=== PATIENT | female | born 1975 | race Caucasian/White ===

== ENCOUNTER 2016-09-05 15:38 | Emergency (ER) | payer SELFPAY ==
[2016-09-05 15:53] VITALS: BP 148/91
--- NOTE | 2016-09-05 16:00 | ER Document Report ---
ED Medical Screen (RME) - General Stated Complaint: FACIAL PRESSURE/NAUSEA Mode of Arrival: Ambulatory Notes: Patient presents to the emergency department with a complaint of sinus pressure for one week. She complains of nausea and dizziness. Denies fever vomiting reports history of sinus infections. I have greeted and performed a rapid initial assessment of this patient. A comprehensive ED assessment and evaluation of the patient, analysis of test results and completion of the medical decision making process will be conducted by additional ED providers. TRAVEL OUTSIDE OF THE [place] IN LAST 30 DAYS: No - Related Data Allergies/Adverse Reactions: Penicillins Allergy (Verified 06/30/16 15:29) Hives Past Medical History - Past Medical History Cardiac Medical History: Reports: Hx Hypercholesterolemia - borderline, Hx Hypertension - borderline Denies: Hx Coronary Artery Disease, Hx Heart Attack Pulmonary Medical History: Reports: Hx Asthma - with cold, Hx Bronchitis, Hx Pneumonia Denies: Hx COPD Neurological Medical History: Denies: Hx Cerebrovascular Accident, Hx Seizures Renal/ Medical History: Reports: Hx Kidney Stones GI Medical History: Reports: Hx Gastroesophageal Reflux Disease Musculoskeltal Medical History: Denies Hx Arthritis Past Surgical History: Reports: Hx Section, Hx Kidney (Renal Surgery), Hx Orthopedic Surgery - bilateral calfs for compartment syndrome/ l finger surgery, Hx Pancreatic Surgery. Denies: Hx Hysterectomy, Hx Pacemaker - Immunizations Immunizations up to date: Yes Hx Diphtheria, Pertussis, Tetanus Vaccination: Yes Physical Exam - Vital signs Vitals: Temp Pulse Resp BP Pulse Ox 98.0 F 88 14 148/91 H 97 09/05/16 15:52 09/05/16 15:52 09/05/16 15:52 09/05/16 15:52 09/05/16 15:52 Course - Vital Signs Vital signs: Temp Pulse Resp BP Pulse Ox 98.0 F 88 14 148/91 H 97 09/05/16 15:52 09/05/16 15:52 09/05/16 15:52 09/05/16 15:52 09/05/16 15:52
--- NOTE | 2016-09-05 17:26 | ER Document Report ---
[id number] PRESSURE/NAUSEA Mode of Arrival: Ambulatory Notes: The patient is a 41-year-old female, past medical history multiple episodes of sinusitis, presents with 1 week of left-sided sinus congestion and maxillary pain. She says this feels similar to her prior episodes. She says the pressure is causing mild nausea and intermittent episodes of vertigo. She denies fevers, nasal drainage, headache, vomiting, diarrhea, abdominal pain, ataxia, blurry vision or rash. TRAVEL OUTSIDE OF THE [place] IN LAST 30 DAYS: No - Related Data Allergies/Adverse Reactions: Penicillins Allergy (Verified 09/05/16 15:59) Hives Past Medical History - General Information source: Patient - Social History Smoking Status: Never Smoker Chew tobacco use (# tins/day): No Frequency of alcohol use: Rare Drug Abuse: None Family History: DM, Hypertension Patient has suicidal ideation: No Patient has homicidal ideation: No - Past Medical History Cardiac Medical History: Reports: Hx Hypercholesterolemia - borderline, Hx Hypertension - borderline Denies: Hx Coronary Artery Disease, Hx Heart Attack Pulmonary Medical History: Reports: Hx Asthma - with cold, Hx Bronchitis, Hx Pneumonia Denies: Hx COPD Neurological Medical History: Denies: Hx Cerebrovascular Accident, Hx Seizures Renal/ Medical History: Reports: Hx Kidney Stones. Denies: Hx Peritoneal Dialysis GI Medical History: Reports: Hx Gastroesophageal Reflux Disease Musculoskeltal Medical History: Denies Hx Arthritis Past Surgical History: Reports: Hx Section, Hx Kidney (Renal Surgery), Hx Orthopedic Surgery - bilateral calfs for compartment syndrome/ l finger surgery, Hx Pancreatic Surgery. Denies: Hx Hysterectomy, Hx Pacemaker - Immunizations Immunizations up to date: Yes Hx Diphtheria, Pertussis, Tetanus Vaccination: Yes Review of Systems - Review of Systems Notes: REVIEW OF SYSTEMS: CONSTITUTIONAL: -fevers, -chills EENT: -eye pain, -difficulty swallowing, +sinus congestion CARDIOVASCULAR:-chest pain, -syncope. RESPIRATORY: -cough, -SOB GASTROINTESTINAL: -abdominal pain, +nausea, -vomiting, -diarrhea GENITOURINARY: -dysuria, -hematuria MUSCULOSKELETAL: -back pain, -neck pain SKIN: -rash or skin lesions. HEMATOLOGIC: -easy bruising or bleeding. LYMPHATIC: -swollen, enlarged glands. NEUROLOGICAL: -altered mental status or loss of consciousness, -headache, - neurologic symptoms PSYCHIATRIC: -anxiety, -depression. ALL OTHER SYSTEMS REVIEWED AND NEGATIVE. Physical Exam - Vital signs Vitals: Temp Pulse Resp BP Pulse Ox 98.0 F 88 14 148/91 H 97 09/05/16 15:52 09/05/16 15:52 09/05/16 15:52 09/05/16 15:52 09/05/16 15:52 - Notes Notes: PHYSICAL EXAMINATION: GENERAL: Well-appearing, well-nourished and in no acute distress. HEAD: Atraumatic, normocephalic. EYES: Pupils equal round and reactive to light, extraocular movements intact, sclera anicteric, conjunctiva are normal. ENT: nares patent, oropharynx clear without exudates. Moist mucous membranes. NECK: Normal range of motion, supple without lymphadenopathy LUNGS: Breath sounds clear to auscultation bilaterally and equal. No wheezes rales or rhonchi. HEART: Regular rate and rhythm without murmurs ABDOMEN: Soft, nontender, normoactive bowel sounds. No guarding, no rebound. No masses appreciated. EXTREMITIES: Normal range of motion, no pitting or edema. No cyanosis. NEUROLOGICAL: Cranial nerves grossly intact. Normal speech, normal gait. Normal sensory, motor, and reflex exams. PSYCH: Normal mood, normal affect. SKIN: Warm, Dry, normal turgor, no rashes or lesions noted. Course - Re-evaluation Re-evalutation: Patient appears very well. Spoke to patient not symptomatic treatment with nasal steroids, sinus rinses and antihistamines. Patient requesting a prescription for antibiotics. Told her that this infection is most likely viral and to try the symptomatic treatment, but will provide her with a prescription to fill in one week if her symptoms have not resolved. Told to follow-up with ENT if her symptoms continue to recur. - Vital Signs Vital signs: Temp Pulse Resp BP Pulse Ox 98.5 F 68 16 148/91 H 98 09/05/16 18:26 09/05/16 18:26 09/05/16 18:26 09/05/16 15:52 09/05/16 18:26 Discharge - Discharge Clinical Impression: Sinusitis Qualifiers: Sinusitis location: maxillary Chronicity: chronic Qualified Code(s): J32.0 - Chronic maxillary sinusitis Condition: Good Disposition: HOME, SELF-CARE Additional Instructions: Use Flonase and Zyrtec to help with your nasal congestion. If your symptoms are not better in one week, you may fill your prescription for antibiotics. Sinusitis You have sinusitis, an infection of the sinus cavities of the face. The sinuses are air-filled chambers which open into the inside of the nose. Bacteria and pus fill a sinus, causing pain, drainage, and fever. Sinusitis is treated with antibiotics after 2 weeks of symptoms. Often, expectorants (to thin the sinus mucous) or decongestants (to reduce swelling) are prescribed as well. Healing requires seven to 10 days. Avoid chemical fumes, pollens, dusts, and smoke (especially cigarette smoke ). Keep the air humidified in your bedroom and work area and take plenty of liquids by mouth. This condition can be serious if the infection spreads. If your symptoms worsen, or if you develop severe headache, high fever, stiff neck, or a rash, you must call the doctor or return for re-evaluation. Prescriptions: Doxycycline Hyclate 100 mg PO BID #14 capsule Fluticasone Propionate [Flonase Nasal [place] 50 Mcg/[place] 16 gm] 1 spray NASL Q12 #1 inhaler Ondansetron [Zofran Odt 4 mg Tablet] 1 - 2 tab PO Q4H PRN #15 tab.rapdis PRN Reason: For Nausea/Vomiting
== END 2016-09-05 18:00 | disposition home or self-care (01) ==
LOC: ER 15:38
DX: J32.0 Chronic maxillary sinusitis (principal); R11.0 Nausea; R42 Dizziness and giddiness; Z87.442 Personal history of urinary calculi; Z88.0 Allergy status to penicillin
CPT/HCPCS: 99283

== ENCOUNTER 2016-09-10 07:52 | Emergency (ER) | payer SELFPAY ==
--- NOTE | 2016-09-10 08:33 | EKG REPORT ---
SEVERITY:- NORMAL ECG - SINUS RHYTHM : Confirmed by: Annabel Thomas 10-Sep-2016 08:32:59
--- NOTE | 2016-09-10 11:45 | ER Document Report ---
HPI - HPI Patient complains to provider of: dizzy, lighthead Onset: Yesterday - mild yesterday Onset/Duration: Sudden Pain Level: 3 Context: 41 yo non dm, non htn, non hyperlipidemic, non smoker, female had mild dizziness yesterday, but this am at the laundry mat when she bent forward at 7 am got very dizzy that lasted less than a minute. If she sat down it would go away quickly. Tx with doxycycline for sinus infection on 09-05-16 (3 days). She looked up about this rX lists it as a side effect. still has pressure on left maxillary sinus. no fever. some headache. Prior to the laundry mat, got dizzy after bending forward also had tightness in upper chest, like closing up like asthma attack (lasted few minuytes) Feeling anxious at the time, sat down to calm herself down. NO chest tightness now, mild dizziness.. Wants to continue the doxycycline, only 3 days left. EKG NSR. FHx: mom htn, hyperlipid,dm dad hyperlipids Associated Symptoms: None Exacerbated by: Denies Relieved by: Denies Similar symptoms previously: No Recently seen / treated by doctor: No - ROS ROS below otherwise negative: Yes Systems Reviewed and Negative: Yes All other systems reviewed and negative - CARDIOVASCULAR Cardiovascular: DENIES: Chest pain - REPRODUCTIVE Reproductive: DENIES: : - DERM Skin Color: Normal Past Medical History - General Information source: Patient - Social History Smoking Status: Never Smoker Chew tobacco use (# tins/day): No Frequency of alcohol use: None Drug Abuse: None Lives with: Spouse/Significant other Family History: DM, Hypertension Patient has suicidal ideation: No Patient has homicidal ideation: No - Past Medical History Cardiac Medical History: Reports: Hx Hypercholesterolemia - borderline, Hx Hypertension - borderline Pulmonary Medical History: Reports: Hx Asthma - with cold, Hx Bronchitis, Hx Pneumonia Renal/ Medical History: Reports: Hx Kidney Stones. Denies: Hx Peritoneal Dialysis GI Medical History: Reports: Hx Gastroesophageal Reflux Disease Past Surgical History: Reports: Hx Section, Hx Kidney (Renal Surgery), Hx Orthopedic Surgery - bilateral calfs for compartment syndrome/ l finger surgery, Hx Pancreatic Surgery. Denies: Hx Hysterectomy, Hx Pacemaker - Immunizations Immunizations up to date: Yes Hx Diphtheria, Pertussis, Tetanus Vaccination: Yes Vertical Provider Document - CONSTITUTIONAL Agree With Documented VS: Yes Exam Limitations: No Limitations General Appearance: No Apparent Distress - INFECTION CONTROL TRAVEL OUTSIDE OF THE [place] IN LAST 30 DAYS: No - HEENT HEENT: Atraumatic, Normocephalic. negative: Conjuctival Injection, Tympanic Membrane Red Notes: points to left maxillary sinus area for pain - NECK Neck: Supple. negative: Lymphadenopathy-Left, Lymphadenopathy-Right - RESPIRATORY Respiratory: Breath Sounds Normal, No Respiratory Distress O2 Sat by Pulse Oximetry: 99 - CARDIOVASCULAR Cardiovascular: Regular Rate, Regular Rhythm - GI/ABDOMEN Gastrointestinal: Abdomen Soft, Abdomen Non-Tender, No Organomegaly - MUSCULOSKELETAL/EXTREMETIES Musculoskeletal/Extremeties: MAEW, FROM, Non-Tender - NEURO Level of Consciousness: Awake, Alert, Appropriate Motor/Sensory: No Motor Deficit, No Sensory Deficit Notes: romberg negative - DERM Integumentary: Warm, Dry, No Rash Course - Re-evaluation Re-evalutation: 09/10/16 12:[address] Toledo for disposition. ok to go home, referral for dizziness - Vital Signs Vital signs: Temp Pulse Resp BP Pulse Ox 97.5 F 78 18 153/94 H 99 09/10/16 07:59 09/10/16 07:59 09/10/16 07:59 09/10/16 07:59 09/10/16 07:59 Discharge - Discharge Clinical Impression: dizziness, episode of chest tightness, hx sinus infection, Elevated blood pressure reading Condition: Good Disposition: HOME, SELF-CARE Instructions: Dizziness ([facility]), Meclizine ([facility]), High Blood Pressure ([facility]), Family Physicians / Practices Additional Instructions: see your doctor for follow up, if you don't have one, I have given you a list, your blood pressures here when you come to the ER are elevated today and previous visits referral to neurologist if the dizziness persists to er if worse Prescriptions: Meclizine HCl [Verticalm] 25 mg PO QIDP PRN #30 tablet PRN Reason: Referrals: DENIZ FAUSTIN MD [ACTIVE STAFF] - Follow up as needed
[2016-09-10] MEDS ORDERED: MECLIZINE HCL 25 MG TABLET PO ONE (12:08)
[2016-09-10 12:50] VITALS: BP 140/93
== END 2016-09-10 12:49 | disposition home or self-care (01) ==
LOC: ER 07:52
DX: R42 Dizziness and giddiness (principal); R07.9 Chest pain, unspecified; E78.00 Pure hypercholesterolemia, unspecified; K21.9 Gastro-esophageal reflux disease without esophagitis; Z87.442 Personal history of urinary calculi
CPT/HCPCS: 71020; 93005; 93010; 99284

== ENCOUNTER 2016-12-14 12:47 | Inpatient (IN) | payer MEDICAID ==
[~2016-12-14 12:47] MED LIST: DEXAMETHASONE SOD PHOSPHATE INJ 4 MG/1 ML VIAL ONE; GLYCOPYRROLATE INJ 0.4 MG/2 ML VIAL ONE; LIDOCAINE 2% INJ-PF (20 MG/ML) 10 ML AMPUL ONE; METOCLOPRAMIDE HCL INJ/PF 10 MG/2 ML SDV ONE; NEOSTIGMINE METHYLSULFATE 10 MG/10 ML VIAL ONE; ONDANSETRON HCL INJ/PF 4 MG/2 ML SDV ONE; ROCURONIUM BROMIDE INJ 50 MG/5 ML VIAL IV ONE; SUCCINYLCHOLINE CHLORIDE INJ 200 MG/10 ML VIAL ONE
[2016-12-14] MEDS ORDERED: METOCLOPRAMIDE HCL ORAL SOLN 10 MG/10 ML UDCUP PO ONE (13:55)
[2016-12-14] MEDS ORDERED: LIDOCAINE 2% VISCOUS SOLN 20 ML UDCUP PO ONE (13:55)
[2016-12-14] MEDS ORDERED: MAG HYDROX/AL HYDROX/SIMETH SUSP 30 ML UDCUP PO ONE (13:55)
--- NOTE | 2016-12-14 13:57 | ER Document Report ---
ED GI/ - General Chief Complaint: Epigastric Pain Stated Complaint: ABDOMINAL PAIN Time Seen by Provider: 12/14/16 13:54 Mode of Arrival: Ambulatory Information source: Patient TRAVEL OUTSIDE OF THE [place] IN LAST 30 DAYS: No - HPI Patient complains to provider of: Abdominal pain Onset: Yesterday Timing/Duration: Persistent Quality of pain: Achy Severity at maximum: Moderate Severity in ED: Moderate Pain Level: 3 Location: Epigastric Associated symptoms: Diarrhea - White Colored stool, Nausea Exacerbated by: Food Relieved by: Denies Similar symptoms previously: No Recently seen / treated by doctor: No Notes: 12/14/16 13:56 It is a 41-year-old female who presents to the emergency room for epigastric abdominal pain has been going on since yesterday, worsened by food, she noted a whitish colored stool this morning as well, she reports nausea but no vomiting, no fever chills, no urinary symptoms, no history of similar symptoms previously , she does have a history of acid reflux, took Tums today without any relief of symptoms - Related Data Allergies/Adverse Reactions: Penicillins Allergy (Verified 12/14/16 13:54) Hives Past Medical History - General Information source: Patient - Social History Smoking Status: Never Smoker Chew tobacco use (# tins/day): No Frequency of alcohol use: None Drug Abuse: None Family History: DM, Hypertension Patient has suicidal ideation: No Patient has homicidal ideation: No - Past Medical History Cardiac Medical History: Reports: Hx Hypercholesterolemia - borderline, Hx Hypertension - borderline Denies: Hx Coronary Artery Disease, Hx Heart Attack Pulmonary Medical History: Reports: Hx Asthma - with cold, Hx Bronchitis, Hx Pneumonia Denies: Hx COPD Neurological Medical History: Denies: Hx Cerebrovascular Accident, Hx Seizures Renal/ Medical History: Reports: Hx Kidney Stones. Denies: Hx Peritoneal Dialysis GI Medical History: Reports: Hx Gastroesophageal Reflux Disease Musculoskeltal Medical History: Denies Hx Arthritis Past Surgical History: Reports: Hx Section, Hx Kidney (Renal Surgery), Hx Orthopedic Surgery - bilateral calfs for compartment syndrome/ l finger surgery, Hx Pancreatic Surgery. Denies: Hx Hysterectomy, Hx Pacemaker - Immunizations Immunizations up to date: Yes Hx Diphtheria, Pertussis, Tetanus Vaccination: Yes Review of Systems - Review of Systems Constitutional: No symptoms reported EENT: No symptoms reported Cardiovascular: No symptoms reported Respiratory: No symptoms reported Gastrointestinal: See HPI Genitourinary: No symptoms reported Female Genitourinary: No symptoms reported Musculoskeletal: No symptoms reported Skin: No symptoms reported Hematologic/Lymphatic: No symptoms reported Neurological/Psychological: No symptoms reported -: Yes All other systems reviewed and negative Physical Exam - Vital signs Vitals: Temp Pulse Resp BP Pulse Ox 98 F 76 18 166/82 H 97 12/14/16 13:10 12/14/16 13:10 12/14/16 13:10 12/14/16 13:10 12/14/16 13:10 Interpretation: Normal - General General appearance: Appears well, Alert - HEENT Head: Normocephalic, Atraumatic Eyes: Normal Pupils: PERRL - Respiratory Respiratory status: No respiratory distress Chest status: Nontender Breath sounds: Normal Chest palpation: Normal - Cardiovascular Rhythm: Regular Heart sounds: Normal auscultation Murmur: No - Abdominal Inspection: Normal Distension: No distension Bowel sounds: Normal Tenderness: Tender - epigastric Organomegaly: No organomegaly - Back Back: Normal, Nontender - Extremities General upper extremity: Normal inspection, Nontender, Normal color, Normal ROM , Normal temperature General lower extremity: Normal inspection, Nontender, Normal color, Normal ROM , Normal temperature, Normal weight bearing. No: Hamlet's sign - Neurological Neuro grossly intact: Yes Cognition: Normal Orientation: AAOx4 Wale Coma Scale Eye Opening: Spontaneous Avinger Coma Scale Verbal: Oriented Wale Coma Scale Motor: Obeys Commands Wale Coma Scale Total: 15 Speech: Normal Motor strength normal: LUE, RUE, LLE, RLE Sensory: Normal - Psychological Associated symptoms: Normal affect, Normal mood - Skin Skin Temperature: Warm Skin Moisture: Dry Skin Color: Normal Course - Re-evaluation Re-evalutation: 12/14/16 16:27 Was discussed with on-call surgeon, Dr. Piper, who agrees to admit for further evaluation and treatment - Vital Signs Vital signs: Temp Pulse Resp BP Pulse Ox 97.9 F 67 18 144/79 H 98 12/14/16 16:50 12/14/16 16:50 12/14/16 16:50 12/14/16 16:50 12/14/16 16:50 - Laboratory Result Diagrams: 12/14/16 14:15 12/14/16 14:15 Laboratory results interpreted by me: 12/14/16 12/14/16 12/14/16 14:15 14:15 14:15 RDW 14.1 H Total Bilirubin 2.8 H Direct Bilirubin 1.5 H AST 970 H ALT 527 H Alkaline Phosphatase 187 H Urine Blood SMALL H Urine Urobilinogen 2.0 H - Diagnostic Test Radiology reviewed: Image reviewed, Reports reviewed - Consults Dr Piper Time consulted: 16:58 Reason for consultation: 12/14/16 16:58 RUQ pain, cholelithiasis Consulted provider: will come to ER - Transfer of Care Care transferred to following provider: Dr Piper Discharge - Discharge Clinical Impression: Cholecystitis Cholelithiasis Qualifiers: Cholelithiasis location: gallbladder Cholecystitis presence: with cholecystitis Cholecystitis acuity: acute Biliary obstruction: without biliary obstruction Qualified Code(s): K80.00 - Calculus of gallbladder with acute cholecystitis without obstruction Condition: Stable Disposition: ADMITTED INPATIENT Admitting Provider: Surgicalist Unit Admitted: Surgical Floor
[2016-12-14 14:37] LABS: ABSOLUTE EOSINOPHILS # (AUTO) 0.1 10^3/uL (0.0-0.6); ABSOLUTE LYMPHOCYTES (AUTO) 1.6 10^3/uL (0.5-4.7); ABSOLUTE MONOCYTES (AUTO) 0.5 10^3/uL (0.1-1.4); ABSOLUTE NEUT (AUTO) 5.4 10^3/uL (1.7-8.2); BASOPHILS % (AUTO) 0.5 % (0-2); EOSINOPHILS % (AUTO) 0.9 % (0-6); HEMATOCRIT 38.8 % (36.0-47.0); HGB HCT DIFFERENCE 0.2; LYMPHOCYTES % (AUTO) 21.4 % (13-45); MEAN CORPUSCULAR HEMOGLOBIN 29.6 pg (27.0-33.4); MEAN CORPUSCULAR HGB CONC 33.6 g/dL (32.0-36.0); MEAN CORPUSCULAR VOLUME 88 fl (80-97); MONOCYTES % (AUTO) 6.1 % (3-13); RED BLOOD COUNT 4.39 10^6/uL (3.72-5.28); RED CELL DISTRIBUTION WIDTH 14.1 % (11.5-14.0); SEGMENTED NEUTROPHILS % (AUTO) 71.1 % (42-78); WHITE BLOOD COUNT 7.7 10^3/uL (4.0-10.5)
[2016-12-14 14:54] LABS: APPEARANCE,URINE CLOUDY; BILIRUBIN,URINE NEGATIVE (NEGATIVE); CALCIUM OXALATE CRYSTALS,URINE TOO NUMEROUS TO CNT /HPF; GLUCOSE, URINE NEGATIVE (NEGATIVE); KETONES,URINE NEGATIVE (NEGATIVE); LEUKOCYTE ESTERASE,URINE NEGATIVE (NEGATIVE); NITRITE,URINE NEGATIVE (NEGATIVE); PROTEIN,URINE NEGATIVE (NEGATIVE); URINE SPECIFIC GRAVITY 1.023
[2016-12-14 15:05] LABS: ALANINE AMINOTRANSFERASE 527 U/L (9-52); ALBUMIN 4.5 g/dL (3.5-5.0); ALKALINE PHOSPHATASE 187 U/L (38-126); ANION GAP 11 (5-19); BILIRUBIN,DIRECT 1.5 mg/dL (0.0-0.4); BILIRUBIN,TOTAL 2.8 mg/dL (0.2-1.3); BLOOD UREA NITROGEN 11 mg/dL (7-20); CARBON DIOXIDE 26 mmol/L (22-30); CHLORIDE 106 mmol/L (98-107); CREATININE RESULT 0.75 mg/dL (0.52-1.25); GLUCOSE 97 mg/dL (75-110); LIPASE 107.7 U/L (23-300); POTASSIUM 4.6 mmol/L (3.6-5.0); SODIUM 142.6 mmol/L (137-145); TOTAL PROTEIN 7.9 g/dL (6.3-8.2)
[2016-12-14 15:14] LABS: ASPARTATE AMINO TRANSFERASE 970 U/L (14-36)
[2016-12-14] MEDS ORDERED: OXYCODONE-ACETAMINOPHEN 5-325 MG TABLET PO ONE (15:23)
--- NOTE | 2016-12-14 16:08 | RADIOLOGY REPORT (SQ) ---
EXAM DESCRIPTION: U/S ABDOMEN LIMITED W/O DOP COMPLETED DATE/TIME: 12/14/2016 3:58 pm REASON FOR STUDY: pain COMPARISON: None. TECHNIQUE: Dynamic and static grayscale images acquired of the abdomen and recorded on PACS. Additio nal selected color Doppler and spectral images recorded. LIMITATIONS: None. FINDINGS: PANCREAS: Head and body of the pancreas are normal. The tail was obscured by gas. LIVER: 15.6 cm. Normal echotexture. LIVER VASCULATURE: Normal directional flow of the main portal vein and hepatic veins. GALLBLADDER: Gallbladder is contracted with stones. There is slight thickening of the gallbladder wa ll. There is no pericholecystic fluid. ULTRASOUND-DETECTED PEACOCK'S SIGN: Negative. INTRAHEPATIC DUCTS AND COMMON DUCT: The common bile duct is normal at 4 mm. INFERIOR VENA CAVA: Normal flow. AORTA: Proximal and middle aorta are normal. The distal aorta was obscured by gas. RIGHT KIDNEY: Normal size, measuring 9.7 mm. Normal echogenicity. No mass. No stones. No hydrone phrosis. PERITONEAL AND RIGHT PLEURAL SPACE: No ascites or effusions. OTHER: No other significant findings. IMPRESSION: Cholelithiasis with some thickening of the gallbladder wall, but with a normal common bi le duct. TECHNICAL DOCUMENTATION: JOB ID: [id number] [employer]- All Rights Reserved
[2016-12-14] MEDS ORDERED: RINGERS SOLUTION,LACTATED 1,000 ML IV PRN ×2 (17:34→20:05)
--- NOTE | 2016-12-14 17:43 | PDOC H&P ---
History of Present Illness Admission Date/PCP: 12/14/16 16:43 History of Present Illness: KECIA GIRON is a 41 year old female Complaining of abdominal pain. According to patient she has had a several week to month history of postprandial abdominal pain which she has minimized until last night when she developed acute onset abdominal pain after eating associated with nausea but no vomiting. She took a variety of [id number] medications without relief. Today she continued to hurt mostly in her right upper quadrant. She did have 2 PB J sandwiches this morning. She was seen in the emergency department this afternoon where she was evaluated found to have abdominal tenderness, and abnormal liver function studies. Gallbladder ultrasonography revealed cholelithiasis with thickened wall of the gallbladder, common bile duct normal. Of note patient states her stools have been light colored in her urine very dark. There is a strong family history of gallstones. She denies history of trauma previous history of gastrointestinal problems or diseases or surgery. Past Medical History Cardiac Medical History: Reports: Hyperlipidema - borderline, Hypertension - borderline Denies: Coronary Artery Disease, Myocardial Infarction Pulmonary Medical History: Reports: Asthma - with cold, Bronchitis, Pneumonia Denies: Chronic Obstructive Pulmonary Disease (COPD) Neurological Medical History: Denies: Seizures GI Medical History: Reports: Gastroesophageal Reflux Disease Musculoskeltal Medical History: Denies: Arthritis Hematology: Denies: Anemia Past Surgical History Past Surgical History: Reports: Section, Orthopedic Surgery - bilateral calfs for compartment syndrome/ l finger surgery, Other - Her surgery and bilateral tubal ligation Denies: Hysterectomy, Pacemaker Social History Information Source: Patient Smoking Status: Never Smoker Hx Recreational Drug Use: No Hx Prescription Drug Abuse: No Family History Family History: DM, Hypertension Parental Family History Reviewed: Yes Children Family History Reviewed: Yes Sibling(s) Family History Reviewed.: Yes Medication/Allergy Home Medications: Bupropion HCl [Wellbutrin Sr 150 mg Tablet] 1 tab PO Q12 10/07/14 Ciprofloxacin HCl [Cipro 500 mg Tablet] 500 mg PO BID #10 tablet 10/07/14 Oxycodone HCl/Acetaminophen [Percocet 5-325 mg Tablet] 1 - 2 tab PO ASDIR PRN # 15 tablet 10/07/14 Promethazine HCl [Phenergan 25 mg Tablet] 25 - 50 mg PO ASDIR PRN #12 tablet Tamsulosin HCl [Flomax] 0.4 mg PO DAILY #7 cap.sr.24h 10/07/14 Ciprofloxacin HCl [Cipro 500 mg Tablet] 500 mg PO BID #10 tablet 01/07/15 Oxycodone HCl/Acetaminophen [Percocet 5-325 mg Tablet] 1 - 2 tab PO Q4H PRN #25 tablet 01/07/15 Promethazine HCl [Phenergan 25 mg Tablet] 1 - 2 tab PO Q6H PRN #15 tablet Tamsulosin HCl [Flomax] 0.4 mg PO DAILY #7 cap.sr.24h 01/07/15 Albuterol Sulfate [Proair HFA] 1 - 2 puff IH Q4 PRN #1 inhaler 01/08/16 Inhaler, Assist Devices [Aerochamber Mv] 1 each MC DAILY #1 inhaler 01/08/16 Prednisone 20 mg PO DAILY #15 tablet 01/08/16 Ibuprofen [Motrin 600 Mg Tablet] 600 mg PO TID #15 tablet 04/10/16 Naproxen [Naprosyn 375 Mg Tablet] 375 mg PO BIDP PRN #15 tablet 06/21/16 Naproxen [Naprosyn 250 Nmg Tablet] 1 tab PO BID #14 tablet 06/30/16 Oxycodone HCl/Acetaminophen [Percocet 5-325 mg Tablet] 1 tab PO ASDIR PRN #15 tablet 06/30/16 Prednisone [Deltasone 10 mg Tablet] 10 mg PO ASDIR PRN #21 tablet 06/30/16 Doxycycline Hyclate 100 mg PO BID #14 capsule 09/05/16 Fluticasone Propionate [Flonase Nasal Hollister 50 Mcg/Hollister 16 gm] 1 spray NASL Q12 #1 inhaler 09/05/16 Ondansetron [Zofran Odt 4 mg Tablet] 1 - 2 tab PO Q4H PRN #15 tab.rapdis Meclizine HCl [Verticalm] 25 mg PO QIDP PRN #30 tablet 09/10/16 Allergies/Adverse Reactions: Penicillins Allergy (Verified 12/14/16 13:54) Hives Review of Systems Constitutional: ABSENT: chills, fever(s), headache(s), weight gain, weight loss Eyes: ABSENT: visual disturbances Ears: ABSENT: hearing changes Cardiovascular: ABSENT: chest pain, dyspnea on exertion, edema, orthropnea, palpitations Respiratory: ABSENT: cough, hemoptysis Gastrointestinal: PRESENT: as per HPI Musculoskeletal: ABSENT: joint swelling Integumentary: ABSENT: rash, wounds Neurological: ABSENT: abnormal gait, abnormal speech, confusion, dizziness, focal weakness, syncope Endocrine: ABSENT: cold intolerance, heat intolerance, polydipsia, polyuria Physical Exam Vital Signs: Temp Pulse Resp BP Pulse Ox 97.9 F 67 18 144/79 H 98 12/14/16 16:50 12/14/16 16:50 12/14/16 16:50 12/14/16 16:50 12/14/16 16:50 General appearance: PRESENT: no acute distress Head exam: PRESENT: normocephalic Eye exam: PRESENT: EOMI Ear exam: PRESENT: normal external ear exam Mouth exam: PRESENT: dry mucosa Neck exam: PRESENT: full ROM Respiratory exam: PRESENT: clear to auscultation mc Cardiovascular exam: PRESENT: RRR Pulses: PRESENT: normal carotid pulses, normal radial pulses, normal femoral pulses GI/Abdominal exam: PRESENT: other - The right upper quadrant to deep palpation. No peritoneal signs no rigidity Extremities exam: PRESENT: full ROM Musculoskeletal exam: PRESENT: full ROM Neurological exam: PRESENT: alert, altered, awake, oriented to person, oriented to place Psychiatric exam: PRESENT: appropriate affect Skin exam: PRESENT: dry Results Impressions: Abdomen Ultrasound 12/14/16 15:22 IMPRESSION: Cholelithiasis with some thickening of the gallbladder wall, but with a normal common bile duct. Assessment & Plan - Diagnosis (1) Cholelithiasis Qualifiers: Cholelithiasis location: gallbladder Cholecystitis presence: with cholecystitis Cholecystitis acuity: acute Biliary obstruction: without biliary obstruction Qualified Code(s): K80.00 - Calculus of gallbladder with acute cholecystitis without obstruction Plan: . Patient has acute cholecystitis with cholelithiasis, and associated liver function elevation. She may have passed a common duct stone although her common bile duct was interpreted as 4 mm in diameter by ultrasonography. 2. I have suggested the patient be admitted kept n.p.o. on IV fluids, intravenous antibiotics, and be taken to the operating for interval laparoscopic , possible open cholecystectomy with intraoperative cholangiography. I described the mechanics of the operation as well as a description of the wrist benefits alternatives including bleeding, infection, bile duct injury and need for additional intervention. I believe she understands and agrees to proceed. 3. If the patient is found to have a retained common bile duct stone, postoperative ERCP possibly at another institution may be required. I explained this to the patient. - Time Time Spent: 50 to 70 Minutes Critical Time spent with patient: 15-24 minutes Medications reviewed and adjusted accordingly: Yes Anticipated discharge: Home Within: within 48 hours - Inpatient Certification Based on my medical assessment, after consideration of the patient's comorbidities, presenting symptoms, or acuity I expect that the services needed warrant INPATIENT care.: Yes Medical Necessity: Need For IV Fluids, Need for Pain Control, Need for IV Antibiotics, Need for Surgery
[2016-12-14] MEDS ORDERED: MIDAZOLAM 2 MG/2 ML INJ ONE (17:57)
[2016-12-14] MEDS ORDERED: FENTANYL CITRATE INJ/PF 250 MCG/5 ML AMPULE ONE (17:57)
[2016-12-14] MEDS ORDERED: MORPHINE SULFATE 10 MG/ML INJ ONE (17:58)
[2016-12-14] MEDS ORDERED: PROPOFOL INJ 200 MG/20 ML VIAL IV ONE (17:58)
[2016-12-14] MEDS ORDERED: ACETAMINOPHEN 100 ML IV ONE (17:58)
[2016-12-14] MEDS ORDERED: BUPIVACAINE HCL 0.25 % INJ/PF (2.5 MG/1 ML) 30 ML VIAL ONE (18:04)
[2016-12-14] MEDS ORDERED: CIPROFLOXACIN 400 MG/D5W RTU 400 MG/200 ML RTUPB IV ONE (18:52)
[2016-12-14] MEDS ORDERED: HYDROMORPHONE HCL INJ/PF 2 MG/ML AMPULE ONE (19:11)
[2016-12-14] MEDS ORDERED: FENTANYL CITRATE INJ/PF 100 MCG/2 ML AMPUL IV PRN ×3 (19:39)
[2016-12-14] MEDS ORDERED: PROMETHAZINE HCL INJ 25 MG/1 ML VIAL IV PRN (19:39)
[2016-12-14] MEDS ORDERED: DIPHENHYDRAMINE HCL 50 MG/ML VIAL IV PRN (19:39)
[2016-12-14] MEDS ORDERED: MORPHINE SULFATE 10 MG/ML INJ IV PRN (19:39)
[2016-12-14] MEDS ORDERED: ONDANSETRON HCL INJ/PF 4 MG/2 ML SDV IV PRN (20:05)
--- NOTE | 2016-12-14 20:05 | Operative Report ---
Operative Report DATE OF SURGERY: 12/14/16 PREOPERATIVE DIAGNOSIS: 1. Symptomatic cholelithiasis with cholecystitis. 2. Elevated liver function studies POSTOPERATIVE DIAGNOSIS: Same OPERATION: 1. Laparoscopic cholecystectomy. 2. Unsuccessful intraoperative cholangiography SURGEON: TOMASZ YAO ANESTHESIA: GA TISSUE REMOVED OR ALTERED: 1 gallbladder with stones ESTIMATED BLOOD LOSS: Scant INTRAOPERATIVE FINDINGS: See below PROCEDURE: The patient was taken to the preop holding area to the main operating room and general anesthesia was induced. Abdomen was exposed, prepped draped sterile fashion patient is a laparoscopic cholecystectomy. Surgical intervention, or conducted A supraumbilical vertical incision made and a varies needle was inserted into to the peritoneal cavity and pneumoperitoneum established. The verres needle was removed, and a 5 mm port was inserted 5 mm flexible scope was inserted. Then 3 additional 5 mm ports were inserted under direct visualization. Findings were significant for no evidence of visceral or vascular injury the peritoneal cavity The gallbladder was mildly distended. It was grasped from the fundus and the infundibulum. Dissection was begun with a bottom up approach by dissecting out the cystic artery and the cystic duct. These 2 structures were in their classic location. [place] of kilo was opened widely. Cystic artery was clipped twice proximally once distally and divided with scissors. The gallbladder was now suspended by the cystic duct as well as the plate attachment to the liver surface. Because of the history of elevated liver function studies, despite a normal diameter common bile duct by ultrasonography , I felt that a cholangiogram would be useful to rule out common duct stone. A clip was then placed on the gallbladder side of the cystic duct. A incision was made into the cystic duct with scissors and the disposable cholangiogram catheter was then threaded through a separate stab wound in the anterior abdominal wall. Once the cystic duct was opened and there was leakage of bile nor the release of any small stones or sludge despite manipulating the cystic duct nor the common duct area. Multiple attempts were made to thread the narrow disposable cholangiogram catheter into the cystic duct stump. Eventually we thought we had a successful entry, and clip catheter into position. We shot a series of full contrast of Isovue images, using approximately 5 cc of contrast, and fluoroscopically the findings were significant for extravasation of contrast. When we returned to the peritoneal cavity with our laparoscopic instruments it was apparent that the catheter came into the anterior opening in the cystic duct stump and exited just posterior to the entry site. The cystic duct was very narrow and I felt that at this point we gave a satisfactory effort and that we would avoid any further times a cholangiography shows to minimize damage to the duct system. We removed the clip of fixing the cholangiogram catheter to the cystic duct thereby releasing the catheter. The cystic duct stump was formally clipped now closed. The cystic duct was divided in its entirety and then the gallbladder removed from the liver bed using hook cautery dissection. The gallbladder and stones were placed in an Endobag and brought the patient is super umbilical port site. Return the peritoneal cavity and checked for bleeding and there was none. There is no evidence of bile leak. We did watch that the peritoneal cavity thoroughly, and again there was no evidence of bile leaking anywhere. I did not believe a drain was necessary. All ports removed under direct visualization and pneumoperitoneum evacuated wounds closed with 0 Vicryl 3-0 Vicryl benzoin and Steri-Strips. Patient procedure well and extubated and taken recovery in stable condition. Plan to check patient's liver function studies in the morning. If they are higher than today, patient will need to be transferred for ERCP.
--- NOTE | 2016-12-14 20:29 | RADIOLOGY REPORT (SQ) ---
EXAM DESCRIPTION: CHOLANGIOGRAM OPERATIVE; NO CHG FLUORO COMPLETED DATE/TIME: 12/14/2016 8:08 pm REASON FOR STUDY: CHOLANGIOGRAM COMPARISON: None. FLUOROSCOPY TIME: 0 MINUTES. 1 image saved to PACS. TECHNIQUE: Single image were obtained from an intraoperative cholangiogram. LIMITATIONS: None. FINDINGS: LIMITED SINGLE IMAGE WITH POSSIBLE OPACIFICATION OF COMMON BILE DUCT CYSTIC DUCT WITH EXTR AVASATION OF CONTRAST TO THE GALLBLADDER FOSSA IMPRESSION: INTRAOPERATIVE CHOLANGIOGRAM. COMMENT: Quality ID 145: Final reports for procedures using fluoroscopy that document radiation exp osure indices, or exposure time and number of fluorographic images (if radiation exposure indices are not available) TECHNICAL DOCUMENTATION: JOB ID: [id number] [employer]- All Rights Reserved
--- NOTE | 2016-12-14 20:29 | RADIOLOGY REPORT (SQ) ---
EXAM DESCRIPTION: CHOLANGIOGRAM OPERATIVE; NO CHG FLUORO COMPLETED DATE/TIME: 12/14/2016 8:08 pm REASON FOR STUDY: CHOLANGIOGRAM COMPARISON: None. FLUOROSCOPY TIME: 0 MINUTES. 1 image saved to PACS. TECHNIQUE: Single image were obtained from an intraoperative cholangiogram. LIMITATIONS: None. FINDINGS: LIMITED SINGLE IMAGE WITH POSSIBLE OPACIFICATION OF COMMON BILE DUCT CYSTIC DUCT WITH EXTR AVASATION OF CONTRAST TO THE GALLBLADDER FOSSA IMPRESSION: INTRAOPERATIVE CHOLANGIOGRAM. COMMENT: Quality ID 145: Final reports for procedures using fluoroscopy that document radiation exp osure indices, or exposure time and number of fluorographic images (if radiation exposure indices are not available) TECHNICAL DOCUMENTATION: JOB ID: [id number] [employer]- All Rights Reserved
[2016-12-14] MEDS: MORPHINE SULFATE 10 MG/ML INJ IV PRN (22:07)
[2016-12-15] MEDS: MORPHINE SULFATE 10 MG/ML INJ IV PRN ×4 (02:24→14:32)
[2016-12-15 06:29] LABS: ALANINE AMINOTRANSFERASE 493 U/L (9-52); ALKALINE PHOSPHATASE 189 U/L (38-126); ASPARTATE AMINO TRANSFERASE 438 U/L (14-36); BILIRUBIN,DIRECT 0.7 mg/dL (0.0-0.4); BILIRUBIN,TOTAL 1.8 mg/dL (0.2-1.3); TOTAL PROTEIN 6.6 g/dL (6.3-8.2)
[2016-12-15] MEDS ORDERED: ERTAPENEM SODIUM 1 GM in NORMAL SALINE 50 ML IV SCH (10:00)
--- NOTE | 2016-12-15 10:00 | PDOC PROGRESS REPORT ---
Subjective Progress Note for:: 12/15/16 Subjective:: Patient is doing well, no complaints, voiding, feels much better postoperatively Physical Exam Vital Signs: Temp Pulse Resp BP Pulse Ox 98.1 F 76 16 134/70 H 100 12/15/16 07:31 12/15/16 07:31 12/15/16 07:31 12/15/16 07:31 12/15/16 07:31 Intake & Output 12/14/16 12/15/16 12/16/16 06:59 06:59 06:59 Intake Total 1890 175 Output Total 1370 Balance 520 175 General appearance: PRESENT: no acute distress GI/Abdominal exam: PRESENT: other - Incision was closed and covered. Abdomen is soft no focal Results Laboratory Results: 12/15/16 06:05 Total Bilirubin 1.8 H AST 438 H ALT 493 H Alkaline Phosphatase 189 H Total Protein 6.6 Albumin 4.0 Impressions: Cholangiogram 12/14/16 00:00 IMPRESSION: INTRAOPERATIVE CHOLANGIOGRAM. Fluoroscopy 12/14/16 00:00 IMPRESSION: INTRAOPERATIVE CHOLANGIOGRAM. Abdomen Ultrasound 12/14/16 15:22 IMPRESSION: Cholelithiasis with some thickening of the gallbladder wall, but with a normal common bile duct. Assessment & Plan - Diagnosis (1) Cholelithiasis Qualifiers: Cholelithiasis location: gallbladder Cholecystitis presence: with cholecystitis Cholecystitis acuity: acute Biliary obstruction: without biliary obstruction Qualified Code(s): K80.00 - Calculus of gallbladder with acute cholecystitis without obstruction Plan: 1. Patient is 1 day status post laparoscopic cholecystectomy with unsuccessful intraoperative cholangiography. He is doing well, feels better. I explained to her intraoperative events and the mechanical challenge of trying to perform the cholangiogram. 2. Patient's liver function studies are diminishing, and I discussed this with the patient. In light of this, and her clinical improvement, I would suggest continuing the current treatment course. 3. We will advance her diet, and recheck liver function studies this evening. If closer to normal, we will discharge patient home. If liver function studies are still elevated, then we will consider referral for ERCP to rule out retained common duct stone.
[2016-12-15 18:27] LABS: ALANINE AMINOTRANSFERASE 395 U/L (9-52); ALBUMIN 3.7 g/dL (3.5-5.0); ALKALINE PHOSPHATASE 163 U/L (38-126); ASPARTATE AMINO TRANSFERASE 265 U/L (14-36); BILIRUBIN,DIRECT 0.4 mg/dL (0.0-0.4); BILIRUBIN,TOTAL 1.2 mg/dL (0.2-1.3); TOTAL PROTEIN 6.7 g/dL (6.3-8.2)
[2016-12-15 20:17] VITALS: BP 112/66
--- NOTE | 2016-12-16 10:33 | DISCHARGE SUMMARY E ---
Discharge Summary NAME: KECIA GIRON : 1975 AGE: 41Y ADMITTED: 12/14/2016 DISCHARGED: 12/15/2016 REASON FOR ADMISSION: Abdominal pain. SUMMARY OF HOSPITALIZATION: The patient is a 41-year-old female who presents to the emergency department complaining of abdominal pain, associated with nausea. Pain was worse over the last 12 hours. She was evaluated in the emergency department, where she was found to have a mild leukocytosis and elevated liver function studies. Gallbladder ultrasonography revealed cholelithiasis with thickened wall. Common bile duct was interpreted as normal caliber. The patient was admitted to the surgicalist service, kept n.p.o. and taken to the operating room by Dr. Piper on 12/14/2016, where she underwent laparoscopic cholecystectomy and incomplete cholangiography. The cholangiogram could not be performed due to inability to access the cystic duct with a cholangiogram catheter. The patient tolerated the procedure well, and had an uneventful postoperative course. Her total bilirubin came down from 2.8 on admission to 1.2 (36 hours later) along with a decrease in the other liver function studies. By this time, she was having no significant abdominal pain and only incisional pain. The patient was felt to be safe for discharge home. FINAL DIAGNOSIS: Symptomatic cholelithiasis and cholecystitis, status post laparoscopic cholecystectomy with incomplete cholangiogram. DISPOSITION: The patient was discharged home in the care of the family. Follow up with Dr. Piper at the surgical clinic in approximately 1 week. Resume preoperative medications, diet, and activities. DICTATING PHYSICIAN: TOMASZ PIPER M.D. [id number] Y#: [id number] ID: [id number] JOB#: [id number] ACCT: [id number] cc:TOMASZ PIPER M.D. [facility],
== END 2016-12-15 21:00 | disposition home or self-care (01) | DRG 419 ==
LOC: ER 12:47 → EH 16:43 → 5 21:10
PROVIDERS: ADMIT Surgery; ATTEND Surgery
PROC: BF001ZZ Plain Radiography of Bile Ducts using Low Osmolar Contrast (ICD-10-PCS; 2016-12-14)
PROC: 0FT44ZZ Resection of Gallbladder, Percutaneous Endoscopic Approach (ICD-10-PCS; principal; 2016-12-14 18:30)
DX: K80.00 Calculus of gallbladder with acute cholecystitis without obstruction (principal); E78.5 Hyperlipidemia, unspecified; I10 Essential (primary) hypertension; J45.909 Unspecified asthma, uncomplicated; K21.9 Gastro-esophageal reflux disease without esophagitis; R94.5 Abnormal results of liver function studies; Z79.52 Long term (current) use of systemic steroids; Z79.899 Other long term (current) drug therapy; Z88.0 Allergy status to penicillin; Z83.3 Family history of diabetes mellitus; Z82.49 Family history of ischemic heart disease and other diseases of the circulatory system
CPT/HCPCS: 36415; 74300; 76705; 790; 80053; 80076; 81001; 83690; 84703; 85025; 87086; 88304; 99285; J0131; J0330; J0744; J1100; J1170; J1335; J2250; J2270; J2405; J2704; J2765; J3010; J3490

== ENCOUNTER 2017-03-10 14:49 | Emergency (ER) | payer MEDICAID ==
--- NOTE | 2017-03-10 15:44 | ER Document Report ---
ED ENT - General Chief Complaint: Sore Throat Stated Complaint: SORE THROAT Time Seen by Provider: 03/10/17 15:29 Mode of Arrival: Ambulatory Information source: Patient Notes: 41-year-old female presents to ED for sore throat started yesterday. States her throat feels swollen. States her son has strep throat about a month ago. TRAVEL OUTSIDE OF THE [place] IN LAST 30 DAYS: No - HPI Patient complains to provider of: Throat problem Onset: Yesterday Onset/Duration: Gradual Quality of pain: Other - Pressure Severity: Moderate Pain Level: 3 Location of pain: Throat Associated symptoms: Runny nose, Sinus drainage, Sore throat Similar symptoms previously: Yes Recently seen / treated by doctor: No - Related Data Allergies/Adverse Reactions: Penicillins Allergy (Verified 12/14/16 13:54) Hives Past Medical History - General Information source: Patient - Social History Smoking Status: Never Smoker Cigarette use (# per day): No Chew tobacco use (# tins/day): No Smoking Education Provided: No Frequency of alcohol use: None Drug Abuse: None Lives with: Family - kids only Family History: DM, Hypertension Patient has suicidal ideation: No Patient has homicidal ideation: No - Past Medical History Cardiac Medical History: Reports: Hx Hypercholesterolemia - borderline, Hx Hypertension - borderline Denies: Hx Coronary Artery Disease, Hx Heart Attack Pulmonary Medical History: Reports: Hx Asthma - with cold, Hx Bronchitis, Hx Pneumonia EENT Medical History: Reports: None Neurological Medical History: Reports: None Endocrine Medical History: Reports: None Renal/ Medical History: Reports: Hx Kidney Stones Malignancy Medical History: Reports: None GI Medical History: Reports: Hx Gastroesophageal Reflux Disease Musculoskeltal Medical History: Reports None Skin Medical History: Reports None Psychiatric Medical History: Reports: None Traumatic Medical History: Reports: None Infectious Medical History: Reports: None Past Surgical History: Reports: Hx Section, Hx Cholecystectomy, Hx Kidney (Renal Surgery), Hx Orthopedic Surgery - bilateral calfs for compartment syndrome/ l finger surgery, Other - Her surgery and bilateral tubal ligation - Immunizations Immunizations up to date: Yes Hx Diphtheria, Pertussis, Tetanus Vaccination: Yes Review of Systems - Review of Systems Constitutional: No symptoms reported EENT: Throat pain Cardiovascular: No symptoms reported Respiratory: No symptoms reported Gastrointestinal: No symptoms reported Genitourinary: No symptoms reported Female Genitourinary: No symptoms reported Musculoskeletal: No symptoms reported Skin: No symptoms reported Hematologic/Lymphatic: No symptoms reported Neurological/Psychological: No symptoms reported -: Yes All other systems reviewed and negative Physical Exam - Vital signs Vitals: Temp Pulse Resp BP Pulse Ox 98.5 F 87 20 141/79 H 100 03/10/17 15:05 03/10/17 15:05 03/10/17 15:05 03/10/17 15:05 03/10/17 15:05 Interpretation: Normal - General General appearance: Appears well, Alert - HEENT Head: Normocephalic, Atraumatic Eyes: Normal Pupils: PERRL Ears: Normal External canal: Normal Tympanic membrane: Normal Sinus: Normal Nasal: Purulent discharge, Swelling Mouth/Lips: Normal Mucous membranes: Normal Pharynx: Erythema, Post nasal drainage. No: Exudate, Tonsillar hypertrophy Neck: Anterior cervical chain - Respiratory Respiratory status: No respiratory distress Chest status: Nontender Breath sounds: Normal Chest palpation: Normal - Cardiovascular Rhythm: Regular Heart sounds: Normal auscultation Murmur: No - Abdominal Inspection: Normal Distension: No distension Bowel sounds: Normal Tenderness: Nontender Organomegaly: No organomegaly - Back Back: Normal, Nontender - Extremities General upper extremity: Normal inspection, Nontender, Normal color, Normal ROM , Normal temperature General lower extremity: Normal inspection, Nontender, Normal color, Normal ROM , Normal temperature, Normal weight bearing. No: Hamlet's sign - Neurological Neuro grossly intact: Yes Cognition: Normal Orientation: AAOx4 [place] Coma Scale Eye Opening: Spontaneous [place] Coma Scale Verbal: Oriented [place] Coma Scale Motor: Obeys Commands [place] Coma Scale Total: 15 Speech: Normal Motor strength normal: LUE, RUE, LLE, RLE Sensory: Normal - Psychological Associated symptoms: Normal affect, Normal mood - Skin Skin Temperature: Warm Skin Moisture: Dry Skin Color: Normal Course - Re-evaluation Re-evalutation: 03/10/17 17:53 Strep culture negative patient is to given instructions on upper respiratory infection. Her signs and symptoms are consistent with an upper respiratory infection with a viral sore throat. - Vital Signs Vital signs: Temp Pulse Resp BP Pulse Ox 98.6 F 95 20 135/76 H 99 03/10/17 16:42 03/10/17 16:42 03/10/17 16:42 03/10/17 16:42 03/10/17 16:42 Discharge - Discharge Clinical Impression: Sore throat (viral) URI (upper respiratory infection) Qualifiers: URI type: unspecified URI Qualified Code(s): J06.9 - Acute upper respiratory infection, unspecified Condition: Stable Disposition: HOME, SELF-CARE Instructions: Family Physicians / Practices, Use of Bbth-Bmb-Hpdnrzw Ibuprofen ([facility]) Additional Instructions: UPPER RESPIRATORY ILLNESS: You have a viral infection of the respiratory passages -- a "cold." This common infection causes nasal congestion, drainage, and often sore throat and cough. It is highly contagious. The disease usually lasts about 10 to 14 days. There is no "cure" for the viral infection -- it must run its course. If there is a complication, such as bacterial infection in the nose, sinuses, middle ear, or bronchial tubes, antibiotics may be required. The antibiotics won't affect the virus. Drink plenty of fluids. A humidifier may help. An expectorant medication or decongestant may make you more comfortable. Use acetaminophen or ibuprofen for fever or aches. See the doctor if fever persists over two days, if there is any significant worsening of your symptoms, or if you simply fail to improve as expected. SORE THROAT: Sore throats may be caused by viruses, bacteria, or fungi. Most are due to a virus, and must get better on their own. Bacterial sore throats, particularly those due to "strep," need treatment with antibiotics. If an antibiotic is prescribed, be sure to take the medication for a full 10 days. Failure to take the antibiotic can result in complications such as rheumatic fever. Sometimes, an injection of antibiotics is given instead of pills or liquid. This single "shot" is equal in effectiveness to the oral medication. To relieve symptoms, take acetaminophen for pain. Sip clear liquids frequently, or eat popsicles or ice chips. Anesthetic sprays or lozenges may help. Make sure the air in the room is not too dry. Avoid using decongestants or antihistamines. Call the doctor if there is no improvement in two days, or if you have difficulty breathing, increasing throat pain, high fever, rash, or frequent vomiting. COUGH-SUPPRESSANT & EXPECTORANT MEDICATION: You are to use a cough medication as needed for relief of symptoms. This medicine is a combination of an expectorant (to make the mucous thinner and more easily "coughed up") and a cough suppressant (to reduce the frequency of coughing). The cough-suppressant medicine is related to narcotics. You may experience mild nausea and sleepiness. Some patients who are very sensitive to narcotics may have stomach pain from this medicine. Taking the medicine with food reduces these side effects. Do not drive or work with machinery until you know how this medicine affects you. The expectorant should have no side effects. Iodine-containing expectorants (such as organidin) should not be taken by persons with active thyroid disease unless approved by your doctor. Call the doctor if you develop shortness of breath, hives, rash, itching, lightheadedness, or severe nausea and vomiting. Acetaminophen Acetaminophen may be taken for pain relief or fever control. It's much safer than aspirin, offering a wider range of "safe" dosages. It is safe during . Some brand names are Tylenol, Panadol, Datril, Anacin 3, Tempra, and Liquiprin. Acetaminophen can be repeated every four hours. The following are maximum recommended dosages: WEIGHT Dose Drops Elixir Chewable( 80mg) (LBS.) drprs=droppers tsp=teaspoon 6 40 mg .4 ml (1/2) 6-11 80 mg .8 ml (full) 1/2 tsp 1 tab 12-16 120 mg 1 1/2 drprs 3/4 tsp 1 1/2 tabs 17-23 160 mg 2 drprs 1 tsp 2 tabs 24-30 240 mg 3 drprs 1 1/2 tsp 3 tabs 30-35 320 mg 2 tsp 4 tabs 36-41 360 mg 2 1/4 tsp 4 1 /2 tabs 42-47 400 mg 2 1/2 tsp 5 tabs 48-53 480 mg 3 tsp 6 tabs 54-59 520 mg 3 1/4 tsp 6 1 /2 tabs 60-64 560 mg 3 1/2 tsp 7 tabs 65-70 600 mg 3 3/4 tsp 7 1 /2 tabs 71-76 640 mg 4 tsp 8 tabs 77-82 720 mg 4 1/2 tsp 9 tabs 83-88 800 mg 5 tsp 10 tabs >89 pounds or adults 650 mg to 900 mg Acetaminophen can be repeated every four hours. Maximum daily dose not to exceed 4000 mg. These maximum recommended dosages are slightly higher than the dosages written on the product container, but these dosages are very safe and well below the toxic dosage for acetaminophen. FOLLOW-UP CARE: If you have been referred to a physician for follow-up care, call the physician s office for an appointment as you were instructed or within the next two days. If you experience worsening or a significant change in your symptoms, notify the physician immediately or return to the Emergency Department at any time for re-evaluation. Forms: Elevated Blood Pressure, Return to Work
[2017-03-10 16:45] VITALS: BP 135/76
== END 2017-03-10 16:45 | disposition home or self-care (01) ==
LOC: ER 14:49
DX: J02.8 Acute pharyngitis due to other specified organisms (principal); B97.89 Other viral agents as the cause of diseases classified elsewhere; R09.82 Postnasal drip; J45.909 Unspecified asthma, uncomplicated; Z88.0 Allergy status to penicillin
CPT/HCPCS: 87070; 87880; 99283

== ENCOUNTER 2017-09-11 15:35 | Emergency (ER) | payer SELFPAY ==
[2017-09-11 17:51] LABS: APPEARANCE,URINE SLIGHTLY-CLOUDY; BILIRUBIN,URINE NEGATIVE (NEGATIVE); COLOR,URINE YELLOW; GLUCOSE, URINE NEGATIVE (NEGATIVE); KETONES,URINE NEGATIVE (NEGATIVE); LEUKOCYTE ESTERASE,URINE NEGATIVE (NEGATIVE); NITRITE,URINE NEGATIVE (NEGATIVE); PROTEIN,URINE NEGATIVE (NEGATIVE); URINE SPECIFIC GRAVITY 1.023; UROBILINOGEN,URINE NEGATIVE mg/dL (<2.0)
[2017-09-11 18:31] VITALS: BP 154/79
--- NOTE | 2017-09-11 18:31 | ER Document Report ---
ED General - General Chief Complaint: Urinary Problem Stated Complaint: URINARY PROBLEM Time Seen by Provider: 09/11/17 16:50 Mode of Arrival: Ambulatory Information source: Patient Notes: Patient states she has some pelvic pressure and a lot of irritation with urination. She states she does not have any type of vaginal discharge or any evidence of irritation on exam when she examines herself. She states she is not socially active and is not concerned about 60 transmitted disease. Her periods have been normal and she has had no bleeding. She states symptoms are worse with urination better without. She states that there is no radiation symptoms. They are mild to moderate and intermittent. TRAVEL OUTSIDE OF THE [place] IN LAST 30 DAYS: No - Related Data Allergies/Adverse Reactions: Penicillins Allergy (Verified 09/11/17 15:36) Hives Past Medical History - General Information source: Patient Last Menstrual Period: 09/04/2017 - Social History Smoking Status: Unknown if Ever Smoked Frequency of alcohol use: Occasional Drug Abuse: None Family History: DM, Hypertension Patient has suicidal ideation: No Patient has homicidal ideation: No - Past Medical History Cardiac Medical History: Reports: Hx Hypercholesterolemia - borderline, Hx Hypertension - borderline Denies: Hx Coronary Artery Disease, Hx Heart Attack Pulmonary Medical History: Reports: Hx Asthma - with cold, Hx Bronchitis, Hx Pneumonia Renal/ Medical History: Reports: Hx Kidney Stones. Denies: Hx Peritoneal Dialysis GI Medical History: Reports: Hx Gastroesophageal Reflux Disease Musculoskeltal Medical History: Denies Hx Arthritis Psychiatric Medical History: Denies: Hx Depression Past Surgical History: Reports: Hx Section, Hx Cholecystectomy, Hx Kidney (Renal Surgery), Hx Orthopedic Surgery - bilateral calfs for compartment syndrome/ l finger surgery, Hx Pancreatic Surgery, Other - Her surgery and bilateral tubal ligation. Denies: Hx Hysterectomy, Hx Pacemaker - Immunizations Immunizations up to date: Yes Hx Diphtheria, Pertussis, Tetanus Vaccination: Yes Review of Systems - Review of Systems Constitutional: denies: Chills, Fever Cardiovascular: denies: Chest pain, Palpitations Respiratory: denies: Cough, Short of breath -: Yes All other systems reviewed and negative Physical Exam - Vital signs Vitals: Temp Pulse Resp BP Pulse Ox 98.6 F 89 16 150/74 H 97 09/11/17 15:43 09/11/17 15:43 09/11/17 15:43 09/11/17 15:43 09/11/17 15:43 Interpretation: Normal - General General appearance: Appears well, Alert - HEENT Head: Normocephalic, Atraumatic Eyes: Normal Pupils: PERRL - Respiratory Respiratory status: No respiratory distress Chest status: Nontender Breath sounds: Normal Chest palpation: Normal - Cardiovascular Rhythm: Regular Heart sounds: Normal auscultation Murmur: No - Abdominal Inspection: Normal Distension: No distension Bowel sounds: Normal Tenderness: Nontender Organomegaly: No organomegaly - Back Back: Normal, Nontender - Extremities General upper extremity: Normal inspection, Nontender, Normal color, Normal ROM , Normal temperature General lower extremity: Normal inspection, Nontender, Normal color, Normal ROM , Normal temperature, Normal weight bearing. No: Hamlet's sign - Neurological Neuro grossly intact: Yes Cognition: Normal Orientation: AAOx4 [place] Coma Scale Eye Opening: Spontaneous [place] Coma Scale Verbal: Oriented [place] Coma Scale Motor: Obeys Commands [place] Coma Scale Total: 15 Speech: Normal Motor strength normal: LUE, RUE, LLE, RLE Sensory: Normal - Psychological Associated symptoms: Normal affect, Normal mood - Skin Skin Temperature: Warm Skin Moisture: Dry Skin Color: Normal Course - Re-evaluation Re-evalutation: 09/11/17 18:29 Patient's UA is negative. I discussed with patient that her symptoms are consistent with bacterial vaginosis and that we could try empirically treating for that. I told her if it does not work she could follow-up with her primary care physician or return here to the emergency department. I also told her the other option would be to wait for a bed to open my pelvic exam to be performed. Patient declined the option of waiting for a pelvic exam. - Vital Signs Vital signs: Temp Pulse Resp BP Pulse Ox 98.2 F 71 16 106/90 H 95 09/11/17 16:53 09/11/17 16:53 09/11/17 16:53 09/11/17 16:53 09/11/17 16:53 Discharge - Discharge Clinical Impression: Bacterial vaginosis Condition: Stable Disposition: HOME, SELF-CARE Instructions: Vaginosis, Bacterial ([facility]) Prescriptions: Metronidazole [Flagyl 500 mg Tablet] 500 mg PO BID 7 Days #14 tablet Forms: Return to Work
== END 2017-09-11 18:31 | disposition home or self-care (01) ==
LOC: ER 15:35
DX: N76.0 Acute vaginitis (principal); B96.89 Other specified bacterial agents as the cause of diseases classified elsewhere; J45.909 Unspecified asthma, uncomplicated; Z88.0 Allergy status to penicillin
CPT/HCPCS: 81001; 81025; 99283

== ENCOUNTER 2017-11-29 17:25 | Emergency (ER) | payer SELFPAY ==
--- NOTE | 2017-11-29 17:52 | ER Document Report ---
ED Medical Screen (RME) - General Chief Complaint: Palpitations Stated Complaint: DIZZY Time Seen by Provider: 11/29/17 17:48 Mode of Arrival: Ambulatory Information source: Patient TRAVEL OUTSIDE OF THE [place] IN LAST 30 DAYS: No - HPI Notes: 11/29/17 17:51 Dizzy, heart racing, "tunnel vision" on and off last week. NO PMHX. No PMD. NO ETOH/tobacco. Mom has HTN and high cholesterol. - Related Data Allergies/Adverse Reactions: Penicillins Allergy (Verified 11/29/17 17:32) Hives Past Medical History - Past Medical History Cardiac Medical History: Reports: Hx Hypercholesterolemia - borderline, Hx Hypertension - borderline Denies: Hx Coronary Artery Disease, Hx Heart Attack Pulmonary Medical History: Reports: Hx Asthma - with cold, Hx Bronchitis, Hx Pneumonia Renal/ Medical History: Reports: Hx Kidney Stones. Denies: Hx Peritoneal Dialysis GI Medical History: Reports: Hx Gastroesophageal Reflux Disease Musculoskeltal Medical History: Denies Hx Arthritis Psychiatric Medical History: Denies: Hx Depression Past Surgical History: Reports: Hx Section, Hx Cholecystectomy, Hx Kidney (Renal Surgery), Hx Orthopedic Surgery - bilateral calfs for compartment syndrome/ l finger surgery, Hx Pancreatic Surgery, Other - Her surgery and bilateral tubal ligation. Denies: Hx Hysterectomy, Hx Pacemaker - Immunizations Immunizations up to date: Yes Hx Diphtheria, Pertussis, Tetanus Vaccination: Yes Physical Exam - Vital signs Vitals: Temp Pulse Resp BP Pulse Ox 98.0 F 79 16 145/75 H 98 11/29/17 17:41 11/29/17 17:41 11/29/17 17:41 11/29/17 17:41 11/29/17 17:41 Course - Vital Signs Vital signs: Temp Pulse Resp BP Pulse Ox 98.0 F 79 16 145/75 H 98 11/29/17 17:41 11/29/17 17:41 11/29/17 17:41 11/29/17 17:41 11/29/17 17:41
--- NOTE | 2017-11-29 18:13 | RADIOLOGY REPORT (SQ) ---
EXAM DESCRIPTION: CHEST 2 VIEWS COMPLETED DATE/TIME: 11/29/2017 6:06 pm REASON FOR STUDY: chest palpitations COMPARISON: 09/10/2016 EXAM PARAMETERS: NUMBER OF VIEWS: two views TECHNIQUE: Digital Frontal and Lateral radiographic views of the chest acquired. RADIATION DOSE: NA LIMITATIONS: none FINDINGS: LUNGS AND PLEURA: No opacities, masses or pneumothorax. No pleural effusion. MEDIASTINUM AND HILAR STRUCTURES: No masses or contour abnormalities. HEART AND VASCULAR STRUCTURES: Heart normal size. No evidence for failure. BONES: No acute findings. HARDWARE: None in the chest. OTHER: No other significant finding. IMPRESSION: NO ACUTE RADIOGRAPHIC FINDING IN THE CHEST. TECHNICAL DOCUMENTATION: JOB ID: [id number] [employer]- All Rights Reserved Reading location - IP/workstation name: [email or web address]
[2017-11-29 18:33] LABS: ABSOLUTE BASOPHILS # (AUTO) 0.1 10^3/uL (0.0-0.2); ABSOLUTE EOSINOPHILS # (AUTO) 0.2 10^3/uL (0.0-0.6); ABSOLUTE LYMPHOCYTES (AUTO) 2.8 10^3/uL (0.5-4.7); ABSOLUTE MONOCYTES (AUTO) 0.4 10^3/uL (0.1-1.4); ABSOLUTE NEUT (AUTO) 5.2 10^3/uL (1.7-8.2); EOSINOPHILS % (AUTO) 1.8 % (0-6); HEMATOCRIT 38.5 % (36.0-47.0); HEMOGLOBIN 13.1 g/dL (12.0-15.5); LYMPHOCYTES % (AUTO) 32.5 % (13-45); MEAN CORPUSCULAR HEMOGLOBIN 29.9 pg (27.0-33.4); MEAN CORPUSCULAR HGB CONC 34.1 g/dL (32.0-36.0); MEAN CORPUSCULAR VOLUME 88 fl (80-97); MONOCYTES % (AUTO) 4.7 % (3-13); PLATELET COUNT 388 10^3/uL (150-450); RED BLOOD COUNT 4.38 10^6/uL (3.72-5.28); RED CELL DISTRIBUTION WIDTH 14.3 % (11.5-14.0); TOTAL CELLS COUNTED % (AUTO) 100 %; WHITE BLOOD COUNT 8.7 10^3/uL (4.0-10.5)
[2017-11-29 18:35] LABS: APPEARANCE,URINE SLIGHTLY-CLOUDY; BILIRUBIN,URINE NEGATIVE (NEGATIVE); COLOR,URINE YELLOW; GLUCOSE, URINE NEGATIVE (NEGATIVE); KETONES,URINE NEGATIVE (NEGATIVE); LEUKOCYTE ESTERASE,URINE TRACE (NEGATIVE); NITRITE,URINE NEGATIVE (NEGATIVE); PROTEIN,URINE NEGATIVE (NEGATIVE); UROBILINOGEN,URINE NEGATIVE mg/dL (<2.0)
[2017-11-29 18:52] LABS: ANION GAP 12 (5-19); BLOOD UREA NITROGEN 12 mg/dL (7-20); CALCIUM 9.8 mg/dL (8.4-10.2); CARBON DIOXIDE 30 mmol/L (22-30); CHLORIDE 104 mmol/L (98-107); GLUCOSE 87 mg/dL (75-110); POTASSIUM 4.2 mmol/L (3.6-5.0); SODIUM 146.1 mmol/L (137-145)
--- NOTE | 2017-11-29 19:00 | ER Document Report ---
ED General - General Chief Complaint: Palpitations Stated Complaint: DIZZY Time Seen by Provider: 11/29/17 17:48 Mode of Arrival: Ambulatory Notes: Patient is a 42-year-old female without past medical history who presents with complaints of intermittent palpitations as well as intermittent episodes in which she becomes lightheaded and feels like she might pass out. Patient reports the symptoms of lightheadedness do not coincide with episodes of palpitations. She notes that the episodes of lightheadedness are what brought her to the emergency department. She describes it as intermittent episodes in which she feels like she is about to pass out and this almost exclusively occurs at work. She is uncertain what triggers the symptoms and they typically resolve if she sits down for a period of time. She has never passed out with these episodes. Denies any associated chest pain, shortness of breath, nausea or vomiting. She has no history of cardiac pathology and no history of a DVT or pulmonary embolus. She has not seen her primary care doctor regarding today' s concerns. Nothing is new or different today that prompted a visit to the emergency department. TRAVEL OUTSIDE OF THE [place] IN LAST 30 DAYS: No - Related Data Allergies/Adverse Reactions: Penicillins Allergy (Verified 11/29/17 17:32) Hives Past Medical History - General Information source: Patient - Social History Smoking Status: Never Smoker Chew tobacco use (# tins/day): No Frequency of alcohol use: None Drug Abuse: None Lives with: Spouse/Significant other Family History: DM, Hypertension Patient has suicidal ideation: No Patient has homicidal ideation: No - Past Medical History Cardiac Medical History: Reports: Hx Hypercholesterolemia - borderline, Hx Hypertension - borderline Denies: Hx Coronary Artery Disease, Hx Heart Attack Pulmonary Medical History: Reports: Hx Asthma - with cold, Hx Bronchitis, Hx Pneumonia Renal/ Medical History: Reports: Hx Kidney Stones. Denies: Hx Peritoneal Dialysis GI Medical History: Reports: Hx Gastroesophageal Reflux Disease Musculoskeltal Medical History: Denies Hx Arthritis Psychiatric Medical History: Denies: Hx Depression Past Surgical History: Reports: Hx Section, Hx Cholecystectomy, Hx Kidney (Renal Surgery), Hx Orthopedic Surgery - bilateral calfs for compartment syndrome/ l finger surgery, Hx Pancreatic Surgery, Other - Her surgery and bilateral tubal ligation. Denies: Hx Hysterectomy, Hx Pacemaker - Immunizations Immunizations up to date: Yes Hx Diphtheria, Pertussis, Tetanus Vaccination: Yes Review of Systems - Review of Systems Notes: Constitutional: Negative for fever. HENT: Negative for sore throat. Eyes: Negative for visual changes. Cardiovascular: Negative for chest pain. Positive for palpitations Respiratory: Negative for shortness of breath. Gastrointestinal: Negative for abdominal pain, vomiting or diarrhea. Genitourinary: Negative for dysuria. Musculoskeletal: Negative for back pain. Skin: Negative for rash. Neurological: Negative for headaches, weakness or numbness. 10 point ROS negative except as marked above and in HPI. Physical Exam - Vital signs Vitals: Temp Pulse Resp BP Pulse Ox 98.0 F 79 16 145/75 H 98 11/29/17 17:41 11/29/17 17:41 11/29/17 17:41 11/29/17 17:41 11/29/17 17:41 Interpretation: Hypertensive Notes: PHYSICAL EXAMINATION: GENERAL: Well-appearing, well-nourished and in no acute distress. HEAD: Atraumatic, normocephalic. EYES: Pupils equal round and reactive to light, extraocular movements intact, sclera anicteric, conjunctiva are normal. ENT: nares patent, oropharynx clear without exudates. Moist mucous membranes. NECK: Normal range of motion, supple without lymphadenopathy LUNGS: Breath sounds clear to auscultation bilaterally and equal. No wheezes rales or rhonchi. HEART: Regular rate and rhythm without murmurs ABDOMEN: Soft, nontender, normoactive bowel sounds. No guarding, no rebound. No masses appreciated. EXTREMITIES: Normal range of motion, no pitting or edema. No cyanosis. NEUROLOGICAL: No focal neurological deficits. Moves all extremities spontaneously and on command. PSYCH: Normal mood, normal affect. SKIN: Warm, Dry, normal turgor, no rashes or lesions noted. Course - Re-evaluation Re-evalutation: 11/29/17 18:55 Patient presents with palpitations and intermittent episodes of near syncope but is in no acute distress. Patient is clear to state that she has no history of episodes of palpitations at the same time that she has had near syncope. She states these are 2 distinct issues. Patient normotensive, alert, without focal neurologic deficits at time of arrival. Denies presyncopal episodes occur during exertion. Patient asymptomatic at time of arrival. EKG is without evidence of HCOM, right heart strain, ST changes to suggest ischemia, prolong QTc, delta wave, epsilon wave, or Brugada syndrome. Patient denies any family history of sudden cardiac , personal history of of structural heart disease. Patient denies any symptoms to suggest an acute PE, DE, TAD, SAH, seizure, or acute GI bleed as the etiology of their syncope today. On exam, no murmurs to suggest critical aortic stenosis as possible etiology. Based on overall clinical history, exam findings, vitals, and patients appearance, I feel it is safe for patient to be discharged home at this time with close outpatient follow-up and strict return precautions. Patient is in agreement with this plan, has verbalized indications for return to ED, and questions have been answered. - Vital Signs Vital signs: Temp Pulse Resp BP Pulse Ox 98.0 F 79 15 103/55 L 100 11/29/17 17:41 11/29/17 17:41 11/29/17 20:01 11/29/17 20:01 11/29/17 20:01 - Laboratory Result Diagrams: 11/29/17 18:14 11/29/17 18:14 Laboratory results interpreted by me: 11/29/17 11/29/17 11/29/17 18:14 18:14 18:14 RDW 14.3 H Sodium 146.1 H Ur Leukocyte Esterase TRACE H Urine Ascorbic Acid 40 H - Diagnostic Test Radiology reviewed: Image reviewed, Reports reviewed Radiology results interpreted by me: 11/29/17 18:57 Chest x-ray: No acute infiltrate or pneumothorax - EKG Interpretation by Me Additional EKG results interpreted by me: 11/29/17 18:57 Sinus rhythm. Rate 78. No ST elevations or depressions. QTC is 392. Discharge - Discharge Clinical Impression: Palpitations, Near syncope Condition: Good Disposition: HOME, SELF-CARE Additional Instructions: Please follow-up with your primary care doctor or a production machinist regarding your palpitations and intermittent episodes of lightheadedness. Return if you develop chest pain, shortness of breath, pass out, or have any other symptoms that are worrisome to you. Please be sure to drink plenty of fluid while at work as your lightheadedness and near syncope episodes may be related to dehydration. Referrals: ANJELICA PARDO MD [ACTIVE STAFF] - Follow up in 3-5 days
[2017-11-29 20:26] VITALS: BP 103/55
--- NOTE | 2017-11-30 08:58 | EKG REPORT ---
SEVERITY:- NORMAL ECG - SINUS RHYTHM : Confirmed by: Christian Burton MD 30-Nov-2017 08:57:38
== END 2017-11-29 20:27 | disposition home or self-care (01) ==
LOC: ER 17:25
DX: R00.2 Palpitations (principal); R55 Syncope and collapse; J45.909 Unspecified asthma, uncomplicated; Z88.0 Allergy status to penicillin
CPT/HCPCS: 36415; 71046; 80048; 81001; 81025; 84443; 85025; 93005; 93010; 99285

== ENCOUNTER 2017-12-08 16:18 | Emergency (ER) | payer SELFPAY ==
[2017-12-08] MEDS ORDERED: GUAIFENESIN 600 MG TABLET.SA PO ONE (17:11)
[2017-12-08] MEDS ORDERED: ALBUTEROL SULFATE HFA (90 MCG/PUFF) 8 GM MDI (1 MDI/ER DISP) IH ONE (17:15)
--- NOTE | 2017-12-08 17:32 | RADIOLOGY REPORT (SQ) ---
EXAM DESCRIPTION: CHEST 2 VIEWS COMPLETED DATE/TIME: 12/08/2017 5:21 pm REASON FOR STUDY: cough, CP COMPARISON: 11/29/2017 EXAM PARAMETERS: NUMBER OF VIEWS: two views TECHNIQUE: Digital Frontal and Lateral radiographic views of the chest acquired. RADIATION DOSE: NA LIMITATIONS: none FINDINGS: LUNGS AND PLEURA: No opacities, masses or pneumothorax. No pleural effusion. MEDIASTINUM AND HILAR STRUCTURES: No masses or contour abnormalities. HEART AND VASCULAR STRUCTURES: Heart normal size. No evidence for failure. BONES: No acute findings. HARDWARE: None in the chest. OTHER: No other significant finding. IMPRESSION: NO ACUTE RADIOGRAPHIC FINDING IN THE CHEST. TECHNICAL DOCUMENTATION: JOB ID: [id number] [employer]- All Rights Reserved Reading location - IP/workstation name: [email or web address]
--- NOTE | 2017-12-08 18:30 | ER Document Report ---
ED General - General Chief Complaint: Cough Stated Complaint: COUGH Time Seen by Provider: 12/08/17 17:03 Mode of Arrival: Ambulatory Information source: Patient TRAVEL OUTSIDE OF THE [place] IN LAST 30 DAYS: No - HPI Notes: Patient is a 42-year-old female presents to the emergency department with report of a history of reactive airways disease and asthma that dates back to when she was a child, presents now with a 3 day history of cough and congestion bringing up minimal amount of yellowish phlegm. The patient reports mild chest discomfort just associated with the cough. She denies any radiation of the pain or nausea or vomiting or constipation or diarrhea or dysuria. The patient previously was on metered-dose inhalers but is currently out. - Related Data Allergies/Adverse Reactions: Penicillins Allergy (Verified 12/08/17 16:20) Hives Past Medical History - General Information source: Patient - Social History Smoking Status: Unknown if Ever Smoked Frequency of alcohol use: None Drug Abuse: None Lives with: Family Family History: DM, Hypertension Patient has suicidal ideation: No Patient has homicidal ideation: No - Past Medical History Cardiac Medical History: Reports: Hx Hypercholesterolemia - borderline, Hx Hypertension - borderline Denies: Hx Coronary Artery Disease, Hx Heart Attack Pulmonary Medical History: Reports: Hx Asthma - with cold, Hx Bronchitis, Hx Pneumonia Renal/ Medical History: Reports: Hx Kidney Stones. Denies: Hx Peritoneal Dialysis GI Medical History: Reports: Hx Gastroesophageal Reflux Disease Musculoskeltal Medical History: Denies Hx Arthritis Psychiatric Medical History: Denies: Hx Depression Past Surgical History: Reports: Hx Section, Hx Cholecystectomy, Hx Kidney (Renal Surgery), Hx Orthopedic Surgery - bilateral calfs for compartment syndrome/ l finger surgery, Hx Pancreatic Surgery, Other - Her surgery and bilateral tubal ligation. Denies: Hx Hysterectomy, Hx Pacemaker - Immunizations Immunizations up to date: Yes Hx Diphtheria, Pertussis, Tetanus Vaccination: Yes Review of Systems - Review of Systems Notes: REVIEW OF SYSTEMS: CONSTITUTIONAL : Denies fever, chills, or sweats. EENT: Denies eye, ear, throat, or mouth pain or symptoms. Denies throat, tongue, or mouth swelling or difficulty swallowing. CARDIOVASCULAR: Denies palpitations or racing or irregular heart beat. Denies ankle edema. RESPIRATORY: reports congestion and wheezing. GASTROINTESTINAL: Denies abdominal pain or distention. Denies nausea, vomiting , or diarrhea. Denies blood in vomitus, stools, or per rectum. Denies black, tarry stools. Denies constipation. GENITOURINARY: Denies difficulty urinating, painful urination, burning, frequency, blood in urine, or discharge. FEMALE GENITOURINARY: Denies vaginal bleeding, heavy or abnormal periods, irregular periods. Denies vaginal discharge or odor. MUSCULOSKELETAL: Denies back or neck pain or stiffness. Denies joint pain or swelling. SKIN: Denies rash, lesions or sores. HEMATOLOGIC : Denies easy bruising or bleeding. LYMPHATIC: Denies swollen, enlarged glands. NEUROLOGICAL: Denies confusion or altered mental status. Denies passing out or loss of consciousness. Denies dizziness or lightheadedness. Denies headache. Denies weakness or paralysis or loss of use of either side. Denies problems with gait or speech. Denies sensory loss, numbness, or tingling. Denies seizures. PSYCHIATRIC: Denies anxiety or stress. Denies depression, suicidal ideation, or homicidal ideation. ALL OTHER SYSTEMS REVIEWED AND NEGATIVE. Dictation was performed using [employer] voice recognition software Physical Exam - Vital signs Vitals: Temp Pulse Resp BP Pulse Ox 98.0 F 90 18 138/67 H 99 12/08/17 16:22 12/08/17 16:22 12/08/17 16:22 12/08/17 16:22 12/08/17 16:22 - Notes Notes: PHYSICAL EXAMINATION: GENERAL: Well-appearing, well-nourished and in no acute distress. HEAD: Atraumatic, normocephalic. EYES: Pupils equal round and reactive to light, extraocular movements intact, conjunctiva are normal. ENT: Nares patent, oropharynx clear without exudates. Moist mucous membranes. NECK: Normal range of motion, supple without lymphadenopathy LUNGS: Coarse breath sounds with scant expiratory wheeze. HEART: Regular rate and rhythm without murmurs. Mild tenderness on palpation to the chest. No crepitance or bony deformity. ABDOMEN: Soft, nontender, nondistended abdomen. No guarding, no rebound. No masses appreciated. Female : deferred Musculoskeletal: Normal range of motion, no pitting or edema. No cyanosis. Negative Homans. No palpable cord. NEUROLOGICAL: Cranial nerves grossly intact. Normal speech, normal gait. Normal sensory, motor exams PSYCH: Normal mood, normal affect. SKIN: Warm, Dry, normal turgor, no rashes or lesions noted. Course - Re-evaluation Re-evalutation: 12/08/17 18:30 Patient was given albuterol inhaler and Mucinex. On repeat exam she had no wheezing and denied any pain. Patient has no history of cardiac disease and gradual onset and worsening of her reproducible chest discomfort associated with the cough is more indicative of a pleurisy/irritation. There is no evidence for pneumonia or congestive heart failure. No clinical suggestion for pulmonary embolus. No hypoxia. - Vital Signs Vital signs: Temp Pulse Resp BP Pulse Ox 98.0 F 90 18 138/67 H 99 12/08/17 16:22 12/08/17 16:22 12/08/17 16:22 12/08/17 16:22 12/08/17 16:22 Discharge - Discharge Clinical Impression: Bronchitis Asthma with acute exacerbation Qualifiers: Asthma severity: mild Asthma persistence: intermittent Qualified Code(s): J45.21 - Mild intermittent asthma with (acute) exacerbation Condition: Stable Disposition: HOME, SELF-CARE Instructions: [facility] ([facility]), Bronchitis ([facility]), Family Physicians / Practices Additional Instructions: Drink plenty of fluids. Take for any fever. Prescriptions: Guaifenesin [Mucinex] 600 mg PO Q12HP PRN #20 tab.er.12h PRN Reason: Albuterol Sulfate [Proair HFA Inhalation Aerosol 8.5 gm MDI] 2 puff IH Q4H PRN # 1 mdi PRN Reason: Azithromycin [Zithromax 250 mg Tablet] 250 mg PO ASDIR PRN #6 tablet PRN Reason: Prednisone [Deltasone 10 mg Tablet] 10 mg PO ASDIR PRN #21 tablet PRN Reason: Forms: Return to Work
[2017-12-08 18:58] VITALS: BP 134/86
== END 2017-12-08 18:56 | disposition home or self-care (01) ==
LOC: ER 16:18
DX: J45.21 Mild intermittent asthma with (acute) exacerbation (principal); J40 Bronchitis, not specified as acute or chronic; R05 Cough; R09.89 Other specified symptoms and signs involving the circulatory and respiratory systems; I10 Essential (primary) hypertension
CPT/HCPCS: 99283; 71046; J3490

== ENCOUNTER 2017-12-11 07:26 | Emergency (ER) | payer SELFPAY ==
[2017-12-11 07:33] VITALS: BP 144/76
--- NOTE | 2017-12-11 07:48 | ER Document Report ---
ED General - General Chief Complaint: Congestion Stated Complaint: COUGH,COLD SYMPTOMS Time Seen by Provider: 12/11/17 07:47 Mode of Arrival: Ambulatory Information source: Patient TRAVEL OUTSIDE OF THE [place] IN LAST 30 DAYS: No - HPI Notes: 42-year-old female presents for reevaluation of her coughing 1 week. Patient was seen on December 08, approximately 3 days ago where she was diagnosed with bronchitis, chest x-ray was negative for any acute findings. He was discharged home with a Z-Jorge, tapering dose of prednisone, Ventolin inhaler and Mucinex. Patient states her cough has been the same. Patient reports that cough is dry. Patient is a non-smoker. Patient has mild asthma, states the prednisone is been helping. Denies fevers, chills, chest pain,palpitations, shortness of breath, dyspnea, nausea, vomiting, diarrhea, abdominal pain, hematuria,blurred vision, double vision, loss of vision, speech changes, LH, dizziness, syncope, headaches, wheezing, ST, URI, neck pain, weakness, bowel or bladder dysfunction , saddle anesthesia, numbness or tingling in bilateral upper or lower extremities equally, muscle paralysis, weakness in bilateral upper or lower extremities equally or rash. Denies IV drug use. - Related Data Allergies/Adverse Reactions: Penicillins Allergy (Verified 12/08/17 16:20) Hives Past Medical History - General Information source: Patient - Social History Smoking Status: Never Smoker Family History: Reviewed & Not Pertinent, DM, Hypertension - Past Medical History Cardiac Medical History: Reports: Hx Hypercholesterolemia - borderline, Hx Hypertension - borderline Denies: Hx Coronary Artery Disease, Hx Heart Attack Pulmonary Medical History: Reports: Hx Asthma - with cold, Hx Bronchitis, Hx Pneumonia Renal/ Medical History: Reports: Hx Kidney Stones. Denies: Hx Peritoneal Dialysis GI Medical History: Reports: Hx Gastroesophageal Reflux Disease Musculoskeltal Medical History: Denies Hx Arthritis Psychiatric Medical History: Denies: Hx Depression Past Surgical History: Reports: Hx Section, Hx Cholecystectomy, Hx Kidney (Renal Surgery), Hx Orthopedic Surgery - bilateral calfs for compartment syndrome/ l finger surgery, Hx Pancreatic Surgery, Other - Her surgery and bilateral tubal ligation. Denies: Hx Hysterectomy, Hx Pacemaker - Immunizations Immunizations up to date: Yes Hx Diphtheria, Pertussis, Tetanus Vaccination: Yes Review of Systems - Review of Systems Constitutional: No symptoms reported EENT: See HPI Cardiovascular: No symptoms reported Respiratory: See HPI Gastrointestinal: No symptoms reported Genitourinary: No symptoms reported Female Genitourinary: No symptoms reported Musculoskeletal: No symptoms reported Skin: No symptoms reported Hematologic/Lymphatic: No symptoms reported Neurological/Psychological: No symptoms reported Physical Exam - Vital signs Vitals: Temp Pulse Resp BP Pulse Ox 98.8 F 94 16 144/76 H 97 12/11/17 07:31 12/11/17 07:31 12/11/17 07:31 12/11/17 07:31 12/11/17 07:31 - Notes Notes: PHYSICAL EXAMINATION: GENERAL: Well-appearing, well-nourished and in no acute distress. HEAD: Atraumatic, normocephalic. EYES: Pupils equal round and reactive to light, extraocular movements intact, conjunctiva are normal. ENT: TM intact with bilateral serous effusion, no erythema. Nares boggy bilaterally, oropharynx with erythema without exudates. Moist mucous membranes. NECK: Normal range of motion, supple without lymphadenopathy LUNGS: Breath sounds clear to auscultation bilaterally and equal. No wheezes rales or rhonchi. HEART: Regular rate and rhythm without murmurs ABDOMEN: Soft, nontender, nondistended abdomen. No guarding, no rebound. No masses appreciated. Female : deferred Musculoskeletal: Normal range of motion, no pitting or edema. No cyanosis. NEUROLOGICAL: Cranial nerves grossly intact. Normal speech, normal gait. Normal sensory, motor exams PSYCH: Normal mood, normal affect. SKIN: Warm, Dry, normal turgor, no rashes or lesions noted. Course - Re-evaluation Re-evalutation: 12/11/17 08:05 42-year-old female is afebrile, vitals stable and in no distress warrants reevaluation of her cough. This is a postnasal drip cough, patient not taking any form of decongestant or antihistamine. No clinical evidence of pneumonia, CHF or PE on clinical review. Advised patient to start Flonase, use Tessalon Perles. Ventolin inhaler increasing for coughing fits, to sleep in an elevated position, showers and baths, his [id number]. Follow-up with primary care provider within 3 days. I have reevaluated this patient multiple times and no significant life threatening changes, no signs of toxicity, sepsis or peritonitis are noted. The patient and I have discussed the diagnosis and risks , and we agree with discharging home and close follow-up. We also discussed returning to the Emergency Department immediately if new or worsening symptoms occur with the understanding that symptoms and presentations can change. At this time will discharge with return precautions and follow-up recommendations. Verbal discharge instructions given a the bedside and opportunity for questions given. We have discussed the symptoms which are most concerning (e.g. , saddle anesthesia, urinary or bowel incontinence or retention, changing or worsening pain) that necessitate immediate return. Medication warnings reviewed. Patient is in agreement with this plan and has verbalized understanding of return precautions and the need for primary care follow-up in the next 24-72 hours. Patient verbalized understanding of plan of care and agree with plan of care. - Vital Signs Vital signs: Temp Pulse Resp BP Pulse Ox 98.8 F 94 16 144/76 H 97 12/11/17 07:31 12/11/17 07:31 12/11/17 07:31 12/11/17 07:31 12/11/17 07:31 Discharge - Discharge Clinical Impression: PND (post-nasal drip), Acute viral bronchitis Allergic rhinitis Qualifiers: Allergic rhinitis trigger: pollen Allergic rhinitis seasonality: seasonal Qualified Code(s): J30.1 - Allergic rhinitis due to pollen Clinical Impression: (Ruled Out): Allergic rhinitis caused by feathers Condition: Good Disposition: HOME, SELF-CARE Instructions: Non-Sedating Prescription Antihistamine ([facility]), OTC Antihistamines ([facility]), Upper Respiratory Illness ([facility]), Viral Syndrome ([facility]) Additional Instructions: Cough Suppressant/Expectorant Medication You are to use a cough medication as needed for relief of symptoms. This medicine is a combination of an expectorant (to make the mucous thinner and more easily "coughed up") and a cough suppressant (to reduce the frequency of coughing). The cough-suppressant medicine is related to narcotics. You may experience mild nausea and sleepiness. Some patients who are very sensitive to narcotics may have stomach pain from this medicine. Taking the medicine with food reduces these side effects. Do not drive or work with machinery until you know how this medicine affects you. The expectorant should have no side effects. Iodine-containing expectorants (such as organidin) should not be taken by persons with active thyroid disease unless approved by your doctor. Call the doctor if you develop shortness of breath, hives, rash, itching, lightheadedness, or severe nausea and vomiting. Your symptoms are likely due to a viral infection. Your cough may last for up to 4 weeks. Carry Ventolin inhaler and your person, use when you do get into coughing episodes. Suck on cough drops and jelly ranchers to suppress cough. Take Tessalon Perles as needed. Use Flonase daily. Take a daily antihistamine for seasonal allergies. Please return to the emergency department immediately if you become confused, have persistent vomiting, pass out, have severe headache , or have any other symptoms that are worrisome to you. Follow-up with your primary care doctor in the next several days. Return immediately for any new or worsening symptoms. Follow up with primary care provider, call tomorrow to make followup appointment. Prescriptions: Benzonatate 100 mg PO TIDP PRN #20 capsule PRN Reason: Fluticasone Propionate [Flonase Nasal Homer 50 Mcg/Homer 16 gm] 1 spray NASL Q12 #1 bottle Referrals: EDUAR DAVEY MD [[facility]] - Follow up as needed
== END 2017-12-11 08:25 | disposition home or self-care (01) ==
LOC: ER 07:26
DX: J45.909 Unspecified asthma, uncomplicated (principal); R09.82 Postnasal drip; R05 Cough; I10 Essential (primary) hypertension
CPT/HCPCS: 99283

== ENCOUNTER 2018-02-27 07:50 | Emergency (ER) | payer SELFPAY ==
[2018-02-27] MEDS ORDERED: KETOROLAC TROMETHAMINE 60 MG/2 ML SDV IM ONE (09:15)
[2018-02-27] MEDS ORDERED: DEXAMETHASONE SOD PHOS INJ 10 MG/1 ML VIAL IM ONE (09:15)
[2018-02-27] MEDS ORDERED: LIDOCAINE 5% (700 MG) TRANSDERMAL ADH..PATCH TP ONE (09:16)
--- NOTE | 2018-02-27 09:46 | RADIOLOGY REPORT (SQ) ---
EXAM DESCRIPTION: L SPINE WHOLE COMPLETED DATE/TIME: 02/27/2018 9:28 am REASON FOR STUDY: pain radiating across hip down leg COMPARISON: CT abdomen pelvis 04/09/2016 NUMBER OF VIEWS: Five views including obliques. TECHNIQUE: AP, lateral, oblique, and sacral radiographic images acquired of the lumbar spine. LIMITATIONS: None. FINDINGS: MINERALIZATION: Osteopenic SEGMENTATION: Normal. No transitional anatomy. ALIGNMENT: Normal. VERTEBRAE: Maintained height. No fracture or worrisome bone lesion. DISCS: Preserved height. No significant osteophytes or end plate irregularity. POSTERIOR ELEMENTS: Pedicles and facets are intact. No pars defect or posterior arch defects. HARDWARE: None in the spine. PARASPINAL SOFT TISSUES: Normal. PELVIS: Not in the field of view. SI joints intact. OTHER: No other significant finding. IMPRESSION: NORMAL 5 VIEW LUMBAR SPINE. TECHNICAL DOCUMENTATION: JOB ID: [id number] [employer]- All Rights Reserved Reading location - IP/workstation name: [email or web address]
--- NOTE | 2018-02-27 09:54 | RADIOLOGY REPORT (SQ) ---
EXAM DESCRIPTION: HIP RIGHT AP/LATERAL COMPLETED DATE/TIME: 02/27/2018 9:38 am REASON FOR STUDY: pain radiating across hip down leg COMPARISON: None. NUMBER OF VIEWS: Two views. TECHNIQUE: AP pelvis and additional frog-leg view of the right hip. LIMITATIONS: None. FINDINGS: MINERALIZATION: Normal. RIGHT HIP: No fracture or dislocation. No worrisome bone lesions. No significant joint space narrow ing. LEFT HIP: No fracture or dislocation. No worrisome bone lesions. No significant joint space narrowi ng. PUBIS AND ISCHIUM: No fracture. PELVIS: No fracture. SACRUM: No fracture or dislocation. No worrisome bone lesions. LOWER LUMBAR SPINE: No fracture or dislocation. No worrisome bone lesions. No significant disc disea se. SOFT TISSUES: No findings. OTHER: No other significant finding. IMPRESSION: NEGATIVE STUDY OF THE RIGHT HIP. NO RADIOGRAPHIC EVIDENCE OF ACUTE INJURY. TECHNICAL DOCUMENTATION: JOB ID: [id number] [employer]- All Rights Reserved Reading location - IP/workstation name: [facility]
--- NOTE | 2018-02-27 10:40 | ER Document Report ---
ED Neck/Back Problem - General Chief Complaint: Hip Pain Stated Complaint: HIP PAIN Time Seen by Provider: 02/27/18 08:54 Mode of Arrival: Ambulatory Information source: Patient Notes: 42-year-old female presents to ED for complaint of right low back pain radiating down the right hip and across the right leg. She states there is no loss control of bowel or bladder no loss of control of legs she is able to walk with a even steady gait. TRAVEL OUTSIDE OF THE [place] IN LAST 30 DAYS: No - HPI Patient complains to provider of: Lower back Onset: Other - 3-5 days Where: Home, Work Onset: Gradual Timing: Still present Quality of pain: Burning, Sharp Severity: Moderate Pain Level: 3 Context: Lifting, Turning Recent injury: Possibly Associated symptoms: Radiation to leg, Lower back pain - Right leg. denies: Incontinence, Like prior neck/back pain, Motor loss, Numbness/tingling, Radiation to arm, Radiation to chest, Sensory loss, Unable to urinate, Upper back pain Exacerbated by: Movement of trunk, Sitting position Relieved by: Nothing Similar symptoms previously: No Recently seen / treated by doctor: No - Related Data Allergies/Adverse Reactions: Penicillins Allergy (Verified 02/27/18 08:07) Hives Past Medical History - General Information source: Patient - Social History Smoking Status: Never Smoker Cigarette use (# per day): No Chew tobacco use (# tins/day): No Smoking Education Provided: No Frequency of alcohol use: Rare Drug Abuse: None Occupation: [employer] with: Spouse/Significant other Family History: Reviewed & Not Pertinent, DM, Hypertension Patient has suicidal ideation: No Patient has homicidal ideation: No - Past Medical History Cardiac Medical History: Reports: Hx Hypercholesterolemia - borderline, Hx Hypertension - borderline Pulmonary Medical History: Reports: Hx Asthma - with cold, Hx Bronchitis, Hx Pneumonia EENT Medical History: Reports: None Neurological Medical History: Reports: None Endocrine Medical History: Reports: None Renal/ Medical History: Reports: Hx Kidney Stones Malignancy Medical History: Reports: None GI Medical History: Reports: Hx Gastroesophageal Reflux Disease Musculoskeletal Medical History: Reports None Skin Medical History: Reports None Psychiatric Medical History: Reports: None Traumatic Medical History: Reports: None Infectious Medical History: Reports: None Past Surgical History: Reports: Hx Section, Hx Cholecystectomy, Hx Kidney (Renal Surgery), Hx Orthopedic Surgery - bilateral calfs for compartment syndrome/ l finger surgery, Hx Pancreatic Surgery, Other - Her surgery and bilateral tubal ligation - Immunizations Immunizations up to date: Yes Hx Diphtheria, Pertussis, Tetanus Vaccination: Yes Review of Systems - Review of Systems Constitutional: No symptoms reported EENT: No symptoms reported Cardiovascular: No symptoms reported Respiratory: No symptoms reported Gastrointestinal: No symptoms reported Genitourinary: No symptoms reported Female Genitourinary: No symptoms reported Musculoskeletal: Back pain, Muscle pain, Muscle stiffness Skin: No symptoms reported Hematologic/Lymphatic: No symptoms reported Neurological/Psychological: No symptoms reported -: Yes All other systems reviewed and negative Physical Exam - Vital signs Vitals: Temp Pulse Resp BP Pulse Ox 98.1 F 78 18 139/85 H 99 02/27/18 08:18 02/27/18 08:18 02/27/18 08:18 02/27/18 08:18 02/27/18 08:18 Interpretation: Normal - General General appearance: Appears well, Alert - HEENT Head: Normocephalic, Atraumatic Eyes: Normal Pupils: PERRL - Respiratory Respiratory status: No respiratory distress Chest status: Nontender Breath sounds: Normal Chest palpation: Normal - Cardiovascular Rhythm: Regular Heart sounds: Normal auscultation Murmur: No - Abdominal Inspection: Normal Distension: No distension Bowel sounds: Normal Tenderness: Nontender Organomegaly: No organomegaly - Back Back: Normal, Tender. No: Deformity/step-off, CVA tenderness, Vertebra tenderness, Scars, Scoliosis, Wounds - Extremities General upper extremity: Normal inspection, Nontender, Normal color, Normal ROM , Normal temperature General lower extremity: Normal inspection, Nontender, Normal color, Normal ROM , Normal temperature, Normal weight bearing. No: Hamlet's sign - Neurological Neuro grossly intact: Yes Cognition: Normal Orientation: AAOx4 [place] Coma Scale Eye Opening: Spontaneous [place] Coma Scale Verbal: Oriented [place] Coma Scale Motor: Obeys Commands [place] Coma Scale Total: 15 Speech: Normal Motor strength normal: LUE, RUE, LLE, RLE Sensory: Normal - Psychological Associated symptoms: Normal affect, Normal mood - Skin Skin Temperature: Warm Skin Moisture: Dry Skin Color: Normal Course - Re-evaluation Re-evalutation: 02/27/18 10:44 Patient was treated with Toradol Decadron and Lidoderm patch. Her x-rays were discussed with her and written report of the x-rays given to her for follow-up with her primary doctor. After performing a Medical Screening Examination, I estimate there is LOW risk for EXPANDING OR RUPTURED ABDOMINAL AORTIC ANEURYSM, CAUDA EQUINA SYNDROME, EPIDURAL MASS LESION, or HERNIATED DISK CAUSING SEVERE SPINAL STENOSIS, thus I consider the discharge disposition reasonable. I have reevaluated this patient multiple times and no significant life threatening changes are noted. The patient and I have discussed the diagnosis and risks, and we agree with discharging home and close follow-up. We also discussed returning to the Emergency Department immediately if new or worsening symptoms occur with the understanding that symptoms and presentations can change. We have discussed the symptoms which are most concerning (e.g., saddle anesthesia, urinary or bowel incontinence or retention, changing or worsening pain) that necessitate immediate return. - Vital Signs Vital signs: Temp Pulse Resp BP Pulse Ox 98.1 F 78 18 139/85 H 99 02/27/18 08:18 0818 08:18 02/27/18 08:18 02/27/18 08:18 02/27/18 08:18 - Diagnostic Test Radiology reviewed: Image reviewed, Reports reviewed Discharge - Discharge Clinical Impression: Low back pain with right-sided sciatica Qualifiers: Chronicity: acute Back pain laterality: right Qualified Code(s): M54.41 - Lumbago with sciatica, right side Condition: Stable Disposition: HOME, SELF-CARE Instructions: Family Physicians / Practices Additional Instructions: LOW BACK PAIN: Three out of every four people will have an episode of disabling back pain during their lifetime. Most commonly the pain is due to straining of the muscles and ligaments in the low back. Usual treatment includes: (1) Rest on a firm surface. Avoid lying on your stomach. (2) Ice pack the painful area. After a few days, gentle heat may be used intermittently to relax the area, or ice packs can be continued. (3) Medication may be needed -- muscle relaxers and antiinflammatory medicines are commonly used. (4) As the back improves, exercises are prescribed to strengthen the back and abdominal muscles. Your doctor will advise you on the proper care for your back at each stage in your recovery. You may be better in a few days -- or healing may take several weeks. If new symptoms of a "herniated disc" (radiation of pain, numbness, or tingling down the back of the leg or weakness in the leg) occur, you should be re-examined. Further testing may be necessary. STEROID MEDICATION: You have been given an injection of medicine of the cortisone/steroid class. This medication is used to control inflammation or allergy. It is often continued as a pill for a short period of time, until the acute process subsides. There are usually no side effects from short-term use of cortisone-like medications. Some persons feel an increased sense of well-being and are not sleepy at bedtime. Long-term use of cortisone medications is best avoided, unless required for a severe condition. If your condition does not remit, or relapses after the course of corticosteroid medication, you should consult your physician. Toradol Injection You have been given an injection of ketorolac tromethamine (Toradol). This is an excellent, safe drug for pain control. It also has potent antiinflammatory action. You should have significant pain relief within about one hour. Toradol is not addicting and is non-sedating. It does not interfere with driving or work. Call or return if you develop itching, hives, shortness of breath, or rash. Stretching Exercises for the Back The physician has recommended that you begin stretching exercises for your back. These are often used even while the back is painful. However, you should notify the physician if the activities seem to increase your pain. PELVIC TILT: Lie flat on your back with knees bent. Tighten your stomach and buttock muscles so it flattens your lower back against the floor. Hold 10 seconds. Repeat 10 times, twice daily. KNEE RAISE: Lying on the back with knees bent, raise one knee to your chest, then the other. Hold both knees against the chest 10 seconds, then lower one knee at a time. Repeat 10 times, twice daily. PARTIAL TRUNK RAISE: Lie face down, arms at your sides. Keeping your waist on the floor, use your arms raise your chest up. Support yourself on your elbows for 30 seconds. Repeat twice daily, increasing the time to two minutes as you recover. He was treated with a Lidoderm patch in the emergency room. This needs to be removed in 12 hours. After you remove this she need to wait 12 hours and then started using Aspercreme lidocaine to the area. These follow the instructions on the package. ICE PACKS: Apply ice packs frequently against the painful area. Many different schedules are recommended, such as "20 minutes on, 20 minutes off" or "one hour ice, two hours rest." If you need to work, you may need to go longer between ice treatments. You should plan to have the area ice packed AT LEAST one fourth of the time. The ice should be applied over the wrap, tape, or splint, or over a layer of cloth -- not directly against the skin. Some ice bags have a built-in cloth and can be put directly on the skin. WARM PACKS: After approximately two days, apply gentle heat (such as a heating pad or hot water bottle) for about 20 to 30 minutes about every two hours -- at least four times daily. Warmth and elevation will help you make a more rapid recovery , and will ease the pain considerably. Do not use HOT heat, and never apply heat for longer than 30 minutes. The continuous heat can invisibly damage skin and muscles -- even when no burn is seen on the surface. Damaged muscles can make you MORE sore. FOLLOW-UP CARE: If you have been referred to a physician for follow-up care, call the physician s office for an appointment as you were instructed or within the next two days. If you experience worsening or a significant change in your symptoms, notify the physician immediately or return to the Emergency Department at any time for re-evaluation. Prescriptions: Ibuprofen 800 mg PO Q8HP PRN #20 tablet PRN Reason: Forms: Elevated Blood Pressure, Return to Work
[2018-02-27 10:58] VITALS: BP 132/84
== END 2018-02-27 10:59 | disposition home or self-care (01) ==
LOC: ER 07:50
DX: M54.41 Lumbago with sciatica, right side (principal); M25.551 Pain in right hip; E78.00 Pure hypercholesterolemia, unspecified; I10 Essential (primary) hypertension; Z90.49 Acquired absence of other specified parts of digestive tract; Z98.51 Tubal ligation status
CPT/HCPCS: 99283; 96372; 73502; 72110; J1885; J1100

== ENCOUNTER 2018-03-08 15:28 | Emergency (ER) | payer MEDICAID, OTHER ==
[2018-03-08 15:34] VITALS: BP 139/81
--- NOTE | 2018-03-08 17:02 | ER Document Report ---
ED Burn/Smoke/Toxic Fumes - General Chief Complaint: Thermal Burn Stated Complaint: HAND INJURY Time Seen by Provider: 03/08/18 16:01 Mode of Arrival: Ambulatory Information source: Patient Notes: 2-year-old female presented to ED for burn to the anterior aspect of the left hand. She states she was changing the oral that when she reported that there was hot oil in that and it spilled onto her hand around 1 PM. There is no redness or inflammation noted to the hand there is minimal tenderness when palpated. Patient is alert and oriented respirations regular unlabored speaking in full sentences walk even steady gait. Patient is in no acute distress. TRAVEL OUTSIDE OF THE [place] IN LAST 30 DAYS: No - HPI Patient complains to provider of: Burn - Patient states she burned the back of her left hand at work Onset: This afternoon - Around 1 PM Where: Work Quality of pain: Burning Severity: Moderate Pain Level: 4 Context: Hot liquid - Hot grease Associated Symptoms: None - Related Data Allergies/Adverse Reactions: Penicillins Allergy (Verified 03/08/18 15:28) Hives Past Medical History - General Information source: Patient - Social History Smoking Status: Never Smoker Cigarette use (# per day): No Chew tobacco use (# tins/day): No Smoking Education Provided: No Frequency of alcohol use: None Drug Abuse: None Lives with: Family Family History: Reviewed & Not Pertinent, DM, Hypertension Patient has suicidal ideation: No Patient has homicidal ideation: No - Past Medical History Cardiac Medical History: Reports: Hx Hypercholesterolemia - borderline, Hx Hypertension - borderline Pulmonary Medical History: Reports: Hx Asthma - with cold, Hx Bronchitis, Hx Pneumonia EENT Medical History: Reports: None Neurological Medical History: Reports: None Endocrine Medical History: Reports: None Renal/ Medical History: Reports: Hx Kidney Stones GI Medical History: Reports: Hx Gastroesophageal Reflux Disease Musculoskeletal Medical History: Reports Other - Compartment syndrome Skin Medical History: Reports None Psychiatric Medical History: Reports: None Traumatic Medical History: Reports: None Infectious Medical History: Reports: None Past Surgical History: Reports: Hx Section, Hx Cholecystectomy, Hx Kidney (Renal Surgery), Hx Orthopedic Surgery - bilateral calfs for compartment syndrome/ l finger surgery, Hx Pancreatic Surgery, Other - Her surgery and bilateral tubal ligation - Immunizations Immunizations up to date: Yes Hx Diphtheria, Pertussis, Tetanus Vaccination: Yes Review of Systems - Review of Systems Constitutional: No symptoms reported EENT: No symptoms reported Cardiovascular: No symptoms reported Respiratory: No symptoms reported Gastrointestinal: No symptoms reported Genitourinary: No symptoms reported Female Genitourinary: No symptoms reported Musculoskeletal: No symptoms reported Skin: Other - Lugo to left hand Hematologic/Lymphatic: No symptoms reported Neurological/Psychological: No symptoms reported -: Yes All other systems reviewed and negative Physical Exam - Vital signs Vitals: Temp Pulse Resp BP Pulse Ox 98.4 F 84 16 139/81 H 97 03/08/18 15:31 03/08/18 15:31 03/08/18 15:31 03/08/18 15:31 03/08/18 15:31 Interpretation: Normal - General General appearance: Appears well, Alert - HEENT Head: Normocephalic, Atraumatic Eyes: Normal Pupils: PERRL - Respiratory Respiratory status: No respiratory distress Chest status: Nontender Breath sounds: Normal Chest palpation: Normal - Cardiovascular Rhythm: Regular Heart sounds: Normal auscultation Murmur: No - Abdominal Inspection: Normal Distension: No distension Bowel sounds: Normal Tenderness: Nontender Organomegaly: No organomegaly - Back Back: Normal, Nontender - Extremities General upper extremity: Normal inspection, Normal color, Normal ROM, Normal temperature General lower extremity: Normal inspection, Nontender, Normal color, Normal ROM , Normal temperature, Normal weight bearing. No: Hamlet's sign Hand: Tender - Patient states she burned the back of her hand. No blisters no redness noted, No evidence of human bite, No evidence of FB - Neurological Neuro grossly intact: Yes Cognition: Normal Orientation: AAOx4 [place] Coma Scale Eye Opening: Spontaneous [place] Coma Scale Verbal: Oriented [place] Coma Scale Motor: Obeys Commands [place] Coma Scale Total: 15 Speech: Normal Motor strength normal: LUE, RUE, LLE, RLE Sensory: Normal - Psychological Associated symptoms: Normal affect, Normal mood - Skin Skin Temperature: Warm Skin Moisture: Dry Skin Color: Normal Course - Vital Signs Vital signs: Temp Pulse Resp BP Pulse Ox 98.4 F 84 16 139/81 H 97 03/08/18 15:31 03/08/18 15:31 03/08/18 15:31 03/08/18 15:31 03/08/18 15:31 Discharge - Discharge Clinical Impression: grease burn to back of left hand 1 degree Condition: Stable Disposition: HOME, SELF-CARE Instructions: Family Physicians / Practices Additional Instructions: Lugo The seriousness of a burn is not always obvious at first. Delayed tissue damage and secondary infection may occur despite proper treatment. Proper care is very important. A burn that is third-degree may need skin grafting. Most lugo, however, are simply protected with dressings until healed. Keep the burn clean. If the dressing gets wet, remove it and blot the wound dry, then apply a fresh dressing. Dressings should be changed at least once daily. Soaks to remove crusting are usually started in about two days. Lugo in certain areas require stretching to prevent disabling tightness. Your doctor will advise you about this. For pain control, you may frequently apply a hand towel that has been dipped in water with ice cubes. Do not apply ice directly to the burned areas. If any signs of infection occur (swelling, redness, increasing tenderness, red streaks, tender lumps in the armpit or groin above the burn, or fever), contact the doctor immediately. Antibiotic Ointment Protection Your wounds are such that dressing them is not practical or optional. After cleansing, you should apply a thin coating of antibiotic ointment ( Bacitracin, not Neosporin) to the wounds at least three times daily. This lessens infection risk, and may decrease the amount of scarring. Use a q-tip or dull butter knife, not your finger, to apply this ointment. Any debris or ooze which builds up in the ointment should be gently rubbed off with a sterile gauze pad. Harder crusting may need to be gently scrubbed off with a clean wash cloth with soap and warm water, perhaps applying a warm, wet wash cloth to the wound for ten minutes first. Development of redness, severe itching, or blistering may mean allergy to the ointment. See the doctor. Acetaminophen Acetaminophen may be taken for pain relief or fever control. It's much safer than aspirin, offering a wider range of "safe" dosages. It is safe during . Some brand names are Tylenol, Panadol, Datril, Anacin 3, Tempra, and Liquiprin. Acetaminophen can be repeated every four hours. The following are maximum recommended dosages: WEIGHT Dose Drops Elixir Chewable( 80mg) (LBS.) drprs=droppers tsp=teaspoon 6 40 mg .4 ml (1/2) 6-11 80 mg .8 ml (full) 1/2 tsp 1 tab 12-16 120 mg 1 1/2 drprs 3/4 tsp 1 1/2 tabs 17-23 160 mg 2 drprs 1 tsp 2 tabs 24-30 240 mg 3 drprs 1 1/2 tsp 3 tabs 30-35 320 mg 2 tsp 4 tabs 36-41 360 mg 2 1/4 tsp 4 1 /2 tabs 42-47 400 mg 2 1/2 tsp 5 tabs 48-53 480 mg 3 tsp 6 tabs 54-59 520 mg 3 1/4 tsp 6 1 /2 tabs 60-64 560 mg 3 1/2 tsp 7 tabs 65-70 600 mg 3 3/4 tsp 7 1 /2 tabs 71-76 640 mg 4 tsp 8 tabs 77-82 720 mg 4 1/2 tsp 9 tabs 83-88 800 mg 5 tsp 10 tabs >89 pounds or adults 650 mg to 900 mg Acetaminophen can be repeated every four hours. Maximum daily dose not to exceed 4000 mg. These maximum recommended dosages are slightly higher than the dosages written on the product container, but these dosages are very safe and well below the toxic dosage for acetaminophen. Ibuprofen Ibuprofen is an excellent, safe drug for pain control. In addition, it has potent antiinflammatory effects which are beneficial, especially in the treatment of injuries, arthritis, or tendonitis. It's best to take ibuprofen with food. Persons with ulcer disease or allergy to aspirin should notify their physician of this before taking ibuprofen. Take the medication exactly as prescribed. Don't take additional doses unless instructed to do so by your doctor. If you develop wheezing, shortness of breath, hives, faintness, stomach pain, vomiting, or dark black stools, return for re-evaluation at once. Elevate the Injury Because of the nature of your injury, elevation will be helpful to reduce swelling. This also reduces infection risk in wounds. Keep the injury up above the level of your heart for at least the next 48 hours (or longer if the physician recommends it). FOLLOW-UP CARE: If you have been referred to a physician for follow-up care, call the physician s office for an appointment as you were instructed or within the next two days. If you experience worsening or a significant change in your symptoms, notify the physician immediately or return to the Emergency Department at any time for re-evaluation. Forms: Elevated Blood Pressure, Return to Work
[2018-03-08] MEDS ORDERED: IBUPROFEN 600 MG TABLET PO ONE ×2 (17:03)
== END 2018-03-08 17:08 | disposition home or self-care (01) ==
LOC: ER 15:28
DX: T23.162A Burn of first degree of back of left hand, initial encounter (principal); X12.XXXA Contact with other hot fluids, initial encounter; Y93.89 Activity, other specified; Y99.0 Civilian activity done for income or pay; Z88.0 Allergy status to penicillin; J45.909 Unspecified asthma, uncomplicated
CPT/HCPCS: 99283

== ENCOUNTER 2018-03-17 17:02 | Emergency (ER) | payer SELFPAY ==
--- NOTE | 2018-03-17 17:28 | ER Document Report ---
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 She limits her movement of this thigh. No history of DVT or PE. She also has some low back pain. No saddle anesthesia. No fever or chills. No rash. No specific injury. When she was seen in the emergency room she had an LS spine and a hip x -ray which were both negative. Associated Symptoms: None Exacerbated by: Movement, Walking Relieved by: Denies Similar symptoms previously: Yes Recently seen / treated by doctor: Yes - ROS ROS below otherwise negative: Yes Systems Reviewed and Negative: Yes All other systems reviewed and negative - REPRODUCTIVE Reproductive: DENIES: : Past Medical History - General Information source: Patient - Social History Smoking Status: Never Smoker Lives with: Family Family History: Reviewed & Not Pertinent, DM, Hypertension - Past Medical History Cardiac Medical History: Reports: Hx Hypercholesterolemia - borderline, Hx Hypertension - borderline Pulmonary Medical History: Reports: Hx Asthma - with cold, Hx Bronchitis, Hx Pneumonia Renal/ Medical History: Reports: Hx Kidney Stones GI Medical History: Reports: Hx Gastroesophageal Reflux Disease Past Surgical History: Reports: Hx Section, Hx Cholecystectomy, Hx Kidney (Renal Surgery), Hx Orthopedic Surgery - bilateral calfs for compartment syndrome/ l finger surgery, Hx Pancreatic Surgery, Other - Her surgery and bilateral tubal ligation - Immunizations Immunizations up to date: Yes Hx Diphtheria, Pertussis, Tetanus Vaccination: Yes Vertical Provider Document - CONSTITUTIONAL Agree With Documented VS: Yes Exam Limitations: No Limitations - INFECTION CONTROL TRAVEL OUTSIDE OF THE [place] IN LAST 30 DAYS: Yes - NECK Neck: Supple - RESPIRATORY Respiratory: Breath Sounds Normal, No Respiratory Distress - CARDIOVASCULAR Cardiovascular: Regular Rate, Regular Rhythm - GI/ABDOMEN Gastrointestinal: Abdomen Soft, Abdomen Non-Tender - MUSCULOSKELETAL/EXTREMETIES Musculoskeletal/Extremeties: MAEW - With encouragement, no bony tenderness, no swelling, redness, edema, rash to the thigh, Tender - Right proximal anterior lateral thigh muscle. negative: Edema, Eccymosis - NEURO Level of Consciousness: Awake, Alert Motor/Sensory: No Motor Deficit, No Sensory Deficit - DERM Integumentary: No Rash Course - Re-evaluation Re-evalutation: 08/27/18 18:37 Hip x-rays negative per radiologist and I will doubt it as well. This is a second hip x-ray that have been normal and she seems to be most tender over the proximal right thigh muscle and over the right lateral thigh there is no bony tenderness. Discharge - Discharge Clinical Impression: Muscle strain of right thigh Qualifiers: Encounter type: subsequent encounter Qualified Code(s): S76.911D - Strain of unspecified muscles, fascia and tendons at thigh level, right thigh, subsequent encounter Condition: Good Disposition: HOME, SELF-CARE Instructions: Acetaminophen, Ibuprofen (General) ([facility]), Muscle Strain ([facility]), Warm Packs ([facility]) Additional Instructions: Warm compress to the thigh muscle Gentle range of motion See primary care doctor if this symptom persists or return to the emergency room if it worsens Copy of negative hip x-ray per radiologist Prescriptions: Ibuprofen [Motrin 800 mg Tablet] 800 mg PO Q8HP PRN #30 tablet PRN Reason: Forms: Return to Work
--- NOTE | 2018-03-17 18:18 | RADIOLOGY REPORT (SQ) ---
EXAM DESCRIPTION: HIP RIGHT AP/LATERAL COMPLETED DATE/TIME: 03/17/2018 6:04 pm REASON FOR STUDY: persistant right hip pain COMPARISON: None. NUMBER OF VIEWS: Two views. TECHNIQUE: AP pelvis and additional frog-leg view of the right hip. LIMITATIONS: None. FINDINGS: MINERALIZATION: Normal. RIGHT HIP: No fracture or dislocation. No worrisome bone lesions. LEFT HIP: No fracture or dislocation. No worrisome bone lesions. PUBIS AND ISCHIUM: No fracture. PELVIS: No fracture. SACRUM: No fracture or dislocation. No worrisome bone lesions. LOWER LUMBAR SPINE: No fracture or dislocation. No worrisome bone lesions. No significant disc disea se. SOFT TISSUES: No findings. OTHER: No other significant finding. IMPRESSION: NEGATIVE STUDY OF THE RIGHT HIP. NO RADIOGRAPHIC EVIDENCE OF ACUTE INJURY. TECHNICAL DOCUMENTATION: JOB ID: [id number] [id number] [employer]- All Rights Reserved Reading location - IP/workstation name: [employer]
[2018-03-17 18:27] VITALS: BP 132/81
== END 2018-03-17 18:44 | disposition home or self-care (01) ==
LOC: ER 17:02
DX: S76.911D Strain of unspecified muscles, fascia and tendons at thigh level, right thigh, subsequent encounter (principal); X58.XXXD Exposure to other specified factors, subsequent encounter; E78.00 Pure hypercholesterolemia, unspecified; I10 Essential (primary) hypertension; Z87.442 Personal history of urinary calculi; Z90.49 Acquired absence of other specified parts of digestive tract; Z98.51 Tubal ligation status
CPT/HCPCS: 99283

== ENCOUNTER 2018-04-17 15:46 | Emergency (ER) | payer SELFPAY ==
[2018-04-17 16:10] VITALS: BP 149/90
[2018-04-17] MEDS ORDERED: BUPIVACAINE HCL 0.75% INJ/PF (7.5 MG/1 ML) 10 ML SDV INJ ONE (16:54)
[2018-04-17] MEDS ORDERED: METHYLPREDNISOLONE ACETATE INJ 80 MG/1 ML VIAL IM ONE (16:54)
--- NOTE | 2018-04-17 17:15 | ER Document Report ---
ED Extremity Problem, Lower - General Chief Complaint: Leg Pain Stated Complaint: RIGHT LEG PAIN Time Seen by Provider: 04/17/18 16:54 Mode of Arrival: Ambulatory Information source: Patient Notes: Chief complaint: Right leg pain History of complain:( obtained from----patient) 42 years old female presents today with right hip pain and swelling around that area for the last several days to the point that she has been having difficulty in walking. No injury but pain at workplace she walks a lot. Onset: Gradual Duration: Last few days Severity: Moderate to severe Quality: Sharp Context: Standing and walking a lot Exacerbating factor and relieving factors: Walking and sitting, change of position REVIEW OF SYSTEMS: CONSTITUTIONAL : Denies fever, chills, or sweats. Denies recent illness. EENT: Denies eye, ear, throat, or mouth pain or symptoms. Denies nasal or sinus congestion or discharge. Denies throat, tongue, or mouth swelling or difficulty swallowing. CARDIOVASCULAR: Denies chest pain. Denies palpitations or racing or irregular heart beat. Denies ankle edema. RESPIRATORY: Denies cough, cold, or chest congestion. Denies shortness of breath, difficulty breathing, or wheezing. GASTROINTESTINAL: Denies distention. Denies nausea, vomiting, or diarrhea. Denies blood in vomitus, stools, or per rectum. Denies black, tarry stools. Denies constipation. GENITOURINARY: Denies difficulty urinating, painful urination, burning, frequency, blood in urine, or discharge. FEMALE GENITOURINARY: Denies vaginal bleeding, heavy or abnormal periods, irregular periods. Denies vaginal discharge or odor. MUSCULOSKELETAL: Denies back or neck pain or stiffness. Denies joint pain or swelling. SKIN: Denies rash, lesions or sores. HEMATOLOGIC : Denies easy bruising or bleeding. LYMPHATIC: Denies swollen, enlarged glands. NEUROLOGICAL: Denies confusion or altered mental status. Denies passing out or loss of consciousness. Denies dizziness or lightheadedness. Denies headache. Denies weakness or paralysis or loss of use of either side. Denies problems with gait or speech. Denies sensory loss, numbness, or tingling. Denies seizures. PSYCHIATRIC: Denies anxiety or stress. Denies depression, suicidal ideation, or homicidal ideation. ALL OTHER SYSTEMS REVIEWED AND NEGATIVE. PHYSICAL EXAMINATION: GENERAL: Well-appearing, well-nourished and in no acute distress. Obesity HEAD: Atraumatic, normocephalic. EYES: Pupils equal round and reactive to light, extraocular movements intact, conjunctiva are normal. ENT: Nares patent, oropharynx clear without exudates. Moist mucous membranes. NECK: Normal range of motion, supple without lymphadenopathy LUNGS: Breath sounds clear to auscultation bilaterally and equal. No wheezes rales or rhonchi. HEART: Regular rate and rhythm without murmurs ABDOMEN: Soft, nontender, nondistended abdomen. No guarding, no rebound. No masses appreciated. Examination of genitals-deferred Musculoskeletal: Right trochanteric region shows sharp tenderness on palpation, range of motion limited due to pain. NEUROLOGICAL: Cranial nerves grossly intact. Normal speech, normal gait. Normal sensory, motor exams PSYCH: Normal mood, normal affect. SKIN: Warm, Dry, normal turgor, no rashes or lesions noted. Dictation was performed using [employer] voice recognition software TRAVEL OUTSIDE OF THE [place] IN LAST 30 DAYS: No - HPI Notes: Dictated - Related Data Allergies/Adverse Reactions: Penicillins Allergy (Verified 03/08/18 15:28) Hives Past Medical History - Social History Smoking Status: Never Smoker Chew tobacco use (# tins/day): No Frequency of alcohol use: Rare Drug Abuse: None Lives with: Family Family History: Reviewed & Not Pertinent, DM, Hypertension Patient has suicidal ideation: No Patient has homicidal ideation: No - Past Medical History Cardiac Medical History: Reports: Hx Hypercholesterolemia - borderline, Hx Hypertension - borderline Denies: Hx Coronary Artery Disease, Hx Heart Attack Pulmonary Medical History: Reports: Hx Asthma - with cold, Hx Bronchitis, Hx Pneumonia Renal/ Medical History: Reports: Hx Kidney Stones. Denies: Hx Peritoneal Dialysis GI Medical History: Reports: Hx Gastroesophageal Reflux Disease Musculoskeletal Medical History: Denies Hx Arthritis Psychiatric Medical History: Denies: Hx Depression Past Surgical History: Reports: Hx Section, Hx Cholecystectomy, Hx Kidney (Renal Surgery), Hx Orthopedic Surgery - bilateral calfs for compartment syndrome/ l finger surgery, Hx Pancreatic Surgery, Other - Her surgery and bilateral tubal ligation. Denies: Hx Hysterectomy, Hx Pacemaker - Immunizations Immunizations up to date: Yes Hx Diphtheria, Pertussis, Tetanus Vaccination: Yes Review of Systems - Review of Systems Notes: Dictated Physical Exam - Vital signs Vitals: Temp Pulse Resp BP Pulse Ox 98.3 F 73 16 149/90 H 99 04/17/18 16:08 04/17/18 16:08 04/17/18 16:08 04/17/18 16:08 04/17/18 16:08 - Notes Notes: Dictated Course - Vital Signs Vital signs: Temp Pulse Resp BP Pulse Ox 98.3 F 73 16 149/90 H 99 04/17/18 16:08 04/17/18 16:08 04/17/18 16:08 04/17/18 16:08 04/17/18 16:08 Procedures - Joint Aspiration Right Hip Time completed: 17:10 - Right trochanteric bursa injection Consent obtained: Yes Anesthetic type: Other - Depo-Medrol 80 mg mL's of anesthetic: 6 Needle size: 27 Complications: No Notes: Patient pain relieved almost immediately Discharge - Discharge Clinical Impression: Trochanteric bursitis, right hip Condition: Fair Disposition: HOME, SELF-CARE Instructions: Bursitis ([facility]) Prescriptions: Naproxen 500 mg PO BID #30 tablet.
== END 2018-04-17 17:27 | disposition home or self-care (01) ==
LOC: ER 15:46
DX: M70.61 Trochanteric bursitis, right hip (principal); J45.909 Unspecified asthma, uncomplicated
CPT/HCPCS: 20610 ×2; 99283; 96372; J3490; J1040

== ENCOUNTER 2018-06-21 17:46 | Emergency (ER) | payer SELFPAY ==
[2018-06-21] MEDS ORDERED: IBUPROFEN 600 MG TABLET PO ONE (18:44)
--- NOTE | 2018-06-21 19:18 | RADIOLOGY REPORT (SQ) ---
EXAM DESCRIPTION: WRIST LEFT 3 VIEWS COMPLETED DATE/TIME: 06/21/2018 7:05 pm REASON FOR STUDY: fell onto outstretched COMPARISON: None. NUMBER OF VIEWS: Three views. TECHNIQUE: AP, lateral, and oblique radiographic images acquired of the left wrist. LIMITATIONS: None. FINDINGS: MINERALIZATION: Normal. BONES: A very subtle lucency traverses the scaphoid waist on the frontal radiograph only. SOFT TISSUES: No soft tissue swelling. No foreign body. OTHER: No other significant finding. IMPRESSION: Subtle finding seen on one view only may represent a nondisplaced scaphoid waist fractur e. If snuffbox tenderness is present, recommend conservative management and repeat imaging in 7 to 1 0 days. TECHNICAL DOCUMENTATION: JOB ID: [id number] [employer]- All Rights Reserved Reading location - IP/workstation name: [email or web address]
--- NOTE | 2018-06-21 19:19 | RADIOLOGY REPORT (SQ) ---
EXAM DESCRIPTION: HAND LEFT 3 VIEWS COMPLETED DATE/TIME: 06/21/2018 7:05 pm REASON FOR STUDY: fell onto outstretched COMPARISON: None. EXAM PARAMETERS: NUMBER OF VIEWS: Three views. TECHNIQUE: AP, lateral and oblique radiographic images acquired of the left hand. LIMITATIONS: None. FINDINGS: MINERALIZATION: Normal. BONES: No acute fracture or dislocation. No worrisome bone lesions. JOINTS: No effusions. SOFT TISSUES: No soft tissue swelling. No foreign body. OTHER: No other significant finding. IMPRESSION: No evidence of acute osseous injury. TECHNICAL DOCUMENTATION: JOB ID: [id number] [employer]- All Rights Reserved Reading location - IP/workstation name: [email or web address]
--- NOTE | 2018-06-21 19:46 | ER Document Report ---
HPI - HPI Time Seen by Provider: 06/21/18 18:25 Pain Level: 3 Notes: Patient is a 43-year-old female whose presents to the emergency department with complaint of left wrist pain. Patient reports she tripped and fell earlier and fell onto her outstretched wrist. - CONSTITUTIONAL Constitutional: DENIES: Fever, Chills - REPRODUCTIVE Reproductive: DENIES: : - MUSCULOSKELETAL Musculoskeletal: REPORTS: Extremity pain - L wrist Past Medical History - General Information source: Patient - Social History Smoking Status: Never Smoker Family History: Reviewed & Not Pertinent, DM, Hypertension Patient has suicidal ideation: No Patient has homicidal ideation: No - Past Medical History Cardiac Medical History: Reports: Hx Hypercholesterolemia - borderline, Hx Hypertension - borderline Denies: Hx Coronary Artery Disease, Hx Heart Attack Pulmonary Medical History: Reports: Hx Asthma - with cold, Hx Bronchitis, Hx Pneumonia Renal/ Medical History: Reports: Hx Kidney Stones. Denies: Hx Peritoneal Dialysis GI Medical History: Reports: Hx Gastroesophageal Reflux Disease Musculoskeletal Medical History: Denies Hx Arthritis Psychiatric Medical History: Denies: Hx Depression Past Surgical History: Reports: Hx Section, Hx Cholecystectomy, Hx Kidney (Renal Surgery), Hx Orthopedic Surgery - bilateral calfs for compartment syndrome/ l finger surgery, Hx Pancreatic Surgery, Other - Her surgery and bilateral tubal ligation. Denies: Hx Appendectomy, Hx Hysterectomy, Hx Pacemaker - Immunizations Immunizations up to date: Yes Hx Diphtheria, Pertussis, Tetanus Vaccination: Yes Vertical Provider Document - CONSTITUTIONAL Notes: PHYSICAL EXAMINATION: GENERAL: Well-appearing, well-nourished and in no acute distress. HEAD: Atraumatic, normocephalic. EYES: Pupils equal round extraocular movements intact, conjunctiva are normal. ENT: Nares patent NECK: Normal range of motion LUNGS: No respiratory distress Musculoskeletal: Normal range of motion, mild swelling noted to left wrist on the dorsal surface, small amount of ecchymosis noted. No snuffbox tenderness. Cap refill less than 3 seconds, normal motor and sensation distal to injury. NEUROLOGICAL: Normal speech, normal gait. PSYCH: Normal mood, normal affect. SKIN: Warm, Dry, normal turgor, no rashes or lesions noted. - INFECTION CONTROL TRAVEL OUTSIDE OF THE [place] IN LAST 30 DAYS: No Course - Re-evaluation Re-evalutation: Possible scaphoid fracture on x-rays. Patient continues to report significant pain in her wrist however she does not have any snuffbox tenderness. Radiologist recommendation was to repeat x-rays in 7 days if she is still having pain. I explained this to the patient. I also gave her information for orthopedics. We will place the patient in a volar splint and refer her to orthopedics. Patient is agreeable with this plan. - Vital Signs Vital signs: Temp Pulse Resp BP Pulse Ox 98.5 F 99 18 133/76 H 96 06/21/18 17:54 06/21/18 17:54 06/21/18 17:54 06/21/18 17:54 06/21/18 17:54 Procedures - Immobilization Left wrist Pre-Proc Neuro Vasc Exam: Normal Immobilizer type: Volar splint Post-Proc Neuro Vasc Exam: Normal Alignment checked and good: Yes Discharge - Discharge Clinical Impression: Contusion Qualifiers: Encounter type: initial encounter Contusion area: wrist Laterality: left Qualified Code(s): S60.212A - Contusion of left wrist, initial encounter Condition: Stable Disposition: HOME, SELF-CARE Additional Instructions: The radiologist is concerned that you may have a fracture of the scaphoid bone in your wrist. You do not have pain where you typically would with a scaphoid bone fracture. However due to the amount of pain you are having we will still place you in a splint. The radiologist's recommendation is to repeat the x-ray in 7 days if you are continuing to have pain in that area. Please take ibuprofen 600 mg every 6 hours. Ice and elevate the extremity, apply the ice for 20 minutes at a time. Forms: Special Work Note, Return to Work Referrals: VIINCIUS EVANS, [ACTIVE STAFF] - Follow up as needed
[2018-06-21 19:56] VITALS: BP 144/84
== END 2018-06-21 20:17 | disposition home or self-care (01) ==
LOC: ER 17:46
DX: S60.212A Contusion of left wrist, initial encounter (principal); M25.532 Pain in left wrist; W19.XXXA Unspecified fall, initial encounter; J45.909 Unspecified asthma, uncomplicated
CPT/HCPCS: 99283

== ENCOUNTER 2018-08-27 15:37 | Emergency (ER) | payer BC ==
[2018-08-27 16:04] VITALS: BP 147/76
[2018-08-27] MEDS ORDERED: PSEUDOEPHEDRINE HCL 30 MG TABLET PO ONE (16:26)
[2018-08-27] MEDS ORDERED: IBUPROFEN 800 MG TABLET PO ONE (16:26)
--- NOTE | 2018-08-27 16:27 | ER Document Report ---
HPI - HPI Time Seen by Provider: 08/27/18 16:21 Onset: Yesterday Onset/Duration: Gradual Quality of pain: Throbbing Pain Level: 3 Context: She presents complaining of sore throat ear pain and headache that started yesterday. Patient denies any fever. Associated Symptoms: Earache, Headache, Sore throat Exacerbated by: Denies Relieved by: Denies Similar symptoms previously: Yes Recently seen / treated by doctor: No - ROS ROS below otherwise negative: Yes Systems Reviewed and Negative: Yes All other systems reviewed and negative - CONSTITUTIONAL Constitutional: DENIES: Fever - EENT EENT: REPORTS: Sore Throat, Ear Pain - NEURO Neurology: DENIES: Vision blurred, Dizzinesss / Vertigo - GASTROINTESTINAL Gastrointestinal: DENIES: Nausea, Patient vomiting - REPRODUCTIVE Reproductive: DENIES: : - MUSCULOSKELETAL Musculoskeletal: DENIES: Neck Pain - DERM Skin Color: Normal Skin Problems: None Past Medical History - General Information source: Patient - Social History Smoking Status: Never Smoker Frequency of alcohol use: Occasional Drug Abuse: None Occupation: Foodservice Family History: Reviewed & Not Pertinent, DM, Hypertension - Past Medical History Cardiac Medical History: Reports: Hx Hypercholesterolemia - borderline, Hx Hypertension - borderline Pulmonary Medical History: Reports: Hx Asthma - with cold, Hx Bronchitis, Hx Pneumonia Renal/ Medical History: Reports: Hx Kidney Stones. Denies: Hx Peritoneal Dialysis GI Medical History: Reports: Hx Gastroesophageal Reflux Disease Musculoskeletal Medical History: Denies Hx Arthritis Psychiatric Medical History: Denies: Hx Depression Past Surgical History: Reports: Hx Section, Hx Cholecystectomy, Hx Kidney (Renal Surgery), Hx Orthopedic Surgery - bilateral calfs for compartment syndrome/ l finger surgery, Hx Pancreatic Surgery, Other - Her surgery and bilateral tubal ligation - Immunizations Immunizations up to date: Yes Hx Diphtheria, Pertussis, Tetanus Vaccination: Yes Vertical Provider Document - CONSTITUTIONAL Agree With Documented VS: Yes Exam Limitations: No Limitations General Appearance: WD/WN, No Apparent Distress - INFECTION CONTROL TRAVEL OUTSIDE OF THE [place] IN LAST 30 DAYS: No - HEENT HEENT: Atraumatic, Normocephalic, Pharyngeal Tenderness, Pharyngeal Erythema. negative: Pharyngeal Exudate, Tympanic Membrane Red, Tympanic Membrane Bulging Notes: Clear rhinorrhea, swollen nasal mucosa - NECK Neck: Normal Inspection, Supple. negative: Lymphadenopathy-Left, Lymphadenopathy-Right Notes: No meningismus - RESPIRATORY Respiratory: Breath Sounds Normal, No Respiratory Distress - CARDIOVASCULAR Cardiovascular: Regular Rate, Regular Rhythm, No Murmur - BACK Back: Normal Inspection - MUSCULOSKELETAL/EXTREMETIES Musculoskeletal/Extremeties: MARK, IRWIN - NEURO Level of Consciousness: Awake, Alert, Appropriate Motor/Sensory: No Motor Deficit - DERM Integumentary: Warm, Dry, No Rash Course - Vital Signs Vital signs: Temp Pulse Resp BP Pulse Ox 97.3 F 79 16 147/76 H 100 08/27/18 16:02 08/27/18 16:02 08/27/18 16:02 08/27/18 16:02 08/27/18 16:02 - Laboratory Laboratory results interpreted by me: 08/27/18 17:25 Labs- Entire Visit 08/27/18 16:25 Group A Strep Rapid NEGATIVE Discharge - Discharge Clinical Impression: Sore throat Upper respiratory infection Qualifiers: URI type: unspecified URI Qualified Code(s): J06.9 - Acute upper respiratory infection, unspecified Condition: Stable Disposition: HOME, SELF-CARE Instructions: Sore Throat ([facility]), Upper Respiratory Illness ([facility]) Additional Instructions: Return immediately for any new or worsening symptoms Followup with your primary care provider, call tomorrow to make a followup appointment Prescriptions: Guaifenesin/Pseudoephedrne HCl [Mucinex D ER Tablet] 1 each PO Q12 PRN #12 tab.er.12h PRN Reason: Naproxen [Naprosyn 250 Nmg Tablet] 1 tab PO BID #14 tablet Forms: Return to Work Referrals: JEANETTE PERRY DO [NO LOCAL MD] - Follow up as needed
== END 2018-08-27 17:42 | disposition home or self-care (01) ==
LOC: ER 15:37
DX: J06.9 Acute upper respiratory infection, unspecified (principal); J02.9 Acute pharyngitis, unspecified; H92.09 Otalgia, unspecified ear; R51 Headache; I10 Essential (primary) hypertension; J45.909 Unspecified asthma, uncomplicated
CPT/HCPCS: 87070; 87880; 99283

== ENCOUNTER 2018-10-28 20:02 | Emergency (ER) | payer BC ==
[2018-10-28] MEDS ORDERED: ONDANSETRON 4 MG TAB.RAPDIS PO ONE (22:33)
--- NOTE | 2018-10-28 22:39 | ER Document Report ---
ED Medical Screen (RME) - General Chief Complaint: Flank Pain Stated Complaint: LOW BACK PAIN,NAUSEA Time Seen by Provider: 10/28/18 22:30 TRAVEL OUTSIDE OF THE [place] IN LAST 30 DAYS: No - HPI Notes: 10/28/18 22:35 Patient is a 43-year-old female who reports to the emergency department today for chief complaint of bilateral flank pain which is worse on the right feels like a throbbing intermittent type of pain. She reports that at times the right flank pain wraps around into the right upper quadrant. Patient does state that she has a history of kidney stones but that this does not feel like her usual pain. Denies fever. Does report diarrhea that started yesterday and estimates having around 5 bowel movements today. Does report urinary urgency and nausea. Patient has had gallbladder removed. - Related Data Allergies/Adverse Reactions: Penicillins Allergy (Verified 10/28/18 20:04) Hives Past Medical History - Social History Chew tobacco use (# tins/day): No Frequency of alcohol use: Rare - Past Medical History Cardiac Medical History: Reports: Hx Hypercholesterolemia - borderline, Hx Hypertension - borderline Denies: Hx Coronary Artery Disease, Hx Heart Attack Pulmonary Medical History: Reports: Hx Asthma - with cold, Hx Bronchitis, Hx Pneumonia Renal/ Medical History: Reports: Hx Kidney Stones. Denies: Hx Peritoneal Dialysis GI Medical History: Reports: Hx Gastroesophageal Reflux Disease Musculoskeltal Medical History: Denies Hx Arthritis Psychiatric Medical History: Denies: Hx Depression Past Surgical History: Reports: Hx Section, Hx Cholecystectomy, Hx Kidney (Renal Surgery), Hx Orthopedic Surgery - bilateral calfs for compartment syndrome/ l finger surgery, Hx Pancreatic Surgery, Other - Her surgery and bilateral tubal ligation. Denies: Hx Appendectomy, Hx Hysterectomy, Hx Pacemaker - Immunizations Immunizations up to date: Yes Hx Diphtheria, Pertussis, Tetanus Vaccination: Yes Physical Exam - Vital signs Vitals: Temp Pulse Resp BP Pulse Ox 98.0 F 77 16 150/84 H 99 10/28/18 20:29 10/28/18 20:29 10/28/18 20:29 10/28/18 20:29 10/28/18 20:29 Course - Re-evaluation Re-evalutation: 10/28/18 22:38 I have greeted and performed a rapid initial assessment of this patient. A comprehensive ED assessment and evaluation of the patient, analysis of test results and completion of the medical decision making process will be conducted by additional ED providers. - Vital Signs Vital signs: Temp Pulse Resp BP Pulse Ox 98.0 F 77 16 150/84 H 99 10/28/18 20:29 10/28/18 20:29 10/28/18 20:29 10/28/18 20:29 10/28/18 20:29
[2018-10-28 23:01] LABS: ABSOLUTE BASOPHILS # (AUTO) 0.1 10^3/uL (0.0-0.2); ABSOLUTE EOSINOPHILS # (AUTO) 0.1 10^3/uL (0.0-0.6); ABSOLUTE LYMPHOCYTES (AUTO) 2.7 10^3/uL (0.5-4.7); ABSOLUTE MONOCYTES (AUTO) 0.7 10^3/uL (0.1-1.4); BASOPHILS % (AUTO) 0.7 % (0-2); EOSINOPHILS % (AUTO) 1.5 % (0-6); HEMATOCRIT 37.7 % (36.0-47.0); HEMOGLOBIN 12.8 g/dL (12.0-15.5); LYMPHOCYTES % (AUTO) 28.1 % (13-45); MEAN CORPUSCULAR HEMOGLOBIN 29.9 pg (27.0-33.4); MEAN CORPUSCULAR HGB CONC 33.9 g/dL (32.0-36.0); MEAN CORPUSCULAR VOLUME 88 fl (80-97); PLATELET COUNT 370 10^3/uL (150-450); RED BLOOD COUNT 4.27 10^6/uL (3.72-5.28); RED CELL DISTRIBUTION WIDTH 14.5 % (11.5-14.0); SEGMENTED NEUTROPHILS % (AUTO) 62.7 % (42-78); TOTAL CELLS COUNTED % (AUTO) 100 %; WHITE BLOOD COUNT 9.6 10^3/uL (4.0-10.5)
[2018-10-28 23:09] LABS: APPEARANCE,URINE SLIGHTLY-CLOUDY; BILIRUBIN,URINE NEGATIVE (NEGATIVE); COLOR,URINE YELLOW; GLUCOSE, URINE NEGATIVE (NEGATIVE); KETONES,URINE NEGATIVE (NEGATIVE); LEUKOCYTE ESTERASE,URINE NEGATIVE (NEGATIVE); NITRITE,URINE NEGATIVE (NEGATIVE); PROTEIN,URINE NEGATIVE (NEGATIVE); URINE SPECIFIC GRAVITY 1.028
[2018-10-28 23:20] LABS: ALANINE AMINOTRANSFERASE 24 U/L (9-52); ALBUMIN 4.5 g/dL (3.5-5.0); ALKALINE PHOSPHATASE 107 U/L (38-126); ANION GAP 10 (5-19); ASPARTATE AMINO TRANSFERASE 17 U/L (14-36); BILIRUBIN,DIRECT 0.3 mg/dL (0.0-0.4); BILIRUBIN,TOTAL 0.8 mg/dL (0.2-1.3); BLOOD UREA NITROGEN 10 mg/dL (7-20); CALCIUM 9.5 mg/dL (8.4-10.2); CARBON DIOXIDE 29 mmol/L (22-30); CHLORIDE 103 mmol/L (98-107); GLUCOSE 98 mg/dL (75-110); LIPASE 48.5 U/L (23-300); POTASSIUM 3.9 mmol/L (3.6-5.0); SODIUM 142.4 mmol/L (137-145); TOTAL PROTEIN 7.9 g/dL (6.3-8.2)
[2018-10-29] MEDS ORDERED: CYCLOBENZAPRINE HCL 10 MG TABLET PO ONE (02:38)
[2018-10-29] MEDS ORDERED: NAPROXEN 250 MG TABLET PO ONE (02:39)
[2018-10-29 03:12] VITALS: BP 143/95
--- NOTE | 2018-10-29 05:00 | ER Document Report ---
Entered by UMA MANZANARES SCRIBE 10/29/18 0241 Acting as scribe for:NORA LATHAM MD ED General - General Chief Complaint: Flank Pain Stated Complaint: LOW BACK PAIN,NAUSEA Time Seen by Provider: 10/28/18 22:30 Mode of Arrival: Ambulatory Information source: Patient Notes: Patient is a 43 year old female presenting to the emergency department complaining of right flank pain onset a few days ago. Patient describes the pain as an intermittent sharp sensations that radiates into her right abdomen. She states the pain is exacerbated with movement. She has a history of kidney stones but states her current symptoms are not similar. She also complains of nausea. Patient's last menstrual period was a few weeks ago. TRAVEL OUTSIDE OF THE [place] IN LAST 30 DAYS: No - Related Data Allergies/Adverse Reactions: Penicillins Allergy (Verified 10/28/18 20:04) Hives Past Medical History - General Information source: Patient - Social History Smoking Status: Never Smoker Chew tobacco use (# tins/day): No Frequency of alcohol use: Rare Family History: Reviewed & Not Pertinent, DM, Hypertension Patient has suicidal ideation: No Patient has homicidal ideation: No - Past Medical History Cardiac Medical History: Reports: Hx Hypercholesterolemia - borderline, Hx Hypertension - borderline Pulmonary Medical History: Reports: Hx Asthma - with cold, Hx Bronchitis, Hx Pneumonia Renal/ Medical History: Reports: Hx Kidney Stones GI Medical History: Reports: Hx Gastroesophageal Reflux Disease Past Surgical History: Reports: Hx Section, Hx Cholecystectomy, Hx Kidney (Renal Surgery), Hx Orthopedic Surgery - BL anterior tibialis fasciotomy for compartment syndrome/ l finger surgery, Hx Pancreatic Surgery, Hx Tubal Lig ation - Immunizations Immunizations up to date: Yes Hx Diphtheria, Pertussis, Tetanus Vaccination: Yes Review of Systems - Review of Systems Constitutional: No symptoms reported EENT: No symptoms reported Cardiovascular: No symptoms reported Respiratory: No symptoms reported Gastrointestinal: See HPI Genitourinary: See HPI, Flank pain Female Genitourinary: No symptoms reported Musculoskeletal: No symptoms reported Skin: No symptoms reported Hematologic/Lymphatic: No symptoms reported Neurological/Psychological: No symptoms reported -: Yes All other systems reviewed and negative Physical Exam - Vital signs Vitals: Temp Pulse Resp BP Pulse Ox 98.0 F 77 16 150/84 H 99 10/28/18 20:29 10/28/18 20:29 04/09/19 20:29 10/28/18 20:29 10/28/18 20:29 - Notes Notes: GENERAL: Alert, interacts well. No acute distress. HEAD: Normocephalic, atraumatic. EYES: Pupils equal, round, and reactive to light. Extraocular movements intact. ENT: Oral mucosa moist, tongue midline. NECK: Full range of motion. Supple. Trachea midline. LUNGS: Clear to auscultation bilaterally, no wheezes, rales, or rhonchi. No respiratory distress. HEART: Regular rate and rhythm. No murmurs, gallops, or rubs. ABDOMEN: Soft, non-tender. Non-distended. Bowel sounds present in all 4 quadra nts. No guarding, rigidity, or rebound. EXTREMITIES: Moves all 4 extremities spontaneously. No edema, radial and dorsalis pedis pulses 2/4 bilaterally. No cyanosis. NEUROLOGICAL: Alert and oriented x3. Normal speech. PSYCH: Normal affect, normal mood. SKIN: Warm, dry, normal turgor. No rashes or lesions noted. BACK: Lumbar muscles tender to palpation, R>L. Complains of pain with sitting up and twisting trunk side to side. Course - Vital Signs Vital signs: Temp Pulse Resp BP Pulse Ox 98.0 F 75 16 143/95 H 100 10/28/18 20:29 10/29/18 03:07 10/29/18 03:07 10/29/18 03:07 10/29/18 03:07 - Laboratory Result Diagrams: 10/28/18 22:52 10/28/18 22:52 Laboratory results interpreted by me: 10/28/18 10/28/18 22:52 22:52 RDW 14.5 H Urine Blood SMALL H Urine Urobilinogen 2.0 H Discharge - Discharge Clinical Impression: Lumbar back pain Condition: Stable Disposition: HOME, SELF-CARE Additional Instructions: Low Back Pain Three out of every four people will have an episode of disabling back pain during their lifetime. Most commonly the pain is due to straining of the muscles and ligaments in the low back. Usual treatment includes: (1) Rest on a firm surface. Avoid lying on your stomach. (2) Ice pack the painful area. After a few days, gentle heat may be used intermittently to relax the area, or ice packs can be continued. (3) Medication may be needed -- muscle relaxers and antiinflammatory medicines are commonly used. (4) As the back improves, exercises are prescribed to strengthen the back and abdominal muscles. Your doctor will advise you on the proper care for your back at each stage in your recovery. You may be better in a few days -- or healing may take several weeks. If new symptoms of a "herniated disc" (radiation of pain, numbness, or tingling down the back of the leg or weakness in the leg) occur, you should be re-examined. Further testing may be necessary. Take the medication as prescribed. Rest. Limit activity that makes the back hurt worse. Try moist heat to the painful back muscles. Follow-up with your doctor this week for recheck if not improving. RETURN TO THE EMERGENCY ROOM IF ANY NEW OR WORSENING SYMPTOMS. Prescriptions: Cyclobenzaprine HCl [Flexeril 5 mg Tablet] 5 mg PO TID PRN #15 tablet PRN Reason: Naproxen [Naprosyn 375 Mg Tablet] 375 mg PO BID #20 tablet Forms: Return to Work Scribe Attestation: 10/29/18 02:39 I personally performed the services described in the documentation, reviewed and edited the documentation which was dictated to the scribe in my presence, and it accurately records my words and actions. I personally performed the services described in the documentation, reviewed and edited the documentation which was dictated to the scribe in my presence, and it accurately records my words and actions.
== END 2018-10-29 03:15 | disposition home or self-care (01) ==
LOC: ER 20:02
DX: M54.5 Low back pain (principal); R10.9 Unspecified abdominal pain; R11.0 Nausea; Z88.0 Allergy status to penicillin; Z87.442 Personal history of urinary calculi; Z98.51 Tubal ligation status
CPT/HCPCS: 99283; 36415; 83690; 84703; 85025; 80053; 81001; S0119

== ENCOUNTER 2018-12-29 16:46 | Emergency (ER) | payer BC ==
[2018-12-29 16:53] VITALS: BP 152/84
[2018-12-29] MEDS ORDERED: DEXAMETHASONE 4 MG TABLET PO ONE (18:48)
--- NOTE | 2018-12-29 18:48 | ER Document Report ---
ED General - General Chief Complaint: Sore Throat Stated Complaint: SORE THROAT Time Seen by Provider: 12/29/18 18:45 Notes: Patient is a 43-year-old female without chronic medical problems who presents with sore throat, cough and feeling generally unwell for the past 48 hours. Patient states that her symptoms started gradually, been worsening since onset. Not improved or worsened by anything. Describes the sore throat as being a mild, throbbing, aching discomfort. Has not had fever. Denies difficulty swallowing or breathing. Multiple sick contacts with similar symptoms. Has not seen her primary care doctor regarding today's concerns. States this feels somewhat similar to when she had strep pharyngitis in the past. TRAVEL OUTSIDE OF THE [place] IN LAST 30 DAYS: No - Related Data Allergies/Adverse Reactions: Penicillins Allergy (Verified 12/29/18 16:47) Hives Past Medical History - General Information source: Patient - Social History Smoking Status: Never Smoker Frequency of alcohol use: None Drug Abuse: None Family History: Reviewed & Not Pertinent, DM, Hypertension - Past Medical History Cardiac Medical History: Reports: Hx Hypercholesterolemia - borderline, Hx Hypertension - borderline Denies: Hx Coronary Artery Disease, Hx Heart Attack Pulmonary Medical History: Reports: Hx Asthma - with cold, Hx Bronchitis, Hx Pneumonia Renal/ Medical History: Reports: Hx Kidney Stones. Denies: Hx Peritoneal Dialysis GI Medical History: Reports: Hx Gastroesophageal Reflux Disease Musculoskeletal Medical History: Denies Hx Arthritis Psychiatric Medical History: Denies: Hx Depression Past Surgical History: Reports: Hx Section, Hx Cholecystectomy, Hx Kidney (Renal Surgery), Hx Orthopedic Surgery - BL anterior tibialis fasciotomy for compartment syndrome/ l finger surgery, Hx Pancreatic Surgery, Hx Tubal Ligation, Other - Her surgery and bilateral tubal ligation. Denies: Hx Appendectomy, Hx Hysterectomy, Hx Pacemaker - Immunizations Immunizations up to date: Yes Hx Diphtheria, Pertussis, Tetanus Vaccination: Yes Review of Systems - Review of Systems Notes: Constitutional: Negative for fever. HENT: Positive for sore throat. Eyes: Negative for visual changes. Cardiovascular: Negative for chest pain. Respiratory: Negative for shortness of breath. Gastrointestinal: Negative for abdominal pain, vomiting or diarrhea. Genitourinary: Negative for dysuria. Musculoskeletal: Negative for back pain. Skin: Negative for rash. Neurological: Negative for headaches, weakness or numbness. 10 point ROS negative except as marked above and in HPI. Physical Exam - Vital signs Vitals: Temp Pulse Resp BP Pulse Ox 98.3 F 87 18 152/84 H 99 12/29/18 16:52 12/29/18 16:52 12/29/18 16:52 12/29/18 16:52 12/29/18 16:52 Interpretation: Hypertensive Notes: PHYSICAL EXAMINATION: GENERAL: Well-appearing, well-nourished and in no acute distress. HEAD: Atraumatic, normocephalic. EYES: Pupils equal round and reactive to light, extraocular movements intact, sclera anicteric, conjunctiva are normal. ENT: nares patent, oropharynx clear without exudates. Moist mucous membranes. NECK: Normal range of motion, bilateral anterior cervical lymphadenopathy LUNGS: Breath sounds clear to auscultation bilaterally and equal. No wheezes rales or rhonchi. HEART: Regular rate and rhythm without murmurs ABDOMEN: Soft, nontender, normoactive bowel sounds. No guarding, no rebound. No masses appreciated. EXTREMITIES: Normal range of motion, no pitting or edema. No cyanosis. NEUROLOGICAL: No focal neurological deficits. Moves all extremities spontaneously and on command. PSYCH: Normal mood, normal affect. SKIN: Warm, Dry, normal turgor, no rashes or lesions noted. Course - Re-evaluation Re-evalutation: 12/29/18 18:47 Presentation of several days of sore throat in an otherwise well-appearing patient. Rapid strep is negative. History and exam are not consistent with a retropharyngeal abscess or peritonsillar abscess. Airway is patent. No difficulty handling oral secretions. Vitals within normal limits. Patient was treated with a dose of dexamethasone and advised on symptomatic care. Suspect likely viral pharyngitis. At this time will discharge with return precautions and follow-up recommendations. Verbal discharge instructions given a the bedside and opportunity for questions given. Medication warnings reviewed. Patient is in agreement with this plan and has verbalized understanding of return precautions and the need for primary care follow-up in the next 24-72 hours. - Vital Signs Vital signs: Temp Pulse Resp BP Pulse Ox 98.3 F 87 18 152/84 H 99 12/29/18 16:52 12/29/18 16:52 12/29/18 16:52 12/29/18 16:52 12/29/18 16:52 Discharge - Discharge Clinical Impression: Viral pharyngitis, Sore throat Condition: Good Disposition: HOME, SELF-CARE Additional Instructions: Your strep test is negative. Your symptoms are likely due to an viral infection and will resolve in the next 1-2 weeks. You have also been given a dose of steroids to help with your throat discomfort. Please continue to take ibuprofen 600 mg every 6 hours or Tylenol 1000 mg every 6 hours as needed for throat discomfort. You can also gargle with salt water. Continue to drink plenty of fluids. Follow-up with your primary care doctor in the next several days. Return if you become unable to swallow, have difficulty breathing, pass out, have persistent vomiting that prevents you from being able to tolerate fluids, or have any other symptoms that are concerning to you.
== END 2018-12-29 19:02 | disposition home or self-care (01) ==
LOC: ER 16:46
DX: J02.9 Acute pharyngitis, unspecified (principal); R05 Cough; I10 Essential (primary) hypertension; J45.909 Unspecified asthma, uncomplicated
CPT/HCPCS: 87070; 87880; 99283

== ENCOUNTER 2019-05-14 06:57 | Emergency (ER) | payer BC ==
[2019-05-14 07:06] VITALS: BP 126/82
[2019-05-14] MEDS ORDERED: PREDNISONE 20 MG TABLET PO ONE (07:49)
[2019-05-14] MEDS ORDERED: ALBUTEROL SULFATE HFA (90 MCG/PUFF) 8 GM MDI (1 MDI/ER DISP) IH ONE (07:49)
[2019-05-14] MEDS ORDERED: BENZONATATE 100 MG CAPSULE PO ONE (07:49)
--- NOTE | 2019-05-14 07:51 | ER Document Report ---
ED Respiratory Problem - General Chief Complaint: Cold Symptoms Stated Complaint: COLD SYMPTOMS Time Seen by Provider: 05/14/19 07:29 Mode of Arrival: Ambulatory Information source: Patient, [facility] Records Notes: This 43-year-old female patient comes emergency room with URI symptoms for the past week. She has a cough which she reports is thick sputum, but she swallows it and has not looked at it. There is some nasal congestion without nasal drainage. There is no fever. There is no nausea vomiting or diarrhea. She does notice that she wheezes at night. She is previously been treated for reactive airways disease and is known to wheeze when she has upper respiratory tract infections. TRAVEL OUTSIDE OF THE [place] IN LAST 30 DAYS: No - Related Data Allergies/Adverse Reactions: Penicillins Allergy (Verified 12/29/18 16:47) Hives Home Medications: none Past Medical History - General Information source: Patient, [facility] Records - Social History Smoking Status: Never Smoker Cigarette use (# per day): No Chew tobacco use (# tins/day): No Smoking Education Provided: No Frequency of alcohol use: None Drug Abuse: None Occupation: [employer] Family History: Reviewed & Not Pertinent, DM, Hypertension Patient has suicidal ideation: No Patient has homicidal ideation: No - Past Medical History Cardiac Medical History: Reports: Hx Hypercholesterolemia - borderline, Hx Hypertension - borderline Pulmonary Medical History: Reports: Hx Asthma - RAD w/ URI's, Hx Bronchitis, Hx Pneumonia Renal/ Medical History: Reports: Hx Kidney Stones GI Medical History: Reports: Hx Gastroesophageal Reflux Disease Past Surgical History: Reports: Hx Section, Hx Cholecystectomy, Hx Kidney (Renal Surgery), Hx Orthopedic Surgery - BL anterior tibialis fasciotomy for compartment syndrome/ l finger surgery, Hx Pancreatic Surgery, Hx Tubal Ligation, Other - Her surgery and bilateral tubal ligation - Immunizations Immunizations up to date: Yes Hx Diphtheria, Pertussis, Tetanus Vaccination: Yes Review of Systems - Review of Systems Constitutional: No symptoms reported EENT: Nose congestion Cardiovascular: No symptoms reported Respiratory: Cough, Wheezing Gastrointestinal: No symptoms reported Genitourinary: No symptoms reported Female Genitourinary: See HPI - End march Musculoskeletal: No symptoms reported Skin: No symptoms reported Hematologic/Lymphatic: No symptoms reported Neurological/Psychological: No symptoms reported Physical Exam - Vital signs Vitals: Temp Pulse Resp BP Pulse Ox 97.8 F 72 16 126/82 H 98 05/14/19 06:58 05/14/19 06:58 05/14/19 06:58 05/14/19 06:58 05/14/19 06:58 - General General appearance: Appears well, Alert In distress: None - HEENT Head: Normocephalic, Atraumatic Eyes: Normal Pupils: PERRL Tympanic membrane: Normal Nasal: Other - There is some nasal and sinus congestion. Pharynx: Normal - Respiratory Respiratory status: No respiratory distress Breath sounds: Nonproductive cough, Rhonchi, Wheezing - Cardiovascular Rhythm: Regular Heart sounds: Normal auscultation Murmur: No - Abdominal Inspection: Normal - Back Back: Normal - Extremities General upper extremity: Normal inspection General lower extremity: Normal inspection - Neurological Neuro grossly intact: Yes - Psychological Associated symptoms: Normal affect, Normal mood - Skin Skin Temperature: Warm Skin Moisture: Dry Skin Color: Normal Course - Vital Signs Vital signs: Temp Pulse Resp BP Pulse Ox 97.8 F 72 16 126/82 H 98 05/14/19 06:58 05/14/19 06:58 05/14/19 06:58 05/14/19 06:58 05/14/19 06:58 Discharge - Discharge Clinical Impression: Bronchitis with bronchospasm Condition: Stable Disposition: HOME, SELF-CARE Additional Instructions: Bronchitis with Bronchospasm (Wheezing) You have bronchitis with bronchospasm (wheezing). Sometimes people develop wheezing with a chest cold. This occurs either because of an underlying tendency toward asthma or because the virus itself irritates the bronchial tubes. This irritation causes cough, shortness of breath, and wheezing. Emergency treatment of bronchospasm may include adrenaline shots or bronchodilator aerosol. You may feel lightheaded and have a rapid pulse for an hour or two. Rest and get plenty of fluids. At home, we'll treat you with a bronchodilator inhaler. Corticosteroids may be required for some patients. Until you recover, avoid chemical fumes, dusts, pollens, and exercising in very cold or dry air. If you smoke, stop now! Most cases of bronchitis get better without antibiotics. We prescribe antibiotics when we believe bacteria are damaging your airways, or if there's high risk the bronchitis will worsen into pneumonia. Increase your fluid intake. A cool mist humidifier may make your lungs more comfortable. An expectorant (cough medicine that loosens phlegm) can help. Repeated episodes of bronchitis and bronchospasm may result in lung damage -- for example, chronic bronchitis, recurrent pneumonias, or emphysema. If you develop a fever, increased wheezing, chest pain, or severe shortness of breath, you should contact the doctor immediately. Start the prednisone as prescribed tomorrow, you have had today's dose here in the emergency room. Take the Tessalon Perles as prescribed for cough. Get the generic version of Delsym DM to take to help suppress your cough. Use the albuterol inhaler dispensed to you for wheezing as needed. Take 2 puffs every 4 hours when needed. Drink plenty of fluids and get plenty of rest. Follow-up with local medical doctor if not improving. RETURN TO THE EMERGENCY ROOM IF ANY NEW OR WORSENING SYMPTOMS. Prescriptions: Prednisone [Deltasone 10 mg Tablet] 10 mg PO ASDIR PRN #21 tablet PRN Reason: Benzonatate [Tessalon Perles 100 mg Capsule] 100 mg PO ASDIR PRN #30 capsule PRN Reason:
== END 2019-05-14 08:05 | disposition home or self-care (01) ==
LOC: ER 06:57
DX: J45.909 Unspecified asthma, uncomplicated (principal); R05 Cough; R09.81 Nasal congestion; Z87.01 Personal history of pneumonia (recurrent); Z88.0 Allergy status to penicillin
CPT/HCPCS: J7512; J3490; 99283

== ENCOUNTER 2019-05-21 17:41 | Emergency (ER) | payer BC ==
--- NOTE | 2019-05-21 18:10 | ER Document Report ---
ED Medical Screen (RME) - General Chief Complaint: Cough Stated Complaint: COUGH,CONGESTION,DIZZY Time Seen by Provider: 05/21/19 18:06 Mode of Arrival: Ambulatory Information source: Patient Notes: 43-year-old female presented to ED for cough congestion for the last 2 weeks. She states she has been dizzy and lightheaded for the last 2 to 3 days. She states she was diagnosed with bronchitis and given steroids but no antibiotics last week. She states she is getting worse and she is now becoming very dizzy with chest tightness. Patient is alert oriented respirations regular and unlabored she does have very elevated blood pressure. I have greeted and performed a rapid initial assessment of this patient. A comprehensive ED assessment and evaluation of the patient, analysis of test results and completion of medical decision making process will be conducted by an additional ED providers. TRAVEL OUTSIDE OF THE [place] IN LAST 30 DAYS: No - Related Data Allergies/Adverse Reactions: Penicillins Allergy (Verified 05/21/19 18:00) Hives Past Medical History - Social History Chew tobacco use (# tins/day): No Frequency of alcohol use: None Drug Abuse: None - Past Medical History Cardiac Medical History: Reports: Hx Hypercholesterolemia - borderline, Hx Hypertension - borderline Denies: Hx Coronary Artery Disease, Hx Heart Attack Pulmonary Medical History: Reports: Hx Asthma - RAD w/ URI's, Hx Bronchitis, Hx Pneumonia Renal/ Medical History: Reports: Hx Kidney Stones. Denies: Hx Peritoneal Dialysis GI Medical History: Reports: Hx Gastroesophageal Reflux Disease Musculoskeltal Medical History: Denies Hx Arthritis Psychiatric Medical History: Denies: Hx Depression Past Surgical History: Reports: Hx Section, Hx Cholecystectomy, Hx Kidney (Renal Surgery), Hx Orthopedic Surgery - BL anterior tibialis fasciotomy for compartment syndrome/ l finger surgery, Hx Pancreatic Surgery, Hx Tubal Ligation, Other - Her surgery and bilateral tubal ligation. Denies: Hx Appendectomy, Hx Hysterectomy, Hx Pacemaker - Immunizations Immunizations up to date: Yes Hx Diphtheria, Pertussis, Tetanus Vaccination: Yes Physical Exam - Vital signs Vitals: Temp Pulse Resp BP Pulse Ox 97.8 F 90 18 161/93 H 100 05/21/19 17:45 05/21/19 17:45 05/21/19 17:45 05/21/19 17:45 05/21/19 17:45 Course - Vital Signs Vital signs: Temp Pulse Resp BP Pulse Ox 97.8 F 90 18 161/93 H 100 05/21/19 17:45 05/21/19 17:45 05/21/19 17:45 05/21/19 17:45 05/21/19 17:45
--- NOTE | 2019-05-21 18:31 | RADIOLOGY REPORT (SQ) ---
EXAM DESCRIPTION: CHEST 2 VIEWS COMPLETED DATE/TIME: 05/21/2019 6:23 pm REASON FOR STUDY: cough short of breath COMPARISON: 12/08/2017 EXAM PARAMETERS: NUMBER OF VIEWS: two views TECHNIQUE: Digital Frontal and Lateral radiographic views of the chest acquired. RADIATION DOSE: NA LIMITATIONS: none FINDINGS: LUNGS AND PLEURA: No opacities, masses or pneumothorax. No pleural effusion. MEDIASTINUM AND HILAR STRUCTURES: No masses or contour abnormalities. HEART AND VASCULAR STRUCTURES: Heart normal size. No evidence for failure. BONES: No acute findings. HARDWARE: None in the chest. OTHER: No other significant finding. IMPRESSION: NO ACUTE RADIOGRAPHIC FINDING IN THE CHEST. TECHNICAL DOCUMENTATION: JOB ID: [id number] [employer]- All Rights Reserved Reading location - IP/workstation name: [email or web address]
[2019-05-21 19:14] LABS: APPEARANCE,URINE SLIGHTLY-CLOUDY; BILIRUBIN,URINE NEGATIVE (NEGATIVE); COLOR,URINE YELLOW; GLUCOSE, URINE NEGATIVE (NEGATIVE); KETONES,URINE NEGATIVE (NEGATIVE); PROTEIN,URINE NEGATIVE (NEGATIVE); URINE SPECIFIC GRAVITY 1.018; UROBILINOGEN,URINE NEGATIVE mg/dL (<2.0)
[2019-05-21 19:16] LABS: ABSOLUTE BASOPHILS # (AUTO) 0.1 10^3/uL (0.0-0.2); ABSOLUTE EOSINOPHILS # (AUTO) 0.2 10^3/uL (0.0-0.6); ABSOLUTE LYMPHOCYTES (AUTO) 3.1 10^3/uL (0.5-4.7); ABSOLUTE MONOCYTES (AUTO) 0.6 10^3/uL (0.1-1.4); ABSOLUTE NEUT (AUTO) 8.6 10^3/uL (1.7-8.2); BASOPHILS % (AUTO) 0.8 % (0-2); EOSINOPHILS % (AUTO) 1.6 % (0-6); HEMATOCRIT 36.3 % (36.0-47.0); HEMOGLOBIN 12.2 g/dL (12.0-15.5); LYMPHOCYTES % (AUTO) 24.8 % (13-45); MEAN CORPUSCULAR HEMOGLOBIN 29.5 pg (27.0-33.4); MEAN CORPUSCULAR HGB CONC 33.7 g/dL (32.0-36.0); MEAN CORPUSCULAR VOLUME 88 fl (80-97); MONOCYTES % (AUTO) 4.4 % (3-13); PLATELET COUNT 406 10^3/uL (150-450); RED BLOOD COUNT 4.14 10^6/uL (3.72-5.28); RED CELL DISTRIBUTION WIDTH 14.8 % (11.5-14.0); SEGMENTED NEUTROPHILS % (AUTO) 68.4 % (42-78); TOTAL CELLS COUNTED % (AUTO) 100 %; WHITE BLOOD COUNT 12.6 10^3/uL (4.0-10.5)
[2019-05-21 19:31] LABS: INTERNATIONAL RATION (INR) 0.89
[2019-05-21 19:32] LABS: PARTIAL THROMBOPLASTIN TIME 25.8 SEC (23.5-35.8)
[2019-05-21 19:42] LABS: ALBUMIN 3.9 g/dL (3.5-5.0); ALKALINE PHOSPHATASE 91 U/L (38-126); ANION GAP 7 (5-19); ASPARTATE AMINO TRANSFERASE 14 U/L (14-36); BILIRUBIN,DIRECT 0.1 mg/dL (0.0-0.4); BILIRUBIN,TOTAL 0.5 mg/dL (0.2-1.3); BLOOD UREA NITROGEN 13 mg/dL (7-20); CALCIUM 9.3 mg/dL (8.4-10.2); CARBON DIOXIDE 30 mmol/L (22-30); CHLORIDE 106 mmol/L (98-107); CREATINE KINASE 36 U/L (30-135); GLUCOSE 75 mg/dL (75-110); POTASSIUM 3.5 mmol/L (3.6-5.0); TOTAL PROTEIN 6.8 g/dL (6.3-8.2)
[2019-05-21 19:56] LABS: CREATINE KINASE MB 0.43 ng/mL (<4.55); NT PRO BNP 165 pg/mL (<125)
[2019-05-21 19:57] LABS: TROPONIN I < 0.012 ng/mL
--- NOTE | 2019-05-21 23:18 | EKG REPORT ---
SEVERITY:- NORMAL ECG - SINUS RHYTHM : Confirmed by: Christian Burton MD 21-May-2019 23:17:09
--- NOTE | 2019-05-21 23:51 | ER Document Report ---
ED General - General Chief Complaint: Cough Stated Complaint: COUGH,CONGESTION,DIZZY Time Seen by Provider: 05/21/19 18:06 Mode of Arrival: Ambulatory TRAVEL OUTSIDE OF THE [place] IN LAST 30 DAYS: No - HPI Notes: 43-year-old female, non-smoker, presents complaining of cough congestion sinus pressure for approximately 3 weeks. Patient states that she was seen here in the emergency department earlier this month and was given prednisone and a MDI. Patient states that her symptoms have not improved and. Patient states she does have a productive cough and does feel fullness in her sinuses. Patient denies fever, patient denies myalgias or arthralgias, patient denies neck stiffness. Differential diagnosis: Acute sinusitis, acute bronchitis, reactive airway disease, pneumonia - Related Data Allergies/Adverse Reactions: Penicillins Allergy (Verified 05/21/19 18:00) Hives Past Medical History - General Information source: Patient - Social History Smoking Status: Never Smoker Chew tobacco use (# tins/day): No Frequency of alcohol use: None Drug Abuse: None Family History: Reviewed & Not Pertinent, DM, Hypertension Patient has suicidal ideation: No Patient has homicidal ideation: No - Past Medical History Cardiac Medical History: Reports: Hx Hypercholesterolemia - borderline, Hx Hypertension - borderline Denies: Hx Coronary Artery Disease, Hx Heart Attack Pulmonary Medical History: Reports: Hx Asthma - RAD w/ URI's, Hx Bronchitis, Hx Pneumonia Renal/ Medical History: Reports: Hx Kidney Stones. Denies: Hx Peritoneal Dialysis GI Medical History: Reports: Hx Gastroesophageal Reflux Disease Musculoskeletal Medical History: Denies Hx Arthritis Psychiatric Medical History: Denies: Hx Depression Past Surgical History: Reports: Hx Section, Hx Cholecystectomy, Hx Kidney (Renal Surgery), Hx Orthopedic Surgery - BL anterior tibialis fasciotomy for compartment syndrome/ l finger surgery, Hx Pancreatic Surgery, Hx Tubal Ligation, Other - Her surgery and bilateral tubal ligation. Denies: Hx Appendectomy, Hx Hysterectomy, Hx Pacemaker - Immunizations Immunizations up to date: Yes Hx Diphtheria, Pertussis, Tetanus Vaccination: Yes Review of Systems - Review of Systems Constitutional: No symptoms reported EENT: Sinus pressure Cardiovascular: No symptoms reported Respiratory: Cough Gastrointestinal: No symptoms reported Genitourinary: No symptoms reported Female Genitourinary: No symptoms reported Musculoskeletal: No symptoms reported Skin: No symptoms reported Hematologic/Lymphatic: No symptoms reported Neurological/Psychological: No symptoms reported -: Yes All other systems reviewed and negative Physical Exam - Vital signs Vitals: Temp Pulse Resp BP Pulse Ox 97.8 F 90 18 161/93 H 100 05/21/19 17:45 05/21/19 17:45 05/21/19 17:45 05/21/19 17:45 05/21/19 17:45 - Notes Notes: PHYSICAL EXAMINATION: GENERAL: Well-appearing, well-nourished and in no acute distress. HEAD: Atraumatic, normocephalic. EYES: Pupils equal round and reactive to light, extraocular movements intact, sclera anicteric, conjunctiva are normal. ENT: nares patent, oropharynx clear without exudates. Moist mucous membranes. Maxillary sinuses are tender to light percussion bilaterally. NECK: Normal range of motion, supple without lymphadenopathy LUNGS: Breath sounds clear to auscultation bilaterally and equal. No wheezes ra les or rhonchi. HEART: Regular rate and rhythm without murmurs ABDOMEN: Soft, nontender, normoactive bowel sounds. No guarding, no rebound. No masses appreciated. EXTREMITIES: Normal range of motion, no pitting or edema. No cyanosis. NEUROLOGICAL: No focal neurological deficits. Moves all extremities spontaneously and on command. PSYCH: Normal mood, normal affect. SKIN: Warm, Dry, normal turgor, no rashes or lesions noted. Course - Re-evaluation Re-evalutation: 05/22/19 00:29 Medical screening exam findings discussed with patient. Diagnosis plan of treatment discussed with patient all questions were answered prior to patient discharge. - Vital Signs Vital signs: Temp Pulse Resp BP Pulse Ox 97.8 F 90 18 161/93 H 100 05/21/19 17:45 05/21/19 17:45 05/21/19 17:45 05/21/19 17:45 05/21/19 17:45 - Laboratory Result Diagrams: 05/21/19 18:57 05/21/19 18:57 Laboratory results interpreted by me: 05/21/19 05/21/19 05/21/19 18:45 18:57 18:57 WBC 12.6 H RDW 14.8 H Absolute Neuts (auto) 8.6 H Potassium 3.5 L NT-Pro-B Natriuret Pep Urine Blood LARGE H Leukocyte Esterase Rfl TRACE H 05/21/19 18:57 WBC RDW Absolute Neuts (auto) Potassium NT-Pro-B Natriuret Pep 165 H Urine Blood Leukocyte Esterase Rfl - Diagnostic Test Radiology reviewed: Reports reviewed - EKG Interpretation by Me Additional EKG results interpreted by me: 05/22/19 00:29 EKG performed on 05/21/2019 at 1914 hrs. was interpreted by this MD. Findings: Normal sinus rhythm, rate 78, normal axis, pes preceding QRS, narrow QRS complex, no obvious ST elevation or depression indicative of acute injury pattern. Impression normal EKG. Discharge - Discharge Clinical Impression: Acute respiratory infection Disposition: HOME, SELF-CARE Instructions: Sinusitis ([facility]), Bronchitis ([facility]) Additional Instructions: HOME CARE INSTRUCTIONS & INFORMATION: Thank you for choosing us for your medical needs. We hope you're satisfied with the care you received. After you leave, you must properly care for your problem and, at the same time, observe its progress. Any condition can change. Some illnesses can change rapidly over hours or days. If your condition worsens, return to the Emergency Department or see your physician promptly. ABOUT YOUR X-RAYS AND EKG'S: If you had an EKG or X-rays taken, they have been read by the Emergency Physician. The X-rays and EKG's will also be read by a Radiologist or Auriculotherapist within 24 hours. If discrepancies are noted, you will be notified by telephone. Please be certain the ED has a correct telephone number & address where you can be reached. Also, realize that some fractures or abnormalities do not show up on initial X-rays. If your symptoms continue, see your physician. ABOUT YOUR LABORATORY TEST: If you had laboratory tests, the results have been reviewed by the Emergency Physician. Some test results (for example cultures) may not be available for several days. You will be contacted if any test result shows you need additional treatment. Please be certain the ED has a correct telephone number and address where you can be reached. ABOUT YOUR MEDICATIONS: You will receive instructions on how to take your medicine on the prescription label you receive. Additional information may be provided by the Pharmacy. If you have questions afterwards, call the ED for clarification or further instructions. Some prescribed medications may cause drowsiness. Do not perform tasks such as driving a car or operating machinery without consulting your Pharmacist. If you feel you need a refill of pain medication, your condition will need re-evaluation. Please do not call for a refill of any medication. ABOUT YOUR SIGNATURE: Signature of this document acknowledges to followin. Understanding that you received emergency treatment and that you may be released before al medical problems are known or treated. Please be certain the ED has a correct phone number & address where you can be reached. 2. Acknowledgement that you will arrange for follow-up care as recommended. 3. Authorization for the Emergency Physician to provide information to your follow-up Physician in order to maximize your care. AT ANY TIME, IF YOUR SYMPTOMS CHANGE SIGNIFICANTLY OR WORSEN OR YOU DEVELOP NEW SYMPTOMS, RETURN TO THE EMERGENCY DEPARTMENT IMMEDIATELY FOR RE-EVALUATION. OUR GOAL IS TO PROVIDE EXCELLENT MEDICAL CARE! WE HOPE THAT WE HAVE MET YOUR EXPECTATIONS DURING YOUR EMERGENCY DEPARTMENT VISIT AND THAT YOU FEEL YOU HAVE RECEIVED EXCELLENT CARE! Return to the Emergency Department without delay if any worse. Follow up with your primary care provider if symptoms fail to improve despite taking medications as prescribed. Prescriptions: Hydrocodone/Chlorphen P-Stirex [Hydrocodone-Chlorphen ER Susp] 5 ml PO QHS PRN #115 [id number] PRN Reason: Cough Prednisone [Deltasone] 60 mg PO DAILY 4 Days #12 tablet Cefdinir [Omnicef 300 mg Capsule] 2 cap PO DAILY 10 Days #20 capsule Forms: Return to Work
[2019-05-22] MEDS ORDERED: PREDNISONE 20 MG TABLET PO ONE (00:23)
[2019-05-22] MEDS ORDERED: HYDROCODONE/ACETAMINOPHEN 5-325 MG (6 TAB/ER DISP) PO PRN (00:23)
[2019-05-22] MEDS ORDERED: CEPHALEXIN 500 MG CAPSULE PO ONE (00:25)
[2019-05-22 00:30] VITALS: BP 144/85
== END 2019-05-22 00:50 | disposition home or self-care (01) ==
LOC: ER 17:41
DX: J98.8 Other specified respiratory disorders (principal); R05 Cough; I10 Essential (primary) hypertension; R09.89 Other specified symptoms and signs involving the circulatory and respiratory systems; J45.909 Unspecified asthma, uncomplicated; Z87.01 Personal history of pneumonia (recurrent); Z88.0 Allergy status to penicillin
CPT/HCPCS: 36415; 71046; 80053; 81001; 82550; 82553; 83690; 83880; 84484; 84703; 85025; 85610; 85730; 87086; 93005; 93010; J7512

== ENCOUNTER 2019-07-19 15:25 | Emergency (ER) | payer OTHER, BC ==
[2019-07-19] MEDS ORDERED: IBUPROFEN 800 MG TABLET PO ONE (16:03)
--- NOTE | 2019-07-19 16:08 | ER Document Report ---
HPI - HPI Patient complains to provider of: fall Time Seen by Provider: 07/19/19 15:59 Onset: Just prior to arrival Onset/Duration: Sudden Quality of pain: Achy Context: 44-year-old female presents emergency department with complaints of left hand left lower leg and left foot pain after she fell while working at [employer]. She reports she slipped and fell into the bread rack. Denies change in LOC. Denies other symptoms such as fever vomiting diarrhea. Unsure when her last tetanus was. She does have a small abrasion to the left lateral lower leg. Associated Symptoms: None Exacerbated by: Denies Relieved by: Denies Similar symptoms previously: No Recently seen / treated by doctor: No - REPRODUCTIVE Reproductive: DENIES: : Past Medical History - General Information source: Patient - Social History Smoking Status: Unknown if Ever Smoked Occupation: [employer] Lives with: Family Family History: Reviewed & Not Pertinent, DM, Hypertension - Past Medical History Cardiac Medical History: Reports: Hx Hypercholesterolemia - borderline, Hx Hypertension - borderline Denies: Hx Coronary Artery Disease, Hx Heart Attack Pulmonary Medical History: Reports: Hx Asthma - RAD w/ URI's, Hx Bronchitis, Hx Pneumonia Renal/ Medical History: Reports: Hx Kidney Stones. Denies: Hx Peritoneal Dialysis GI Medical History: Reports: Hx Gastroesophageal Reflux Disease Musculoskeletal Medical History: Denies Hx Arthritis Psychiatric Medical History: Denies: Hx Depression Past Surgical History: Reports: Hx Section, Hx Cholecystectomy, Hx Kid sapphire (Renal Surgery), Hx Orthopedic Surgery - BL anterior tibialis fasciotomy for compartment syndrome/ l finger surgery, Hx Pancreatic Surgery, Hx Tubal Ligation, Other - Her surgery and bilateral tubal ligation. Denies: Hx Appendectomy, Hx Hysterectomy, Hx Pacemaker - Immunizations Immunizations up to date: Yes Hx Diphtheria, Pertussis, Tetanus Vaccination: Yes Vertical Provider Document - CONSTITUTIONAL Agree With Documented VS: Yes Exam Limitations: No Limitations General Appearance: WD/WN, No Apparent Distress - INFECTION CONTROL TRAVEL OUTSIDE OF THE [place] IN LAST 30 DAYS: No - HEENT HEENT: Atraumatic, Normocephalic - NECK Neck: Supple - RESPIRATORY Respiratory: No Respiratory Distress - CARDIOVASCULAR Cardiovascular: Regular Rate - MUSCULOSKELETAL/EXTREMETIES Musculoskeletal/Extremeties: MAEW, FROM, Tender - Left hand tender to palpate no ecchymosis no swelling no obvious deformity cap refill less than 2 seconds good radial pulse Left lower leg laterally with an abrasion. Complains of area tender to palpate. Complains of pain to left foot. Both leg and foot no obvious deformity good pedal pulse cap refill less than 2 seconds. - NEURO Level of Consciousness: Awake, Alert, Appropriate Motor/Sensory: No Motor Deficit - DERM Integumentary: Warm, Dry Adult Front & Back Diagram: 1 - Small abrasion noted Course - Re-evaluation Re-evalutation: 07/19/19 16:06 Patient presents emergency department with complaints of left leg left hand and left foot pain after she fell while working at [employer]. X-rays ordered with Roseann. 07/19/19 16:56 Foot X-Ray 07/19/19 16:03 IMPRESSION: NO FRACTURE. Hand X-Ray 07/19/19 16:03 IMPRESSION: NEGATIVE STUDY OF THE LEFT HAND. NO RADIOGRAPHIC EVIDENCE OF ACUTE INJURY. Tibia/Fibula X-Ray 07/19/19 16:03 IMPRESSION: NO FRACTURE. 07/19/19 17:59 All x-rays negative. Patient was instructed on this instructed on tetanus and instructed on the importance of keeping the abrasion clean. She verbalized understanding to all instructions. - Vital Signs Vital signs: Temp Pulse Resp BP Pulse Ox 98.1 F 85 18 148/86 H 100 07/19/19 15:53 07/19/19 15:53 07/19/19 15:53 07/19/19 15:53 07/19/19 15:53 - Diagnostic Test Radiology reviewed: Image reviewed, Reports reviewed Discharge - Discharge Clinical Impression: Fall, Left hand pain, LEFT LOWER LEG AND FOOT PAIN, Abrasion Condition: Stable Disposition: HOME, SELF-CARE Instructions: Abrasions ([facility]), Use of Wchj-Wdl-Lrcocyt Ibuprofen ([facility]), Ice & Elevation ([facility]), Tetanus Immunization Given ([facility]) Additional Instructions: *You have been evaluated post fall for hand leg and foot pain Monitor the abrasion on the side of your leg for signs of infection such as redness swelling warmth increased pain. Keep the area clean *Rest/Ice/Elevate your hand foot and leg *Follow up with your primary care provider within 1 week for recheck *Take ibuprofen as indicated for pain *Return to ED for worsening condition, changes, needs Monitor your blood pressure. Your blood pressure was elevated today. This may be because you were anxious, in pain or because you need medication. It is important to follow up with your primary care provider for full evaluation. Forms: Elevated Blood Pressure, Return to Work
[2019-07-19] MEDS ORDERED: DIPH/PERTUSS(ACELL)/TETANUS VAC/PF 0.5 ML SYR (>=10YO) IM ONE (16:56)
--- NOTE | 2019-07-19 16:56 | RADIOLOGY REPORT (SQ) ---
EXAM DESCRIPTION: HAND LEFT 3 VIEWS COMPLETED DATE/TIME: 07/19/2019 4:44 pm REASON FOR STUDY: fall hand leg foot pain COMPARISON: Left hand radiographs 06/21/2018 EXAM PARAMETERS: NUMBER OF VIEWS: Three views. TECHNIQUE: AP, lateral and oblique radiographic images acquired of the left hand. LIMITATIONS: None. FINDINGS: MINERALIZATION: Normal. BONES: No acute fracture or dislocation. No worrisome bone lesions. JOINTS: No effusions. SOFT TISSUES: No soft tissue swelling. No foreign body. OTHER: No other significant finding. IMPRESSION: NEGATIVE STUDY OF THE LEFT HAND. NO RADIOGRAPHIC EVIDENCE OF ACUTE INJURY. TECHNICAL DOCUMENTATION: JOB ID: [id number] [employer]- All Rights Reserved Reading location - IP/workstation name: [email or web address]
--- NOTE | 2019-07-19 16:56 | RADIOLOGY REPORT (SQ) ---
EXAM DESCRIPTION: FOOT LEFT 2 VIEWS; TIBIA FIBULA LEFT COMPLETED DATE/TIME: 07/19/2019 4:44 pm REASON FOR STUDY: fall hand leg foot pain COMPARISON: None. EXAM PARAMETERS: NUMBER OF VIEWS: Five views. TECHNIQUE: AP, lateral and oblique radiographic images acquired of the left foot and left tibia -fib gianna. LIMITATIONS: None. FINDINGS: MINERALIZATION: Normal. BONES: No acute fracture or dislocation. No worrisome bone lesions. JOINTS: No effusion. SOFT TISSUES: No significant soft tissue swelling. No radiopaque foreign body. OTHER: No other significant finding. IMPRESSION: NO FRACTURE. TECHNICAL DOCUMENTATION: JOB ID: [id number] [place]-72 2010 [employer]- All Rights Reserved Reading location - IP/workstation name: [email or web address]
--- NOTE | 2019-07-19 16:56 | RADIOLOGY REPORT (SQ) ---
EXAM DESCRIPTION: FOOT LEFT 2 VIEWS; TIBIA FIBULA LEFT COMPLETED DATE/TIME: 07/19/2019 4:44 pm REASON FOR STUDY: fall hand leg foot pain COMPARISON: None. EXAM PARAMETERS: NUMBER OF VIEWS: Five views. TECHNIQUE: AP, lateral and oblique radiographic images acquired of the left foot and left tibia -fib gianna. LIMITATIONS: None. FINDINGS: MINERALIZATION: Normal. BONES: No acute fracture or dislocation. No worrisome bone lesions. JOINTS: No effusion. SOFT TISSUES: No significant soft tissue swelling. No radiopaque foreign body. OTHER: No other significant finding. IMPRESSION: NO FRACTURE. TECHNICAL DOCUMENTATION: JOB ID: [id number] [place]-72 2010 [employer]- All Rights Reserved Reading location - IP/workstation name: [email or web address]
[2019-07-19 17:44] VITALS: BP 151/74
== END 2019-07-19 18:08 | disposition home or self-care (01) ==
LOC: ER 15:25
DX: S80.812A Abrasion, left lower leg, initial encounter (principal); M79.672 Pain in left foot; M79.642 Pain in left hand; M79.662 Pain in left lower leg; W01.0XXA Fall on same level from slipping, tripping and stumbling without subsequent striking against object, initial encounter; Y92.511 Restaurant or cafe as the place of occurrence of the external cause; Y99.0 Civilian activity done for income or pay; Z23 Encounter for immunization; E78.00 Pure hypercholesterolemia, unspecified; I10 Essential (primary) hypertension
CPT/HCPCS: 90471; 90715; 99283

== ENCOUNTER 2019-09-07 04:46 | Emergency (ER) | payer BC, OTHER ==
--- NOTE | 2019-09-07 05:46 | ER Document Report ---
ED Flu Like - General Chief Complaint: Flu Symptoms Stated Complaint: FLU LIKE SYMPTOMS,FLANK PAIN Time Seen by Provider: 09/07/19 05:46 Primary Care Provider: YONI GUERIN MD [ACTIVE STAFF] - Follow up as needed Notes: CHIEF COMPLAINT: Cough and nausea for 1 day HPI: 44-year-old female presenting to the emergency department complaining of slight dry cough and nausea without vomiting or fever over the last 24 hours. Patient's boyfriend diagnosed with flu 2 to 3 days ago. Denies abdominal pain nausea vomiting or dysuria. Denies hematuria. Denies shortness of breath or chest pain ROS: See HPI - all other systems were reviewed and are otherwise negative Constitutional: no fever Eyes: no drainage, no blurred vision ENT: + runny nose, no sore throat Cardiovascular: no chest pain Resp: no SOB, + cough GI: no vomiting, no diarrhea, no abdominal pain, positive nausea : no dysuria Integumentary: no rash Allergy: no hives Musculoskeletal: no extremity pain or swelling Neurological: no numbness/tingling, no weakness MEDICATIONS: I agree with the patient medications as charted by the RN. ALLERGIES: I agree with the allergies as charted by the RN. PAST MEDICAL HISTORY/PAST SURGICAL HISTORY: Reviewed and agree as charted by RN. SOCIAL HISTORY: Reviewed and agree as charted by RN. FAMILY HISTORY: No significant familial comorbid conditions directly related to patient complaint EXAM: Reviewed vital signs as charted by RN. CONSTITUTIONAL: Alert and oriented and responds appropriately to questions. Well-appearing; well-nourished, no acute distress HEAD: Normocephalic; atraumatic EYES: PERRL; Conjunctivae clear, sclerae non-icteric ENT: normal nose; no rhinorrhea; moist mucous membranes; pharynx without lesions noted, no uvula edema or deviation, no tonsillar hypertrophy, phonation normal NECK: Supple without meningismus; non-tender; no cervical lymphadenopathy, no masses CARD: RRR; no murmurs, no clicks, no rubs, no gallops; symmetric distal pulses RESP: Normal chest excursion without splinting or tachypnea; breath sounds clear and equal bilaterally; no wheezes, no rhonchi, no rales, pulse oximetry 97% on room air not hypoxic ABD/GI: Obese, normal bowel sounds; non-distended; soft, non-tender, no rebound, no guarding; no palpable organomegaly or masses. BACK: The back appears normal and is non-tender to palpation, there is no CVA tenderness EXT: Normal ROM in all joints; non-tender to palpation; no cyanosis, no effusions, no edema SKIN: Normal color for age and race; warm; dry; good turgor; no acute lesions noted NEURO: Moves all extremities equally; Motor and sensory function intact PSYCH: The patient's mood and manner are appropriate. Grooming and personal hygiene are appropriate. MDM: 44-year-old female with flulike symptoms. Primarily complaining of nausea. Will give Zofran. Strep and flu test sent by nursing. Did discuss Tamiflu use with the patient she declines. Will await test results, if strep is positive will place on antibiotics if negative will discharge on Zofran per patient request TRAVEL OUTSIDE OF THE [place] IN LAST 30 DAYS: No - Related Data Allergies/Adverse Reactions: Penicillins Allergy (Verified 09/07/19 05:31) Hives Past Medical History - Social History Smoking Status: Never Smoker Family History: Reviewed & Not Pertinent, DM, Hypertension Patient has suicidal ideation: No Patient has homicidal ideation: No - Past Medical History Cardiac Medical History: Reports: Hx Hypercholesterolemia - borderline, Hx Hypertension - borderline Denies: Hx Coronary Artery Disease, Hx Heart Attack Pulmonary Medical History: Reports: Hx Asthma - RAD w/ URI's, Hx Bronchitis, Hx Pneumonia Renal/ Medical History: Reports: Hx Kidney Stones. Denies: Hx Peritoneal Dialysis GI Medical History: Reports: Hx Gastroesophageal Reflux Disease Musculoskeletal Medical History: Denies Hx Arthritis Psychiatric Medical History: Denies: Hx Depression Past Surgical History: Reports: Hx Section, Hx Cholecystectomy, Hx Kidney (Renal Surgery), Hx Orthopedic Surgery - BL anterior tibialis fasciotomy for compartment syndrome/ l finger surgery, Hx Pancreatic Surgery, Hx Tubal Ligation, Other - Her surgery and bilateral tubal ligation. Denies: Hx Appendectomy, Hx Hysterectomy, Hx Pacemaker - Immunizations Immunizations up to date: Yes Hx Diphtheria, Pertussis, Tetanus Vaccination: Yes Physical Exam - Vital signs Vitals: Temp Pulse Resp BP Pulse Ox 98 F 84 16 139/78 H 98 09/07/19 04:52 09/07/19 04:52 09/07/19 04:52 09/07/19 04:52 09/07/19 04:52 Course - Re-evaluation Re-evalutation: 09/07/19 06:22 Influenza and strep testing negative will discharge home with symptomatic treatment - Vital Signs Vital signs: Temp Pulse Resp BP Pulse Ox 98 F 84 16 139/78 H 98 09/07/19 04:52 09/07/19 04:52 09/07/19 04:52 09/07/19 04:52 09/07/19 04:52 Discharge - Discharge Clinical Impression: Influenza-like illness, Nausea Condition: Stable Disposition: HOME, SELF-CARE Additional Instructions: Take Zofran for nausea. Mucinex for cough. Strep and flu testing tonight was negative follow-up primary care provider for reevaluation return for concerns Prescriptions: Ondansetron [Zofran Odt 4 mg Tablet] 1 - 2 tab PO Q4H PRN #15 tab.rapdis PRN Reason: For Nausea/Vomiting Referrals: YONI GUERIN MD [ACTIVE STAFF] - Follow up as needed
[2019-09-07] MEDS ORDERED: ONDANSETRON 4 MG TAB.RAPDIS PO ONE (05:55)
[2019-09-07 06:15] LABS: A TYPE INFLUENZA AG NEGATIVE (NEGATIVE); B INFLUENZA AG NEGATIVE (NEGATIVE)
[2019-09-07 06:31] VITALS: BP 145/70
== END 2019-09-07 06:32 | disposition home or self-care (01) ==
LOC: ER 04:46
DX: J11.1 Influenza due to unidentified influenza virus with other respiratory manifestations (principal); R05 Cough; R11.0 Nausea; J45.909 Unspecified asthma, uncomplicated; Z87.01 Personal history of pneumonia (recurrent); Z88.0 Allergy status to penicillin
CPT/HCPCS: 99283; 87070; 87880; 87077; 87804; S0119

== ENCOUNTER → 2019-10-21 | Outpatient (CLI) | payer BC ==
--- NOTE | 2019-10-21 10:17 | WOMENS IMAGING REPORT ---
EXAM DESCRIPTION: BILAT SCREENING MAMMO W/CAD IMAGES COMPLETED DATE/TIME: 10/21/2019 9:31 am REASON FOR STUDY: Z12.31 SCREENING MAMMO Z12.31 ENCNTR SCREEN MAMMOGRAM FOR MALIGNANT NEOPLASM OF B RE COMPARISON: Baseline study EXAM PARAMETERS: Standard craniocaudal and mediolateral oblique views of each breast recorded using digital acquisition. Read with the assistance of CAD. .[facility] - [employer] Progress Clerk Version 9.2 LIMITATIONS: None. FINDINGS: No suspicious masses, suspicious calcifications or architectural distortion. No areas of c oncern. IMPRESSION: NEGATIVE MAMMOGRAM. BIRADS 1 BREAST DENSITY: a. The breasts are almost entirely fatty. BIRAD: ASSESSMENT: 1 NEGATIVE RECOMMENDATION: ROUTINE SCREENING COMMENT: The patient has been notified of the results by letter per MQSA requirements. Additional no tification policies are in place for contacting patient with suspicious or incomplete findings. Quality ID #225: The [employer] recommends an annual screening mammogram for women aged 40 years or over. This facility utilizes a reminder system to ensure that all patients receive reminder letters, and/or direct phone calls for appointments. This includes reminders for routine scr eening mammograms, diagnostic mammograms, or other Breast Imaging Interventions when appropriate. Th is patient will be placed in the appropriate reminder system. TECHNICAL DOCUMENTATION: FINDING NUMBER: (1) ASSESSMENT: (1) JOB ID: [id number] 2010 [employer]- All Rights Reserved Reading location - IP/workstation name: [email or web address]
== END ==
LOC: WI 08:30
PROVIDERS: ATTEND Nurse Practitioner Family
DX: Z12.31 Encounter for screening mammogram for malignant neoplasm of breast (principal)
CPT/HCPCS: 77067

== ENCOUNTER 2020-01-30 03:42 | Emergency (ER) | payer BC ==
[2020-01-30 04:31] LABS: ABSOLUTE BASOPHILS # (AUTO) 0.1 10^3/uL (0.0-0.2); ABSOLUTE EOSINOPHILS # (AUTO) 0.1 10^3/uL (0.0-0.6); ABSOLUTE LYMPHOCYTES (AUTO) 1.9 10^3/uL (0.5-4.7); ABSOLUTE MONOCYTES (AUTO) 0.4 10^3/uL (0.1-1.4); BASOPHILS % (AUTO) 0.8 % (0-2); EOSINOPHILS % (AUTO) 1.8 % (0-6); HEMATOCRIT 38.6 % (36.0-47.0); HEMOGLOBIN 12.9 g/dL (12.0-15.5); LYMPHOCYTES % (AUTO) 25.7 % (13-45); MEAN CORPUSCULAR HEMOGLOBIN 29.7 pg (27.0-33.4); MEAN CORPUSCULAR HGB CONC 33.3 g/dL (32.0-36.0); MEAN CORPUSCULAR VOLUME 89 fl (80-97); PLATELET COUNT 392 10^3/uL (150-450); RED BLOOD COUNT 4.33 10^6/uL (3.72-5.28); SEGMENTED NEUTROPHILS % (AUTO) 66.7 % (42-78); TOTAL CELLS COUNTED % (AUTO) 100 %; WHITE BLOOD COUNT 7.5 10^3/uL (4.0-10.5)
[2020-01-30 04:45] LABS: ALBUMIN 4.2 g/dL (3.5-5.0); ALKALINE PHOSPHATASE 123 U/L (38-126); ANION GAP 8 (5-19); ASPARTATE AMINO TRANSFERASE 21 U/L (14-36); BILIRUBIN,TOTAL 0.8 mg/dL (0.2-1.3); BLOOD UREA NITROGEN 12 mg/dL (7-20); CALCIUM 9.1 mg/dL (8.4-10.2); CARBON DIOXIDE 23 mmol/L (22-30); CHLORIDE 109 mmol/L (98-107); GLUCOSE 108 mg/dL (75-110); POTASSIUM 4.3 mmol/L (3.6-5.0); TOTAL PROTEIN 7.5 g/dL (6.3-8.2)
[2020-01-30] MEDS ORDERED: MORPHINE SULFATE 10 MG/ML INJ IV ONE (04:56)
[2020-01-30] MEDS ORDERED: ONDANSETRON HCL INJ/PF 4 MG/2 ML SDV IV ONE (04:56)
[2020-01-30] MEDS ORDERED: NORMAL SALINE 1000 ML 1,000 ML IV ONE (04:56)
[2020-01-30] MEDS ORDERED: KETOROLAC TROMETHAMINE INJ/PF 30 MG/1 ML SDV IV ONE ×2 (04:56→06:09)
[2020-01-30 04:57] LABS: APPEARANCE,URINE CLEAR; BILIRUBIN,URINE NEGATIVE (NEGATIVE); GLUCOSE, URINE NEGATIVE (NEGATIVE); KETONES,URINE NEGATIVE (NEGATIVE); LEUKOCYTE ESTERASE,URINE NEGATIVE (NEGATIVE); NITRITE,URINE NEGATIVE (NEGATIVE); PROTEIN,URINE >=500 mg/dL (NEGATIVE); URINE SPECIFIC GRAVITY 1.029; UROBILINOGEN,URINE NEGATIVE mg/dL (<2.0)
[2020-01-30 04:58] LABS: COLOR,URINE RED
--- NOTE | 2020-01-30 05:00 | ER Document Report ---
ED GI/ - General Chief Complaint: Flank Pain Stated Complaint: POSSIBLE KIDNEY STONES Time Seen by Provider: 01/30/20 04:54 Primary Care Provider: TWIN BAILEY FNP [Primary Care Provider] - Follow up as needed Notes: Patient is a 44-year-old female that comes to the emergency department for chief complaint of sudden onset right flank pain that woke her from her sleep. Pain radiates around to the right mid to lower abdomen. She reports nausea but denies vomiting. She states she has passed kidney stones several times previously and this feels the same. She denies ever having stent or surgical removal of stones, she does not currently have a urologist. She denies any other complaints including dysuria, fever, vaginal discharge although she does report she is currently on her menstrual cycle. TRAVEL OUTSIDE OF THE [place] IN LAST 30 DAYS: No - Related Data Allergies/Adverse Reactions: Penicillins Allergy (Verified 09/07/19 05:31) Hives Home Medications: lexapro. losartin Past Medical History - General Information source: Patient - Social History Smoking Status: Never Smoker Chew tobacco use (# tins/day): No Frequency of alcohol use: None Drug Abuse: None Lives with: Family Family History: Reviewed & Not Pertinent, DM, Hypertension Patient has homicidal ideation: No - Past Medical History Cardiac Medical History: Reports: Hx Hypercholesterolemia - borderline, Hx Hypertension - borderline Denies: Hx Coronary Artery Disease, Hx Heart Attack Pulmonary Medical History: Reports: Hx Asthma - RAD w/ URI's, Hx Bronchitis, Hx Pneumonia Renal/ Medical History: Reports: Hx Kidney Stones. Denies: Hx Peritoneal Dialysis GI Medical History: Reports: Hx Gastroesophageal Reflux Disease Musculoskeletal Medical History: Denies Hx Arthritis Psychiatric Medical History: Denies: Hx Depression Past Surgical History: Reports: Hx Section, Hx Cholecystectomy, Hx Kidney (Renal Surgery), Hx Orthopedic Surgery - BL anterior tibialis fasciotomy for compartment syndrome/ l finger surgery, Hx Pancreatic Surgery, Hx Tubal Ligation, Other - Her surgery and bilateral tubal ligation. Denies: Hx Appendectomy, Hx Hysterectomy, Hx Pacemaker - Immunizations Immunizations up to date: Yes Hx Diphtheria, Pertussis, Tetanus Vaccination: Yes Review of Systems - Review of Systems Constitutional: No symptoms reported EENT: No symptoms reported Cardiovascular: No symptoms reported Respiratory: No symptoms reported Gastrointestinal: See HPI Genitourinary: See HPI Female Genitourinary: No symptoms reported Musculoskeletal: No symptoms reported Skin: No symptoms reported Hematologic/Lymphatic: No symptoms reported Neurological/Psychological: No symptoms reported Physical Exam - Vital signs Vitals: Temp Pulse Resp BP Pulse Ox 98.0 F 80 22 H 156/84 H 97 01/30/20 03:52 01/30/20 03:52 01/30/20 03:52 01/30/20 03:52 01/30/20 03:52 - Notes Notes: GENERAL: Patient appears to be in pain, holding her right side, restless, moderate distress HEAD: Normocephalic, atraumatic. EYES: Pupils equal, round, and reactive to light. Extraocular movements intact. ENT: Oral mucosa moist, tongue midline. Oropharynx unremarkable. Airway patent. NECK: Full range of motion. Supple. Trachea midline. No lymphadenopathy. LUNGS: Clear to auscultation bilaterally, no wheezes, rales, or rhonchi. No respiratory distress. Non-tender chest wall. HEART: Regular rate and rhythm. No murmur ABDOMEN: Soft, non-tender. Non-distended. Bowel sounds present in all 4 quadra nts. GENITOURINARY: Deferred EXTREMITIES: Moves all 4 extremities spontaneously. No edema, normal radial and dorsalis pedis pulses bilaterally. No cyanosis. BACK: Right CVA tenderness. No cervical, thoracic, lumbar midline tenderness. No saddle anesthesia, normal distal neurovascular exam. Moves all extremities in full range of motion. NEUROLOGICAL: Alert and oriented x3. Normal speech. Cranial nerves II through XII grossly intact. Strength 5/5 in all extremities. PSYCH: Normal affect, normal mood. SKIN: Warm, dry, normal turgor. No rashes or lesions noted. Course - Re-evaluation Re-evalutation: CBC unremarkable, chemistry unremarkable, urinalysis shows blood but patient is also on her menstrual cycle. No overt infection. KUB performed and shows no large stone or obvious abnormality. I had discussed in detail with patient, decision was made to not perform CAT scan because she does not have signs of infection, and it is reassuring that we cannot visualize a large stone on KUB. Patient reevaluated after treatment, symptoms have resolved, patient is very well-appearing. I strongly suspect the passing stone based on her evaluation, patient will be discharged with medications, urology follow-up, and return preca utions which were discussed. Patient states appreciation and agreement with plan. Stable and well-appearing at time of discharge. - Vital Signs Vital signs: Temp Pulse Resp BP Pulse Ox 97.8 F 68 14 148/82 H 98 01/30/20 06:23 01/30/20 06:23 01/30/20 06:23 01/30/20 06:23 01/30/20 06:23 - Laboratory Result Diagrams: 01/30/20 04:10 01/30/20 04:10 Laboratory results interpreted by me: 01/30/20 01/30/20 01/30/20 04:10 04:10 04:10 RDW 15.0 H Chloride 109 H Urine Protein >=500 H Urine Blood LARGE H Discharge - Discharge Clinical Impression: Right flank pain Condition: Stable Disposition: HOME, SELF-CARE Additional Instructions: Your evaluation is consistent with passing a kidney stone on the right side. Take the pain medication as prescribed if needed, take the nausea medication if needed, you can take 600 mg of ibuprofen along with this every 6 hours. Drink plenty of fluids. Follow-up with the urology referral listed. Return if you worsen including fever, severe worsening pain, uncontrolled vomiting, or any other concerning or worsening symptoms. [facility] [address] [place], [place] [id number] [facility] [address] [place], [place] [id number] Prescriptions: Oxycodone HCl/Acetaminophen [Percocet 5-325 mg Tablet] 1 tab PO TID PRN #15 tab PRN Reason: Ondansetron [Zofran Odt 4 mg Tablet] 1 - 2 tab PO Q4H PRN #15 tab.rapdis PRN Reason: For Nausea/Vomiting Forms: Return to Work Referrals: TWIN BAILEY FNP [Primary Care Provider] - Follow up as needed
--- NOTE | 2020-01-30 05:53 | RADIOLOGY REPORT (SQ) ---
EXAM DESCRIPTION: XR ABDOMEN 1 VIEW (KUB) COMPLETED DATE/TME: 01/30/2020 04:57 CLINICAL HISTORY: large right sided ureterolithiasis COMPARISON: None. FINDINGS: Bowel: No dilated loops of large or small bowel. Peritoneum: No free intraperitoneal air identified. Solid organs: No definite organomegaly. Calcifications: Calcified structure in the pelvis likely represents a phlebolith. No calcifications overlying the kidneys. Bones: No acute osseous abnormalities. IMPRESSION: 1. Nonobstructive bowel gas pattern. No definite calcifications overlying the kidneys.
[2020-01-30] MEDS ORDERED: HYDROCODONE/ACETAMINOPHEN 5-325 MG (6 TAB/ER DISP) PO PRN (06:09)
[2020-01-30] MEDS ORDERED: ONDANSETRON ODT 4 MG TAB (6 TAB/ER DISP) PO PRN (06:09)
[2020-01-30 06:23] VITALS: BP 148/82
== END 2020-01-30 06:32 | disposition home or self-care (01) ==
LOC: ER 03:42
DX: R10.9 Unspecified abdominal pain (principal); E78.00 Pure hypercholesterolemia, unspecified; I10 Essential (primary) hypertension; Z88.0 Allergy status to penicillin; Z87.442 Personal history of urinary calculi; Z90.49 Acquired absence of other specified parts of digestive tract
CPT/HCPCS: 96376; 99284; 96361; 96374; 96375; 36415; 83690; 84703; 85025; 80053; 81001; 74018; J1885; J2270; J2405; J7030

== ENCOUNTER 2020-02-04 01:15 | Emergency (ER) | payer BC ==
[2020-02-04 02:54] LABS: ABSOLUTE BASOPHILS # (AUTO) 0.1 10^3/uL (0.0-0.2); ABSOLUTE EOSINOPHILS # (AUTO) 0.1 10^3/uL (0.0-0.6); ABSOLUTE LYMPHOCYTES (AUTO) 1.9 10^3/uL (0.5-4.7); ABSOLUTE MONOCYTES (AUTO) 0.5 10^3/uL (0.1-1.4); BASOPHILS % (AUTO) 0.9 % (0-2); EOSINOPHILS % (AUTO) 1.6 % (0-6); HEMATOCRIT 35.1 % (36.0-47.0); HEMOGLOBIN 11.6 g/dL (12.0-15.5); LYMPHOCYTES % (AUTO) 21.9 % (13-45); MEAN CORPUSCULAR HEMOGLOBIN 29.4 pg (27.0-33.4); MEAN CORPUSCULAR HGB CONC 33.1 g/dL (32.0-36.0); MEAN CORPUSCULAR VOLUME 89 fl (80-97); MONOCYTES % (AUTO) 5.5 % (3-13); PLATELET COUNT 369 10^3/uL (150-450); RED BLOOD COUNT 3.95 10^6/uL (3.72-5.28); RED CELL DISTRIBUTION WIDTH 14.9 % (11.5-14.0); SEGMENTED NEUTROPHILS % (AUTO) 70.1 % (42-78); TOTAL CELLS COUNTED % (AUTO) 100 %; WHITE BLOOD COUNT 8.6 10^3/uL (4.0-10.5)
[2020-02-04 03:01] LABS: APPEARANCE,URINE CLOUDY; BILIRUBIN,URINE NEGATIVE (NEGATIVE); CALCIUM OXALATE CRYSTALS,URINE RARE /HPF; COLOR,URINE YELLOW; GLUCOSE, URINE NEGATIVE (NEGATIVE); KETONES,URINE NEGATIVE (NEGATIVE); LEUKOCYTE ESTERASE,URINE TRACE (NEGATIVE); NITRITE,URINE NEGATIVE (NEGATIVE); PROTEIN,URINE 100 mg/dL (NEGATIVE); URINE SPECIFIC GRAVITY 1.025; UROBILINOGEN,URINE NEGATIVE mg/dL (<2.0)
[2020-02-04 03:10] LABS: ALBUMIN 4.2 g/dL (3.5-5.0); ALKALINE PHOSPHATASE 102 U/L (38-126); ANION GAP 5 (5-19); ASPARTATE AMINO TRANSFERASE 28 U/L (14-36); BILIRUBIN,TOTAL 0.5 mg/dL (0.2-1.3); BLOOD UREA NITROGEN 14 mg/dL (7-20); CARBON DIOXIDE 29 mmol/L (22-30); CHLORIDE 106 mmol/L (98-107); GLUCOSE 115 mg/dL (75-110); POTASSIUM 4.5 mmol/L (3.6-5.0); TOTAL PROTEIN 7.1 g/dL (6.3-8.2)
--- NOTE | 2020-02-04 07:41 | ER Document Report ---
Entered by ENEDINA GUZMÁN SCRIBE 02/04/20 0715 Acting as scribe for:NORA LATHAM MD ED GI/ - General Chief Complaint: Possible Kidney Stone Stated Complaint: LOWER RIGHT ABDOMINAL PAIN Time Seen by Provider: 02/04/20 07:01 Primary Care Provider: [facility] KRISHNANY NICOLE [Provider Group] - Follow up as needed Mode of Arrival: Ambulatory Information source: Patient Notes: This 44 year old female patient presents to the emergency department today with complaints of abdominal pain. Patient has a history of kidney stones and she was seen here on 01/29 and she had hematuria, diagnosed with kidney stone. Patient reports that she had been okay the last few days but mentions that last night around 8:00 PM she began having symptoms "like a bladder infection". Patient complains of nausea but denies vomiting or fevers. TRAVEL OUTSIDE OF THE [place] IN LAST 30 DAYS: No - Related Data Allergies/Adverse Reactions: Penicillins Allergy (Verified 02/04/20 02:15) Hives Home Medications: HTN. DEPRESSION. PERCOCET Past Medical History - General Information source: Patient, [facility] Records - Social History Smoking Status: Never Smoker Cigarette use (# per day): No Frequency of alcohol use: None Drug Abuse: None Lives with: Family Family History: Reviewed & Not Pertinent, DM, Hypertension Patient has homicidal ideation: No - Past Medical History Cardiac Medical History: Reports: Hx Hypercholesterolemia - borderline, Hx Hypertension - borderline Pulmonary Medical History: Reports: Hx Asthma - RAD w/ URI's, Hx Bronchitis, Hx Pneumonia Renal/ Medical History: Reports: Hx Kidney Stones GI Medical History: Reports: Hx Gastroesophageal Reflux Disease Past Surgical History: Reports: Hx Section, Hx Cholecystectomy, Hx Kidney (Renal Surgery), Hx Orthopedic Surgery - BL anterior tibialis fasciotomy for compartment syndrome/ l finger surgery, Hx Pancreatic Surgery, Hx Tubal Ligation, Other - Her surgery and bilateral tubal ligation - Immunizations Immunizations up to date: Yes Hx Diphtheria, Pertussis, Tetanus Vaccination: Yes Review of Systems - Review of Systems Constitutional: denies: Fever EENT: No symptoms reported Cardiovascular: No symptoms reported Respiratory: No symptoms reported Gastrointestinal: See HPI, Abdominal pain, Nausea. denies: Vomiting Genitourinary: denies: Flank pain Female Genitourinary: See HPI, Last menstrual period - ended 3 days ago Musculoskeletal: No symptoms reported Skin: No symptoms reported Hematologic/Lymphatic: No symptoms reported Neurological/Psychological: No symptoms reported -: Yes All other systems reviewed and negative Physical Exam - Vital signs Vitals: Temp Pulse Resp BP Pulse Ox 98.4 F 59 L 16 156/86 H 100 02/04/20 01:24 02/04/20 01:24 02/04/20 01:24 02/04/20 01:24 02/04/20 01:24 - Notes Notes: Physical Exam: General: Alert, appears well. HEENT: Normocephalic. Atraumatic. PERRL. Extraocular movements intact. Oropharynx clear. Neck: Supple. Non-tender. Respiratory: No respiratory distress. Clear and equal breath sounds bilaterally. Cardiovascular: Regular rate and rhythm. Abdominal: Obese. Right lower quadrant and suprapubic tenderness to palpation. No distension. Normal Bowel Sounds. Back: No gross abnormalities. Extremities: Moves all four extremities. Upper extremities: Normal inspection. Normal ROM. Lower extremities: Normal inspection. No edema. Normal ROM. Neurological: Normal cognition. AAOx4. Normal speech. Psychological: Normal affect. Normal Mood. Skin: Warm. Dry. Normal color. Course - Vital Signs Vital signs: Temp Pulse Resp BP Pulse Ox 98.2 F 68 14 153/71 H 100 02/04/20 04:40 02/04/20 04:40 02/04/20 04:40 02/04/20 04:40 02/04/20 04:40 - Laboratory Result Diagrams: 02/04/20 02:30 02/04/20 02:30 Laboratory results interpreted by me: 02/04/20 02/04/20 02/04/20 02:30 02:30 02:30 Hgb 11.6 L Hct 35.1 L RDW 14.9 H Glucose 115 H Urine Protein 100 H Urine Blood LARGE H Ur Leukocyte Esterase TRACE H - Diagnostic Test Radiology reviewed: Image reviewed, Reports reviewed - CT scan abdomen pelvis shows a new moderate right hydronephrosis and hydroureter to the level of a 5 mm right mid ureteral stone. There is bilateral nephrolithiasis. Discharge - Discharge Clinical Impression: Renal colic on right side, Ureteral stone with hydronephrosis Condition: Stable Disposition: HOME, SELF-CARE Additional Instructions: Kidney Stone You are passing a kidney stone. These stones are usually due to increased calcium or uric acid concentrations in your urine. Stones within the kidney itself are not painful. The pain occurs as the stone leaves the kidney to pass down the long tube, called the ureter, leading to the bladder. If the stone is small, it will usually pass by itself. Most patients can pass the stone at home. You will usually receive medications for pain, nausea or vomiting, and sometimes a medication to assist in passing the kidney stone. However, if the pain is very severe or if vomiting prevents you from taking oral pain medications, you may need to return for further treatment. Drink three or four quarts of fluids per day. You will be given pain medication (if needed) and urine strainers. Strain all your urine to see if the stone passes. If your doctor has asked you to bring the stone in for analysis, return with the stone once it has passed. Return if pain or vomiting become severe, if you develop a high fever, if you are unable to pass your urine, or if other unusual symptoms occur. Take the pain and nausea medicine as needed. Start the Flomax tomorrow. Drink plenty of fluids. Follow-up with [facility] if the stone does not pass. RETURN TO THE EMERGENCY ROOM IF ANY NEW OR WORSENING SYMPTOMS. Prescriptions: Tamsulosin HCl [Flomax 0.4 mg Cap.sr] 0.4 mg PO DAILY #7 cap.sr.24h Oxycodone HCl/Acetaminophen [Percocet 5-325 mg Tablet] 1 tab PO ASDIR PRN #15 tablet PRN Reason: Ondansetron [Zofran Odt 4 mg Tablet] 1 - 2 tab PO Q4H PRN #15 tab.rapdis PRN Reason: Referrals: ADE[facility] KRISHNANY NICOLE [Provider Group] - Follow up as needed I personally performed the services described in the documentation, reviewed and edited the documentation which was dictated to the scribe in my presence, and it accurately records my words and actions.
--- NOTE | 2020-02-04 07:56 | RADIOLOGY REPORT (SQ) ---
CT abdomen and pelvis without contrast on 02/04/2020 at 7:22 AM CLINICAL INDICATION: Right lower quadrant pain, hematuria, history of kidney stones TECHNIQUE: Multiple axial images are obtained throughout the abdomen and pelvis without the administration of contrast. This exam was performed according to our departmental dose-optimization program, which includes automated exposure control, adjustment of the mA and/or kV according to patient size and/or use of iterative reconstruction technique. Total DLP is 922.73 mGy*cm. COMPARISON: 04/09/2016 FINDINGS: Abdomen: The lung bases are clear. The patient is status post cholecystectomy. There are small nonobstructing bilateral renal stones with the largest stone on the right measuring 5-6 mm. There is new moderate right hydronephrosis and hydroureter to the level of a 5 mm right mid ureteral stone at the pelvic inlet. There are no other ureteral stones. There is mild right perinephric and proximal periureteral stranding related to the obstruction. The unenhanced solid abdominal organs are otherwise unremarkable. There is no abdominal adenopathy. There is no free fluid or free air within the abdomen. The abdominal portion of the GI tract is unremarkable. Pelvis: Pelvic organs appear unremarkable by CT. No free fluid is noted in the pelvis. There is no pelvic adenopathy. The pelvic portion of the GI tract including the appendix is unremarkable. No bony abnormality is noted. IMPRESSION: 1. New moderate right hydronephrosis and hydroureter to the level of a 5 mm right mid ureteral stone at the pelvic inlet. 2. Bilateral nephrolithiasis.
[2020-02-04] MEDS ORDERED: KETOROLAC TROMETHAMINE 60 MG/2 ML SDV IM ONE (08:22)
[2020-02-04] MEDS ORDERED: TAMSULOSIN HCL 0.4 MG CAP.SR.24H PO ONE (08:35)
[2020-02-04] MEDS ORDERED: ONDANSETRON 4 MG TAB.RAPDIS PO ONE (08:36)
[2020-02-04 09:24] VITALS: BP 143/73
== END 2020-02-04 09:25 | disposition home or self-care (01) ==
LOC: ER 01:15
DX: N13.2 Hydronephrosis with renal and ureteral calculous obstruction (principal); R10.31 Right lower quadrant pain; E78.00 Pure hypercholesterolemia, unspecified; Z87.442 Personal history of urinary calculi
CPT/HCPCS: 99284; 96372; 36415; 83690; 85025; 80053; 81001; 74176; J1885; S0119

== ENCOUNTER 2020-02-14 05:09 | Emergency (ER) | payer BC ==
[2020-02-14] MEDS ORDERED: KETOROLAC TROMETHAMINE INJ/PF 30 MG/1 ML SDV IV ONE (06:10)
[2020-02-14] MEDS ORDERED: ONDANSETRON HCL INJ/PF 4 MG/2 ML SDV IV ONE (06:10)
[2020-02-14 06:44] LABS: APPEARANCE,URINE SLIGHTLY-CLOUDY; BILIRUBIN,URINE NEGATIVE (NEGATIVE); COLOR,URINE YELLOW; GLUCOSE, URINE NEGATIVE (NEGATIVE); KETONES,URINE NEGATIVE (NEGATIVE); LEUKOCYTE ESTERASE,URINE NEGATIVE (NEGATIVE); NITRITE,URINE NEGATIVE (NEGATIVE); PROTEIN,URINE 30 mg/dL (NEGATIVE); URINE SPECIFIC GRAVITY 1.029; UROBILINOGEN,URINE NEGATIVE mg/dL (<2.0)
[2020-02-14] MEDS ORDERED: MORPHINE SULFATE 10 MG/ML INJ IV ONE (06:44)
[2020-02-14 07:13] LABS: ALBUMIN 4.5 g/dL (3.5-5.0); ALKALINE PHOSPHATASE 98 U/L (38-126); ANION GAP 9 (5-19); ASPARTATE AMINO TRANSFERASE 48 U/L (14-36); BILIRUBIN,TOTAL 0.6 mg/dL (0.2-1.3); BLOOD UREA NITROGEN 16 mg/dL (7-20); CALCIUM 9.1 mg/dL (8.4-10.2); CARBON DIOXIDE 22 mmol/L (22-30); CHLORIDE 107 mmol/L (98-107); GLUCOSE 115 mg/dL (75-110); POTASSIUM 4.8 mmol/L (3.6-5.0); TOTAL PROTEIN 7.6 g/dL (6.3-8.2)
[2020-02-14] MEDS ORDERED: HYDROMORPHONE HCL INJ/PF 2 MG/ML AMPULE IV ONE (10:09)
--- NOTE | 2020-02-14 10:11 | ER Document Report ---
ED General - General Chief Complaint: Possible Kidney Stone Stated Complaint: POSSIBLE KIDNEY STONES Primary Care Provider: BORIS SERNA MD [Primary Care Provider] - Follow up as needed Notes: Patient is a 44-year-old white female with a history of hypertension who was seen here twice previously this month for kidney stone and urinary infection who presents back to the emergency department with complaints of worsening pain. The patient states that she had a 5 mm stone in the right ureter that was slowly progressing distal towards the bladder. She states that she was given pain medicines and referred to urology. Is seeing a local urologist who is managing her outpatient medications. She states they advised the lower 1 near the UPJ is too low for lithotripsy but she states they plan to "laser" in the lower 1 and will monitor the remainder of the nephrolithiasis. The patient reports that last night she started having a very severe pain on the right CVA area and thinks 1 of the other stones may be getting to pass as well. States this was worse than her prior pains. States the home Percocet she is using was not helping much. She denies any vaginal bleeding or discharge. No vomiting or diarrhea. No dysuria or visible hematuria. No overt abdominal pain. No fevers chills or night sweats. TRAVEL OUTSIDE OF THE [place] IN LAST 30 DAYS: No - Related Data Allergies/Adverse Reactions: Penicillins Allergy (Verified 02/04/20 02:15) Hives Past Medical History - Social History Smoking Status: Never Smoker Family History: Reviewed & Not Pertinent, DM, Hypertension - Past Medical History Cardiac Medical History: Reports: Hx Hypercholesterolemia - borderline, Hx Hypertension - borderline Denies: Hx Coronary Artery Disease, Hx Heart Attack Pulmonary Medical History: Reports: Hx Asthma - RAD w/ URI's, Hx Bronchitis, Hx Pneumonia Renal/ Medical History: Reports: Hx Kidney Stones. Denies: Hx Peritoneal Dialysis GI Medical History: Reports: Hx Gastroesophageal Reflux Disease Musculoskeletal Medical History: Denies Hx Arthritis Psychiatric Medical History: Denies: Hx Depression Past Surgical History: Reports: Hx Section, Hx Cholecystectomy, Hx Kidney (Renal Surgery), Hx Orthopedic Surgery - BL anterior tibialis fasciotomy for compartment syndrome/ l finger surgery, Hx Pancreatic Surgery, Hx Tubal Ligation, Other - Her surgery and bilateral tubal ligation. Denies: Hx Appendectomy, Hx Hysterectomy, Hx Pacemaker - Immunizations Immunizations up to date: Yes Hx Diphtheria, Pertussis, Tetanus Vaccination: Yes Review of Systems - Review of Systems Constitutional: denies: Fever EENT: denies: Throat pain Cardiovascular: denies: Chest pain Respiratory: denies: Short of breath Gastrointestinal: denies: Abdominal pain Genitourinary: Flank pain Female Genitourinary: denies: Vaginal discharge Musculoskeletal: Back pain Skin: denies: Change in color Hematologic/Lymphatic: denies: Easy bleeding Neurological/Psychological: denies: Headaches Physical Exam - Vital signs Vitals: Temp Pulse Resp BP Pulse Ox 98.3 F 81 20 152/78 H 97 02/14/20 05:51 02/14/20 05:51 02/14/20 05:51 02/14/20 05:51 02/14/20 05:51 - General General appearance: Appears well, Alert In distress: None - HEENT Head: Normocephalic, Atraumatic Neck: Supple - Respiratory Respiratory status: No respiratory distress Chest status: Nontender Breath sounds: Normal Chest palpation: Normal - Cardiovascular Rhythm: Regular Heart sounds: Normal auscultation - Abdominal Inspection: Normal Distension: No distension Bowel sounds: Normal Tenderness: Nontender Organomegaly: No organomegaly - Back Back: CVA tenderness - Right - Neurological Neuro grossly intact: Yes Cognition: Normal Orientation: AAOx4 - Psychological Associated symptoms: Normal affect, Normal mood - Skin Skin Temperature: Warm Skin Moisture: Dry Skin Color: Normal Course - Re-evaluation Re-evalutation: 02/14/20 11:01 CT scan showing distal right ureteral stone and about the same place as prior. Significant right-sided hydronephrosis and hydroureter. Patient has Percocet 5 mg. She will try to double up on the Percocet to help control the pain as needed for severe pain spikes. She has Zofran at home. No other acute changes seen otherwise. Urinalysis without evidence of infection. Patient has appointment on Saturday, in 2 days with the urologist for definitive plan and care. She will call Saturday morning to alert them of her return here for any further guidance or earlier appointment. She understands importance of the follow-up with urologist and I advised that she return here any ER immediately with any new, persistent or worsening symptoms. She verbalized understood and agreed. - Vital Signs Vital signs: Temp Pulse Resp BP Pulse Ox 98.3 F 81 20 152/78 H 97 02/14/20 05:51 02/14/20 05:51 02/14/20 05:51 02/14/20 05:51 02/14/20 05:51 - Laboratory Result Diagrams: 02/14/20 10:10 02/14/20 06:26 Laboratory results interpreted by me: 02/14/20 02/14/20 02/14/20 06:10 06:26 10:10 Hgb 11.8 L Hct 35.4 L RDW 15.1 H Glucose 115 H AST 48 H ALT 72 H Urine Protein 30 H Urine Blood MODERATE H Discharge - Discharge Clinical Impression: Ureteral stone with hydronephrosis, Hydroureter, Nephrolithiasis, Renal colic Condition: Stable Disposition: HOME, SELF-CARE Instructions: Kidney Stone ([facility]) Additional Instructions: Please see your urologist as scheduled on Saturday. Please return here or any ER immediately with any new, persistent or worsening symptoms. Referrals: BORIS SERNA MD [Primary Care Provider] - Follow up as needed
[2020-02-14 10:43] LABS: ABSOLUTE BASOPHILS # (AUTO) 0.1 10^3/uL (0.0-0.2); ABSOLUTE EOSINOPHILS # (AUTO) 0.1 10^3/uL (0.0-0.6); ABSOLUTE LYMPHOCYTES (AUTO) 1.5 10^3/uL (0.5-4.7); ABSOLUTE MONOCYTES (AUTO) 0.6 10^3/uL (0.1-1.4); ABSOLUTE NEUT (AUTO) 6.7 10^3/uL (1.7-8.2); BASOPHILS % (AUTO) 0.6 % (0-2); EOSINOPHILS % (AUTO) 1.2 % (0-6); HEMATOCRIT 35.4 % (36.0-47.0); HEMOGLOBIN 11.8 g/dL (12.0-15.5); LYMPHOCYTES % (AUTO) 17.1 % (13-45); MEAN CORPUSCULAR HEMOGLOBIN 29.8 pg (27.0-33.4); MEAN CORPUSCULAR HGB CONC 33.4 g/dL (32.0-36.0); MEAN CORPUSCULAR VOLUME 89 fl (80-97); MONOCYTES % (AUTO) 6.9 % (3-13); PLATELET COUNT 298 10^3/uL (150-450); RED BLOOD COUNT 3.97 10^6/uL (3.72-5.28); RED CELL DISTRIBUTION WIDTH 15.1 % (11.5-14.0); SEGMENTED NEUTROPHILS % (AUTO) 74.2 % (42-78); TOTAL CELLS COUNTED % (AUTO) 100 %
--- NOTE | 2020-02-14 10:53 | RADIOLOGY REPORT (SQ) ---
EXAM DESCRIPTION: CT ABD/PELVIS NO ORAL OR IV IMAGES COMPLETED DATE/TIME: 02/14/2020 10:41 am REASON FOR STUDY: worsening R flank pain COMPARISON: 02/04/2020. TECHNIQUE: CT scan of the abdomen and pelvis performed without intravenous or oral contrast. Images reviewed with lung, soft tissue, and bone windows. Reconstructed coronal and sagittal MPR images revi ewed. All images stored on PACS. All CT scanners at this facility use dose modulation, iterative reconstruction, and/or weight based d osing when appropriate to reduce radiation dose to as low as reasonably achievable (ALARA). [facility]: Dose Right [facility]: CareDose [facility]: Dose Right [facility]: Teradose 4D [facility]: Smart [employer] Software RADIATION DOSE: CT Rad equipment meets quality standard of care and radiation dose reduction techniq ues were employed. CTDIvol: 17.1 mGy. DLP: 943 mGy-cm.mGy. LIMITATIONS: None. FINDINGS: LOWER CHEST: Mild cardiomegaly. No developing pulmonary infiltrates. NON-CONTRASTED LIVER, SPLEEN, ADRENALS: Evaluation limited by lack of IV contrast. No identified sign ificant masses. PANCREAS: No masses. No peripancreatic inflammatory changes. GALLBLADDER: Surgically absent. RIGHT KIDNEY AND URETER: Marked hydronephrosis and distension of the renal pelvis and right ureter. This is to the level of a ureteral stone in the right hemipelvis, as seen previously. This measures at least 4 mm in the axial plane, 5 mm craniocaudal. LEFT KIDNEY AND URETER: Nonobstructive left nephrolithiasis. AORTA AND RETROPERITONEUM: No aneurysm. No retroperitoneal masses or adenopathy. BOWEL AND PERITONEAL CAVITY: No obvious masses or inflammatory changes. No free fluid. APPENDIX: Not visualized. PELVIS, BLADDER, AND ABDOMINAL WALL:No abnormal masses. No free fluid. Bladder normal. BONES: No significant findings. OTHER: No other significant finding. IMPRESSION: 1. Pronounced right hydronephrosis due to a distal ureteral stone, no significant change suggested. TECHNICAL DOCUMENTATION: JOB ID: [id number] Quality ID # [id number]: Final reports with documentation of one or more dose reduction techniques (e.g., Au tomated exposure control, adjustment of the mA and/or kV according to patient size, use of iterative reconstruction technique) 2010 [email or web address]- All Rights Reserved Reading location - IP/workstation name: [email or web address]
[2020-02-14 11:08] VITALS: BP 138/76
== END 2020-02-14 11:25 | disposition home or self-care (01) ==
LOC: ER 05:09
DX: N13.2 Hydronephrosis with renal and ureteral calculous obstruction (principal)
CPT/HCPCS: 99284; 96374; 96375; 36415; 83690; 84703; 85025; 80053; 81001; 74176; J1885; J2270; J1170; J2405

== ENCOUNTER 2020-02-23 23:18 | Emergency (ER) | payer BC ==
--- NOTE | 2020-02-24 02:03 | ER Document Report ---
ED GI/ - General Chief Complaint: Flank Pain Stated Complaint: FLANK PAIN/POST OP PAIN Time Seen by Provider: 02/24/20 01:54 Notes: Patient is a 44-year-old female who presents the emergency department with a chief complaint of right flank pain. Patient states that she had a lithotripsy and stent placement in her right ureter. Patient states that she had some leaking from her stent and was told by her urologist to take the stent out. P atient states that after she took the stent out and she ended up having some bleeding. She also had some flank pain. States that it was intense earlier, but subsided. TRAVEL OUTSIDE OF THE [place] IN LAST 30 DAYS: No - Related Data Allergies/Adverse Reactions: Penicillins Allergy (Verified 02/24/20 01:54) Hives Home Medications: Losartan, lexapro Past Medical History - Social History Smoking Status: Never Smoker Frequency of alcohol use: Rare Family History: Reviewed & Not Pertinent, DM, Hypertension - Past Medical History Cardiac Medical History: Reports: Hx Hypercholesterolemia - borderline, Hx Hypertension - borderline Denies: Hx Coronary Artery Disease, Hx Heart Attack Pulmonary Medical History: Reports: Hx Asthma - RAD w/ URI's, Hx Bronchitis, Hx Pneumonia Renal/ Medical History: Reports: Hx Kidney Stones. Denies: Hx Peritoneal Dialysis GI Medical History: Reports: Hx Gastroesophageal Reflux Disease Musculoskeletal Medical History: Denies Hx Arthritis Psychiatric Medical History: Denies: Hx Depression Past Surgical History: Reports: Hx Section, Hx Cholecystectomy, Hx Kidney (Renal Surgery), Hx Orthopedic Surgery - BL anterior tibialis fasciotomy for compartment syndrome/ l finger surgery, Hx Pancreatic Surgery, Hx Tubal Ligation, Other - Her surgery and bilateral tubal ligation. Denies: Hx Appendectomy, Hx Hysterectomy, Hx Pacemaker - Immunizations Immunizations up to date: Yes Hx Diphtheria, Pertussis, Tetanus Vaccination: Yes Review of Systems - Review of Systems Notes: REVIEW OF SYSTEMS: CONSTITUTIONAL : Denies recent illness. Denies recent unintentional weight loss. Denies fever, chills, or sweats. EENT: Denies eye, ear, throat, or mouth pain, discharge, or symptoms. Denies nasal or sinus congestion. CARDIOVASCULAR: Denies chest pain. RESPIRATORY: Denies shortness of breath, cough, congestion, difficulty breathing, or wheezing. GASTROINTESTINAL: Denies nausea, vomiting, and diarrhea. Denies abdominal pain. Denies constipation. GENITOURINARY: See HPI. MUSCULOSKELETAL: See HPI. Denies joint pain or swelling. SKIN: Denies rash, itchiness, or lesions HEMATOLOGIC : Denies easy bruising or bleeding. LYMPHATIC: Denies swollen, painful, enlarged glands. NEUROLOGICAL: Denies no numbness or tingling denies weakness. Denies headache. Denies altered mental status. Denies alteration in speech. PSYCHIATRIC: Denies stress, anxiety, alteration in sleep patterns, or depression. All other systems reviewed and negative. Physical Exam - Vital signs Vitals: Temp Pulse Resp BP Pulse Ox 97.9 F 92 16 148/97 H 95 02/23/20 23:27 02/23/20 23:27 02/23/20 23:27 02/23/20 23:27 02/23/20 23:27 - Notes Notes: PHYSICAL EXAMINATION: GENERAL: Appears well, healthy, well-nourished, no acute distress. HEAD: Normocephalic, atraumatic. EYES: PERRL, conjunctiva normal, all extraocular movements intact, sclera nonicteric ENT: Moist mucous membranes. NECK: Supple, no noticeable swelling, redness, rash. Normal range of motion. LUNGS: Equal breath sounds bilaterally and clear to auscultation. No wheezes rales or rhonchi. CARDIOVASCULAR: S1-S2, regular rate, regular rhythm. Radial pulses 2+, normal. ABDOMEN: Normoactive bowel sounds. Soft, nontender, no guarding, no rebound tenderness, and no masses palpated. EXTREMITIES: Normal strength and range of motion, no pitting or edema. No cyanosis. NEUROLOGICAL: Moves all extremities upon command. Strength 5/5 in all extremities. PSYCH: Normal mood, normal affect. SKIN: Warm, dry. No rash, lesions, ulcerations noted. Normal skin turgor. BACK: Slight CVA tenderness to right flank. Course - Re-evaluation Re-evalutation: 02/24/20 04:09 Patient has a large amount of blood in her urine and she also has some nitrates in her urine. We will start the patient on Keflex. She has good follow-up with her urologist. Follow-up precautions were given. Verbal discharge instructions were given to the patient. They verbalized understanding. They are stable for discharge. - Vital Signs Vital signs: Temp Pulse Resp BP Pulse Ox 98.4 F 87 18 166/83 H 98 02/24/20 02:24 02/24/20 04:28 02/24/20 04:28 02/24/20 04:28 02/24/20 04:28 - Laboratory Laboratory results interpreted by me: 02/24/20 02:15 Urine Protein 100 H Urine Glucose (UA) 50 H Urine Blood LARGE H Urine Nitrite (Reflex) POSITIVE H Urine Urobilinogen 4.0 H Discharge - Discharge Clinical Impression: Flank pain Condition: Stable Disposition: HOME, SELF-CARE Additional Instructions: You were seen today in the emergency department with flank pain after taking your stent out. Please make sure you are drinking plenty of fluids to help flush the blood out. Call your urologist today to make an appointment for later today or tomorrow. Take your pain medication as prescribed. Start antibiotics. Prescriptions: Ciprofloxacin HCl [Cipro 500 mg Tablet] 500 mg PO BID #10 tablet Hydrocodone/Acetaminophen [Jackson 5-325 mg Tablet] 1 tab PO Q6HP PRN #10 tablet PRN Reason:
[2020-02-24 02:37] LABS: APPEARANCE,URINE CLOUDY; BILIRUBIN,URINE NEGATIVE (NEGATIVE); COLOR,URINE RED; GLUCOSE, URINE 50 mg/dL (NEGATIVE); KETONES,URINE NEGATIVE (NEGATIVE); PROTEIN,URINE 100 mg/dL (NEGATIVE)
[2020-02-24] MEDS ORDERED: HYDROCODONE/ACETAMINOPHEN 5-325 MG TABLET PO ONE (04:12)
[2020-02-24] MEDS ORDERED: CIPROFLOXACIN HCL 500 MG TABLET PO ONE (04:22)
[2020-02-24 04:29] VITALS: BP 166/83
== END 2020-02-24 04:28 | disposition home or self-care (01) ==
LOC: ER 23:18
DX: R10.9 Unspecified abdominal pain (principal); R31.9 Hematuria, unspecified; I10 Essential (primary) hypertension; J45.909 Unspecified asthma, uncomplicated; Z79.899 Other long term (current) drug therapy; Z90.49 Acquired absence of other specified parts of digestive tract; Z87.442 Personal history of urinary calculi; Z88.0 Allergy status to penicillin; Z98.51 Tubal ligation status
CPT/HCPCS: 36415; 81001; 87086; 87088; 87186; 99284

== ENCOUNTER 2020-07-23 09:47 | Emergency (ER) | payer BC ==
--- NOTE | 2020-07-23 12:59 | RADIOLOGY REPORT (SQ) ---
EXAM DESCRIPTION: CHEST SINGLE VIEW IMAGES COMPLETED DATE/TIME: 07/23/2020 12:48 pm REASON FOR STUDY: shortness of breath COMPARISON: None. EXAM PARAMETERS: NUMBER OF VIEWS: One view. TECHNIQUE: Single frontal radiographic view of the chest acquired. RADIATION DOSE: NA LIMITATIONS: None. FINDINGS: LUNGS AND PLEURA: No opacities, masses or pneumothorax. No pleural effusion. MEDIASTINUM AND HILAR STRUCTURES: No masses. Contour normal. HEART AND VASCULAR STRUCTURES: Heart normal in size. Normal vasculature. BONES: No acute findings. HARDWARE: None in the chest. OTHER: No other significant finding. IMPRESSION: NO ACUTE RADIOGRAPHIC FINDING IN THE CHEST. TECHNICAL DOCUMENTATION: JOB ID: [id number] 2010 [employer]- All Rights Reserved Reading location - IP/workstation name: [email or web address]
--- NOTE | 2020-07-23 13:18 | ER Document Report ---
HPI - HPI Time Seen by Provider: 07/23/20 12:07 Pain Level: 2 Notes: 45-year-old female patient presented to the emergency department concern for shortness of breath. Patient reports shortness of breath has been intermittent over the last few days. She also reports a nonproductive cough. She is concerned she may have Covid and is requesting testing. She denies any underlying health conditions. She denies any known exposure to any Covid positive persons. - CONSTITUTIONAL Notes: Shortness of breath with cough - REPRODUCTIVE Reproductive: DENIES: : Past Medical History - General Information source: Patient - Social History Smoking Status: Never Smoker Frequency of alcohol use: Occasional Family History: Reviewed & Not Pertinent, DM, Hypertension - Past Medical History Cardiac Medical History: Reports: Hx Hypercholesterolemia - borderline, Hx Hypertension - borderline Pulmonary Medical History: Reports: Hx Asthma - RAD w/ URI's, Hx Bronchitis, Hx Pneumonia Renal/ Medical History: Reports: Hx Kidney Stones. Denies: Hx Peritoneal Dialysis GI Medical History: Reports: Hx Gastroesophageal Reflux Disease Musculoskeletal Medical History: Denies Hx Arthritis Psychiatric Medical History: Denies: Hx Depression Past Surgical History: Reports: Hx Section, Hx Cholecystectomy, Hx Kidney (Renal Surgery), Hx Orthopedic Surgery - BL anterior tibialis fasciotomy for compartment syndrome/ l finger surgery, Hx Pancreatic Surgery, Hx Tubal Ligation, Other - Her surgery and bilateral tubal ligation. Denies: Hx Appendectomy, Hx Hysterectomy, Hx Pacemaker - Immunizations Immunizations up to date: Yes Hx Diphtheria, Pertussis, Tetanus Vaccination: Yes Vertical Provider Document - CONSTITUTIONAL Notes: PHYSICAL EXAMINATION: GENERAL: Well-appearing, well-nourished and in no acute distress. HEAD: Atraumatic, normocephalic. EYES: Pupils equal round extraocular movements intact, conjunctiva are normal. ENT: Nares patent NECK: Normal range of motion LUNGS: No respiratory distress, lung sounds clear and equal bilaterally. Musculoskeletal: Normal range of motion NEUROLOGICAL: Normal speech, normal gait. PSYCH: Normal mood, normal affect. SKIN: Warm, Dry, normal turgor, no rashes or lesions noted. - INFECTION CONTROL TRAVEL OUTSIDE OF THE [place] IN LAST 30 DAYS: No Course - Re-evaluation Re-evalutation: Work-up unremarkable, no indication for further testing or admission. All test results discussed with patient, patient verbalized understanding and agreement with treatment plan as well as ED return precautions. - Vital Signs Vital signs: Temp Pulse Resp BP Pulse Ox 97.8 F 83 18 143/82 H 95 07/23/20 09:54 07/23/20 09:54 07/23/20 09:54 07/23/20 09:54 07/23/20 09:54 - Laboratory Results Critical Laboratory Results Reviewed: No Critical Results - Radiology Results Critical Radiology Results Reviewed: No Critical Results Discharge - Discharge Clinical Impression: Person under investigation for COVID-19, Sore throat Condition: Stable Disposition: HOME, SELF-CARE Additional Instructions: Your rapid strep test was negative. Your chest x-ray did not show any evidence of pneumonia. Your COVID-19 test is pending. Your symptoms are consistent with Covid however we will not know sure for sure until your test has resulted. Please self quarantine as outlined in the informational sheet that I have included. We will contact you if your test is positive. Drink plenty of fluids. Tylenol or ibuprofen for any fever or body aches. Follow-up with your primary care provider. Forms: Return to Work Referrals: BORIS SERNA MD [Primary Care Provider] - Follow up as needed
[2020-07-23 14:09] VITALS: BP 144/67
== END 2020-07-23 14:10 | disposition home or self-care (01) ==
LOC: ER 09:47
DX: J02.9 Acute pharyngitis, unspecified (principal); R06.02 Shortness of breath; R05 Cough; E78.00 Pure hypercholesterolemia, unspecified; I10 Essential (primary) hypertension; Z87.442 Personal history of urinary calculi; Z20.822 Contact with and (suspected) exposure to COVID-19
CPT/HCPCS: 99284; 87070; 87880; 0241U ×4; 71045; C9803